=== PATIENT | female | born 1980 | race Two or more races ===

== ENCOUNTER 2020-07-29 09:47 | Outpatient (REF) | payer MEDICAID, SELFPAY | END 2020-07-29 09:48 | disposition home or self-care (01) | LOC: HO.LAB 09:47 | PROVIDERS: PCP Internal Medicine Geriatric Medicine; Visit Provider Internal Medicine | DX: Z20.828 Contact with and (suspected) exposure to other viral communicable diseases (principal) | CPT/HCPCS: 87635 ==

== ENCOUNTER 2020-08-08 15:52 | Outpatient (REF) | payer MEDICAID, SELFPAY | END 2020-08-08 15:53 | disposition home or self-care (01) | LOC: HO.LAB 15:52 | PROVIDERS: Visit Provider Internal Medicine | DX: Z20.828 Contact with and (suspected) exposure to other viral communicable diseases (principal) | CPT/HCPCS: U0003 ==

== ENCOUNTER 2020-09-05 06:29 | Outpatient (REF) | payer MEDICAID, SELFPAY | END 2020-09-05 06:30 | disposition home or self-care (01) | LOC: HO.LAB 06:29 | PROVIDERS: Visit Provider Internal Medicine | DX: Z20.828 Contact with and (suspected) exposure to other viral communicable diseases (principal) | CPT/HCPCS: C9803; U0003 ==

== ENCOUNTER 2020-09-27 08:36 | Outpatient (REF) | payer MEDICAID, SELFPAY ==
--- NOTE | 2020-09-27 08:41 | US_ITS ---
EXAMINATION: PELVIC ULTRASOUND CLINICAL INFORMATION: Irregular bleeding. Check IUD. COMPARISON: Previous exam December 2016 TECHNIQUE: Transabdominal and transvaginal pelvic ultrasound was performed. Transvaginal exam was performed for better visualization of the uterus and ovaries. FINDINGS: The uterus is anteverted and measures 10.3 x 5 x 6.1 cm in dimension. There is an IUD in the uterus in the lower uterine segment/upper cervix. Endometrial thickness measures 0.9 cm. There is a 1.9 x 1.7 x 1.6 cm hypoechoic area adjacent to the endometrial in the anterior right uterine body questionable for a fibroid. No other focal uterine lesion is seen. There are nabothian cysts in the cervix. The ovaries are normal-appearing. The right ovary measures 2.6 x 2.7 x 3 cm and the left ovary measures 3.3 x 2.2 x 2.8 cm. There is no fluid in the pelvis. US/US transvaginal IMPRESSION: Low position of the IUD in the lower uterine segment and upper cervix. Question 1.9 x 1.7 x 1.6 cm right anterior uterine body fibroid adjacent to the endometrium.
--- NOTE | 2020-09-27 08:41 | US_ITS ---
EXAMINATION: PELVIC ULTRASOUND CLINICAL INFORMATION: Irregular bleeding. Check IUD. COMPARISON: Previous exam December 2016 TECHNIQUE: Transabdominal and transvaginal pelvic ultrasound was performed. Transvaginal exam was performed for better visualization of the uterus and ovaries. FINDINGS: The uterus is anteverted and measures 10.3 x 5 x 6.1 cm in dimension. There is an IUD in the uterus in the lower uterine segment/upper cervix. Endometrial thickness measures 0.9 cm. There is a 1.9 x 1.7 x 1.6 cm hypoechoic area adjacent to the endometrial in the anterior right uterine body questionable for a fibroid. No other focal uterine lesion is seen. There are nabothian cysts in the cervix. The ovaries are normal-appearing. The right ovary measures 2.6 x 2.7 x 3 cm and the left ovary measures 3.3 x 2.2 x 2.8 cm. There is no fluid in the pelvis. US/US pelvic complete IMPRESSION: Low position of the IUD in the lower uterine segment and upper cervix. Question 1.9 x 1.7 x 1.6 cm right anterior uterine body fibroid adjacent to the endometrium.
== END 2020-09-27 08:37 | disposition home or self-care (01) ==
LOC: HO.HMGCX 08:36
PROVIDERS: Visit Provider Advanced Practice Midwife
DX: Z30.431 Encounter for routine checking of intrauterine contraceptive device (principal); N92.6 Irregular menstruation, unspecified
CPT/HCPCS: 76830; 76856

== ENCOUNTER 2020-09-27 13:00 | Outpatient (REF) | payer MEDICAID, SELFPAY | END 2020-09-27 13:01 | disposition home or self-care (01) | LOC: HO.LAB 13:00 | PROVIDERS: PCP Internal Medicine Geriatric Medicine; Visit Provider Internal Medicine | DX: Z20.828 Contact with and (suspected) exposure to other viral communicable diseases (principal) | CPT/HCPCS: C9803; U0003 ==

== ENCOUNTER → 2020-10-11 11:56 | Outpatient (BNVA) | payer MEDICAID, SELFPAY | PROVIDERS: Visit Provider Advanced Practice Midwife | DX: Z76.89 Persons encountering health services in other specified circumstances (principal) ==

== ENCOUNTER 2020-10-12 09:43 | Outpatient (REF) | payer MEDICAID, SELFPAY ==
[2020-10-12 11:32] LABS: Hematocrit 46.6 % (37-47); Hemoglobin 15.3 g/dl (12.0-16.0); Mean Corpuscular HGB Conc 32.8 g/dl (31.0-35.0); Mean Corpuscular Hemoglobin 28.9 pg (27.0-33.0); Mean Corpuscular Volume 87.9 fL (80-98); Mean Platelet Volume 8.7 fL (9.4-12.3); Platelet Count 365 X10*3/uL (160-400); Red Cell Distribution Width 12.9 % (11.0-16.0); White Blood Count 7.2 X10*3/uL (4.8-10.8)
[2020-10-12 13:00] LABS: Thyroid Stimulating Hormone 0.62 uIU/mL (0.32-4.0)
[2020-10-13 09:13] LABS: BV Int Neg Control Negative (Negative); BV Int Pos Control Positive (Positive)
[2020-10-13 21:32] LABS: C. trachomatis RNA TMA NOT DETECTED (NOT DETECTED); N. gonorrhoeae RNA TMA NOT DETECTED (NOT DETECTED)
[2020-10-18 02:32] LABS: HPV mRNA E6/E7 rflx Not Detected (Not Detected)
== END 2020-10-12 09:44 | disposition home or self-care (01) ==
LOC: HO.LAB 09:43
PROVIDERS: PCP Internal Medicine Geriatric Medicine; Visit Provider Advanced Practice Midwife
DX: Z12.4 Encounter for screening for malignant neoplasm of cervix (principal); T83.32XA Displacement of intrauterine contraceptive device, initial encounter; N92.0 Excessive and frequent menstruation with regular cycle; N89.8 Other specified noninflammatory disorders of vagina; Z86.19 Personal history of other infectious and parasitic diseases
CPT/HCPCS: 36415; 58301; 84443; 85027; 87480; 87491; 87510; 87591; 87624; 87660; 88142

== ENCOUNTER → 2020-10-26 14:16 | Outpatient (BNVA) | payer MEDICAID, SELFPAY | PROVIDERS: Visit Provider Obstetrics & Gynecology | DX: N92.0 Excessive and frequent menstruation with regular cycle (principal) | CPT/HCPCS: 99212 ==

== ENCOUNTER 2020-10-31 10:40 | Outpatient (REF) | payer MEDICAID, SELFPAY | END 2020-10-31 10:41 | disposition home or self-care (01) | LOC: HO.LAB 10:40 | PROVIDERS: PCP Internal Medicine Geriatric Medicine; Visit Provider Internal Medicine | DX: Z20.822 Contact with and (suspected) exposure to COVID-19 (principal) | CPT/HCPCS: 36415; C9803; U0003 ==

== ENCOUNTER 2020-11-10 08:47 | Outpatient (REF) | payer MEDICAID, SELFPAY | END 2020-11-10 08:48 | disposition home or self-care (01) | LOC: HO.LAB 08:47 | PROVIDERS: PCP Internal Medicine Geriatric Medicine; Visit Provider Obstetrics & Gynecology | DX: N92.0 Excessive and frequent menstruation with regular cycle (principal) | CPT/HCPCS: 58100; 81025; 88305 ==

== ENCOUNTER 2020-11-23 07:52 | Outpatient (REF) | payer MEDICAID, SELFPAY | END 2020-11-23 07:53 | disposition home or self-care (01) | LOC: HO.LAB 07:52 | PROVIDERS: PCP Internal Medicine Geriatric Medicine; Visit Provider Internal Medicine | DX: Z20.822 Contact with and (suspected) exposure to COVID-19 (principal) | CPT/HCPCS: 36415; C9803; U0003; U0005 ==

== ENCOUNTER → 2020-11-24 11:34 | Outpatient (BNVA) | payer MEDICAID, SELFPAY | PROVIDERS: PCP Internal Medicine Geriatric Medicine; Visit Provider Obstetrics & Gynecology ==

== ENCOUNTER 2021-01-05 11:16 | Outpatient (REF) | payer MEDICAID, SELFPAY ==
[2021-01-05 14:17] LABS: SARS COV2 PCR INHOUSE NEGATIVE (Negative)
== END 2021-01-05 11:17 | disposition home or self-care (01) ==
LOC: HO.LAB 11:16
PROVIDERS: Visit Provider Internal Medicine
DX: Z20.822 Contact with and (suspected) exposure to COVID-19 (principal)
CPT/HCPCS: C9803; U0003

== ENCOUNTER 2021-01-12 07:06 | Outpatient (REF) | payer MEDICAID, SELFPAY ==
--- NOTE | ~2021-01-12 | CT_ITS ---
EXAMINATION: CT ABDOMEN WITH CONTRAST CLINICAL INFORMATION: Epigastric pain. COMPARISON: Abdominal ultrasound December 2016 TECHNIQUE: Contiguous axial thin section helical images of the abdomen were performed following the administration of oral contrast and 85 mL of Omnipaque 350 intravenous contrast. The data set was reformatted in the coronal and sagittal planes and reviewed on an independent workstation. This CT examination was performed using dose optimization techniques as appropriate, variously including the following: *Automated exposure control *Adjustment of mA and/or kV according to patient size (this includes techniques or standardized protocols for targeted exams where dose is matched to indication/reason for exam; i.e. extremities or head) *Use of iterative reconstruction technique DLP: 1322 mGy-cm FINDINGS: LUNG BASES: Clear. LIVER, GALLBLADDER, AND BILIARY TREE: There is a subtle ill-defined hypodense area in the right lobe of the liver measuring approximately 10 mm seen on axial image 15/63 series 2. This likely corresponds to the prior echogenic lesion seen on prior ultrasound of 2016. There is no intrahepatic or extrahepatic biliary dilatation. Gallbladder is normal. PANCREAS: Normal. SPLEEN: There is a 6 mm rounded cyst/cystic mass in the spleen. ADRENAL GLANDS: There is a 12 mm hypodense nonspecific left adrenal mass. Right adrenal normal. KIDNEYS AND VISUALIZED URETER: There is a 1 cm cyst in the lower pole of the left kidney. No solid masses or stones. No hydronephrosis or hydroureter. GI TRACT: The stomach is normal. The visualized large and small bowel loops are normal. The appendix is not visualized. LYMPH NODES: Normal. VASCULAR: Unremarkable. PELVIC VISCERA: Partially visualized and unremarkable. ABDOMINAL WALL: Unremarkable. OSSEOUS STRUCTURES: Mild spondylosis of the partially visualized thoracolumbar spine. Multilevel endplate osteophytes in the lower thoracic region as well as at the L5-S1 level indicative of degenerative disc disease. CT/CT abdomen w con IMPRESSION: Indeterminate right liver lesion most likely corresponds to the echogenic lesion noted on the ultrasound of 2017, although I cannot be certain of this. This most likely reflects a hemangioma. Consider followup with ultrasound to further characterize or with a dedicated MRI of the abdomen without and with contrast. Indeterminate left adrenal mass. While statistically this most likely reflects an adenoma, the findings are not definitive for this. A dedicated CT adrenal exam could be performed without and with contrast. Alternatively, an MRI of the abdomen utilizing a dedicated adrenal protocol may also help further characterize. This could likely be done in conjunction with an evaluation for the liver lesion if felt clinically necessary. Small cysts in the left kidney and spleen.
[2021-01-12] MEDS: Barium Sulfate Oral (Vanilla) 450 ML ORAL.SUSP PO (09:01)
== END 2021-01-12 07:07 | disposition home or self-care (01) ==
LOC: HO.CT 07:06
PROVIDERS: Visit Provider Internal Medicine Geriatric Medicine
DX: R10.13 Epigastric pain (principal)
CPT/HCPCS: 74160; Q9967

== ENCOUNTER 2021-01-29 11:45 | Emergency (ER) | payer MEDICAID, SELFPAY ==
--- NOTE | ~2021-01-29 | US_ITS ---
EXAMINATION: US VENOUS ULTRASOUND WITH DOPPLER LOWER EXTREMITY, LEFT CLINICAL INFORMATION: Pain. COMPARISON: None TECHNIQUE: Ultrasound of the deep veins is performed from the hip to the calf with compression sonography and color and pulse Doppler assessment. Spectral analysis with color-flow imaging is performed. FINDINGS: There is normal venous compression and respiratory variation and augmented flow. The visualized common femoral vein, superficial femoral vein, profunda femoral vein, popliteal vein shows no evidence of deep venous thrombosis. Evaluation of the calf veins shows acute thrombosis of the mid posterior tibial veins which are distended with thrombus with diminished blood flow. The adjacent peroneal veins are normal in appearance. There is no significant popliteal fossa cyst. US/US venous duplex LE IMPRESSION: [id number] (calf/distal) acute deep venous thrombosis involving the mid posterior tibial veins. No evidence of venous thrombosis at or above the level of the knee. This critical result was discussed with Dr. Shea by telephone at 1:55 PM on 01/29/2021 and it was ascertained that the content and urgency of the report was understood at the time of direct communication.
--- NOTE | ~2021-01-29 | XR_ITS ---
EXAMINATION: XR TIBIA AND FIBULA, LEFT CLINICAL INFORMATION: Leg pain COMPARISON: None TECHNIQUE: AP and lateral views of the left tibia and fibula were obtained. FINDINGS: The bones and soft tissues are normal. No fracture. No osseous lesions. XR/XR tibia fibula LT 2V IMPRESSION: Normal left tibia and fibula.
[2021-01-29 12:07] VITALS: BP 122/65; PULSE 77; RESP 17; TEMP 36.6; O2SAT 98; BMI 49.6
--- NOTE | 2021-01-29 12:35 | ED.LOWEXIN ---
HPI - Extremity Injury (Lower) General Chief Complaint: Extremity Injury, Lower Stated Complaint: leg pain Time Seen by Provider: 01/29/21 12:28 Source: patient Mode of arrival: ambulatory Limitations: no limitations History of Present Illness HPI Narrative: 40-year-old female came in for evaluation of left lower extremities pain. 40-year-old female with left leg pain for 7 days, pain described as dull aching pain, constant, moderate 6/10, no radiation of the pain. Walking makes the pain worse, nothing make it better. No recent travel or prolonged immobilization no history of DVT. Patient declined any trauma to the left leg or fever or chills. Related Data Home Medications Medication Instructions Recorded Confirmed doxycycline hyclate 100 mg capsule 100 mg PO DAILY 09/05/20 10/26/20 levonorgestrel 20 mcg/24 hours (6 INTRAUTERINE 09/05/20 10/12/20 yrs) 52 mg intrauterine device sumatriptan succinate 25 mg tablet 25 mg PO Q2-4H PRN 09/05/20 10/26/20 topiramate 25 mg tablet 25 mg PO DAILY 09/05/20 10/26/20 Previous Rx's Medication Instructions Recorded valacyclovir 500 mg tablet 1,000 mg PO DAILY #30 tab 10/12/20 medroxyprogesterone 10 mg tablet 10 mg PO DAILY 10 Days #10 tab 11/24/20 Allergies Allergy/AdvReac Type Severity Reaction Status Date / Time ibuprofen [From Motrin] Allergy Unknown HIVES, Verified 11/24/20 11:35 SWELLING Motrin Allergy Unknown Unknown Uncoded 10/26/20 14:23 Pt states no known food Allergy Unknown Unknown Uncoded 10/26/20 14:23 allerg Review of Systems Review of Systems: All other systems are reviewed and are negative Constitutional: Reports as per HPI and Reports no additional constitutional complaints Eyes: Reports as per HPI and Reports no additional eye complaints Reports system reviewed and no additional complaints, except as documented Cardiovascular: Reports as per HPI and Reports no additional cardiovascular complaints Respiratory: Reports as per HPI and Reports no additional respiratory complaints Gastrointestinal: Reports as per HPI and Reports no additional gastrointestinal complaints Genitourinary: Reports no additional female genitourinary complaints Musculoskeletal: Reports no additional musculoskeletal complaints Skin/Breast: Reports system reviewed and no additional complaints, except as docu Psychiatric: Reports no additional psychiatric complaints Endocrine: Reports no additional endocrine complaints Hematologic/Lymphatic: Reports no additional hematologic/lymphatic complaints Allergic/Immunologic: Reports no additional allergic/immunologic complaints Reports system reviewed and no additional complaints, except as documented and Reports Abnormal speech present [facility] Past Medical History Medical History History of major depression Hx of anxiety disorder Hx of herpes simplex infection Hx of insomnia Surgical History Hx of appendectomy Hx of tubal ligation Family History Family History Maternal Grandmother History of breast cancer Maternal Aunt History of breast cancer Social History Social History Alcohol intake: current Alcohol intake frequency: holidays/special occasions only Smoking Status: Never smoker Advance Directives: No Advance Directives Information Provided: No Physical Exam Vital Signs: Vital Signs: Last Vital Signs Temp 98 F 01/29/21 12:07 Pulse 77 01/29/21 12:07 Resp 17 01/29/21 12:07 BP 122/65 01/29/21 12:07 Pulse Ox 98 01/29/21 12:07 Body Mass Index 49.6 Vital signs have been reviewed as appeared to be correct. Blood pressure normal. Heart rate normal. Respiration rate normal. Temperature normal. Oxygen saturation normal. Appearance: Alert. Oriented X3. No acute distress. Head: Normal external exam. Normocephalic. Atraumatic. No Mackay signs noted. No raccoon eyes noted Eyes: PERRLA. EOMI. Conjunctiva and sclera normal. Eyelids normal. ENT: TM's Normal. Pharynx normal. Uvula midline. Moist mucous membranes. No trismus noted. No drooling noted. No muffled voice noted. Neck: Normal inspection. Neck supple. FROM. No adenopathy. Thyroid Normal. No meningeal signs. No neck mass noted. CVS: Normal heart rate and rhythm. Heart sound normal. No murmurs noted. Pulses normal throughout. Respiratory: No respiratory distress. Painless inspiration. Breath sounds normal. No wheezes/rales/rhonchi noted. Chest nontender. No accessory muscle usage noted or decreased air movement noted. Abdomen: Soft and nontender. Bowel sounds normal in all 4 quadrants. No distention noted. No organomegaly noted. No visible injury noted. Back: No CVA tenderness. Full range of motion noted. Skin: Skin warm and dry. Normal skin color. Normal skin turgor. No rashes/lesions/lacerations noted. Extremities: Left calf tenderness, no swelling, no deformity, neurovascularly intact. Patient got COVID vaccination in the left arm which is slightly tender at the area with some erythema, no discharge. Neuro: Oriented X 3. No motor deficit. No sensory deficit. Reflexes normal. Course Course Course Narrative: Assessment and plan. 40-year-old female came in for evaluation of left lower extremities pain ultrasound revealed new acute DVT in the left leg below the knee. Patient require anti coagulation therapy, due to patient's overweight issues most off direct oral anticoagulation agent would be in optimal for her except Xarelto, Xarelto will be started as 15 mg b.i.d. for 21 days then 20 mg p.o. once daily. As I discussed with the patient medicine for occult to follow up with PCP to prescribe and follow-up while she was on anticoagulation therapy. I will prescribe the 1st 21 days worth of Xarelto. Patient was instructed to return immediately to the emergency department if any chest pain or shortness of breath. MDM - Extremity Injury (Lower) Lab Data Attestation: I reviewed the patient's lab results. Result diagrams: 01/29/21 14:29 01/29/21 14:29 Labs: Lab Results 01/29/21 01/29/21 01/29/21 Range/Units 14:29 14:29 14:29 WBC 7.6 (4.8-10.8) X10*3/uL RBC 4.79 (4.20-5.50) X10*6/uL Hgb 14.5 (12.0-16.0) g/dl Hct 43.3 (37-47) % MCV 90.4 (80-98) fL MCH 30.3 (27.0-33.0) pg MCHC 33.5 (31.0-35.0) g/dl RDW 12.6 (11.0-16.0) % Plt Count 335 (160-400) X10*3/uL MPV 8.8 L (9.4-12.3) fL Immature Gran % (Auto) 0.4 (0.0-0.4) % Neut % (Auto) 55.3 (45-73) % Lymph % (Auto) 31.5 (20-40) % [place] % (Auto) 10.1 (2-11) % Eos % (Auto) 2.2 (0-4) % Baso % (Auto) 0.5 (0-2) % Lymph # (Auto) 2.4 (1.2-4.9) X10*3/uL [place] # (Auto) 0.8 (0.1-1.2) X10*3/uL Eos # (Auto) 0.2 (0.0-0.4) X10*3/uL Baso # (Auto) 0.0 (0.0-0.2) X10*3/uL Abs Immat Gran (auto) 0.03 (0.00-0.03) X10*3/uL Absolute Neuts (auto) 4.2 (2.0-8.3) X10*3/uL Absolute Nucleated RBC 0.000 (0.0-0.012) X10*3/uL Nucleated RBC % (auto) 0.0 (0.0-0.2) /100WBC PT (10.8-13.0) SEC INR (0.9-1.1) APTT (24.1-38.0) SEC D-Dimer 1516 NG/ML Sodium 142 (135-145) mmol/L Potassium 4.2 (3.3-5.1) mmol/L Chloride 110 H (96-108) mmol/L Carbon Dioxide 23 (22-29) mmol/L Anion Gap 13 (12-20) BUN 14 (9-16) mg/dL Creatinine 0.76 (0.5-1.4) mg/dL Estim Creat Clear Calc 130.3 Estimated GFR > 60 Random Glucose 84 (60-115) mg/dL Calcium 9.9 (8.4-10.2) mg/dL Total Creatine Kinase (26-140) U/L 01/29/21 01/29/21 Range/Units 14:29 14:30 WBC (4.8-10.8) X10*3/uL RBC (4.20-5.50) X10*6/uL Hgb (12.0-16.0) g/dl Hct (37-47) % MCV (80-98) fL MCH (27.0-33.0) pg MCHC (31.0-35.0) g/dl RDW (11.0-16.0) % Plt Count (160-400) X10*3/uL MPV (9.4-12.3) fL Immature Gran % (Auto) (0.0-0.4) % Neut % (Auto) (45-73) % Lymph % (Auto) (20-40) % [place] % (Auto) (2-11) % Eos % (Auto) (0-4) % Baso % (Auto) (0-2) % Lymph # (Auto) (1.2-4.9) X10*3/uL [place] # (Auto) (0.1-1.2) X10*3/uL Eos # (Auto) (0.0-0.4) X10*3/uL Baso # (Auto) (0.0-0.2) X10*3/uL Abs Immat Gran (auto) (0.00-0.03) X10*3/uL Absolute Neuts (auto) (2.0-8.3) X10*3/uL Absolute Nucleated RBC (0.0-0.012) X10*3/uL Nucleated RBC % (auto) (0.0-0.2) /100WBC PT 12.1 (10.8-13.0) SEC INR 1.0 (0.9-1.1) APTT 38.2 H (24.1-38.0) SEC D-Dimer NG/ML Sodium (135-145) mmol/L Potassium (3.3-5.1) mmol/L Chloride (96-108) mmol/L Carbon Dioxide (22-29) mmol/L Anion Gap (12-20) BUN (9-16) mg/dL Creatinine (0.5-1.4) mg/dL Estim Creat Clear Calc Estimated GFR Random Glucose (60-115) mg/dL Calcium (8.4-10.2) mg/dL Total Creatine Kinase 60 (26-140) U/L Imaging Data Left leg x-ray: Radiologist's impression: Normal left tibia and fibula. Left leg Doppler ultrasound: Radiologist's impression: [id number] (calf/distal) acute deep venous thrombosis involving the mid posterior tibial veins. No evidence of venous thrombosis at or above the level of the knee. Discharge Plan Discharge Clinical Impression: DVT (deep venous thrombosis) Patient Disposition: Home, Self-Care Instructions: Deep Vein Thrombosis (ED) Prescriptions: No Action Mirena 20 mcg/24 hours (6 yrs) 52 mg intrauterine device intrauterine RF: 0 doxycycline hyclate 100 mg capsule 100 mg PO DAILY RF: 0 topiramate 25 mg tablet 25 mg PO DAILY RF: 0 sumatriptan succinate 25 mg tablet 25 mg PO Q2-4H PRNRF: 0 valacyclovir [Valtrex] 500 mg tablet 1,000 mg PO DAILY Qty: 30 RF: 5 medroxyprogesterone [Provera] 10 mg tablet 10 mg PO DAILY 10 Days Qty: 10 RF: 2
[2021-01-29 14:36] LABS: MANUAL DIFF FLAG NO
[2021-01-29 14:37] LABS: Basophils Percent Auto 0.5 % (0-2); Eosinophils Absolute Auto 0.2 X10*3/uL (0.0-0.4); Eosinophils Percent Auto 2.2 % (0-4); Hematocrit 43.3 % (37-47); Hemoglobin 14.5 g/dl (12.0-16.0); Imm Gran Abs Auto 0.03 X10*3/uL (0.00-0.03); Imm Gran Pct Auto 0.4 % (0.0-0.4); Lymphocytes Absolute Auto 2.4 X10*3/uL (1.2-4.9); Lymphocytes Percent Auto 31.5 % (20-40); Mean Corpuscular HGB Conc 33.5 g/dl (31.0-35.0); Mean Corpuscular Hemoglobin 30.3 pg (27.0-33.0); Mean Corpuscular Volume 90.4 fL (80-98); Mean Platelet Volume 8.8 fL (9.4-12.3); Monocytes Absolute Auto 0.8 X10*3/uL (0.1-1.2); Monocytes Percent Auto 10.1 % (2-11); Neutrophils Absolute Auto 4.2 X10*3/uL (2.0-8.3); Neutrophils Percent Auto 55.3 % (45-73); Platelet Count 335 X10*3/uL (160-400); Red Blood Count 4.79 X10*6/uL (4.20-5.50); Red Cell Distribution Width 12.6 % (11.0-16.0); White Blood Count 7.6 X10*3/uL (4.8-10.8)
[2021-01-29 14:43] LABS: Prothrombin Time 12.1 SEC (10.8-13.0)
[2021-01-29 14:46] LABS: Partial Thromboplastin Time 38.2 SEC (24.1-38.0)
[2021-01-29 14:53] LABS: D Dimer 1516 NG/ML
[2021-01-29 15:08] LABS: Anion Gap 13 (12-20); Blood Urea Nitrogen 14 mg/dL (9-16); Calcium 9.9 mg/dL (8.4-10.2); Carbon Dioxide 23 mmol/L (22-29); Chloride 110 mmol/L (96-108); Creatinine Clr Calc Pharmacy 130.3; Estimated Glomerular Filt Rate > 60; Glucose Random 84 mg/dL (60-115); Potassium 4.2 mmol/L (3.3-5.1); Sodium 142 mmol/L (135-145)
[2021-01-29] MEDS: Rivaroxaban 15 MG TABLET PO (15:35)
--- NOTE | 2021-01-29 15:50 | PC.NURSE ---
#20 prn angio inserted left ac during blood draw, removed at time of dc
== END 2021-01-29 15:49 | disposition home or self-care (01) ==
PROVIDERS: Emergency Provider Emergency Medicine; PCP Internal Medicine Geriatric Medicine
DX: I82.402 Acute embolism and thrombosis of unspecified deep veins of left lower extremity (principal); M79.662 Pain in left lower leg; R60.0 Localized edema; Z79.899 Other long term (current) drug therapy
CPT/HCPCS: 36415; 73590; 80048; 82550; 85025; 85379; 85610; 85730; 93971; 99283; 99284

== ENCOUNTER 2021-02-14 13:09 | Outpatient (REF) | payer MEDICAID, SELFPAY ==
[2021-02-14 13:54] LABS: COVID-19 Test Negative (Negative)
== END 2021-02-14 13:10 | disposition home or self-care (01) ==
LOC: HO.LAB 13:09
PROVIDERS: Visit Provider Internal Medicine
DX: Z20.822 Contact with and (suspected) exposure to COVID-19 (principal)
CPT/HCPCS: 36415; 87635; C9803

== ENCOUNTER → 2021-02-28 08:13 | Outpatient (BNVA) | payer MEDICAID, SELFPAY | PROVIDERS: PCP Internal Medicine Geriatric Medicine; Visit Provider Obstetrics & Gynecology | DX: I82.409 Acute embolism and thrombosis of unspecified deep veins of unspecified lower extremity (principal); N92.0 Excessive and frequent menstruation with regular cycle | CPT/HCPCS: 99212 ==

== ENCOUNTER 2021-03-21 10:34 | Outpatient (REF) | payer MEDICAID, SELFPAY ==
[2021-03-21 16:35] LABS: CT PCR NOT DETECTED (Not Detect.); NG PCR NOT DETECTED (Not Detect.)
[2021-03-22 10:04] LABS: BV Int Neg Control Negative (Negative); BV Int Pos Control Positive (Positive)
== END 2021-03-21 10:35 | disposition home or self-care (01) ==
LOC: HO.LAB 10:34
PROVIDERS: PCP Internal Medicine Geriatric Medicine; Visit Provider Advanced Practice Midwife
DX: Z11.3 Encounter for screening for infections with a predominantly sexual mode of transmission (principal); N76.0 Acute vaginitis; Z20.2 Contact with and (suspected) exposure to infections with a predominantly sexual mode of transmission
CPT/HCPCS: 87480; 87491; 87510; 87591; 87660; 99212

== ENCOUNTER 2021-05-15 00:29 | Emergency (ER) | payer MEDICAID, SELFPAY ==
--- NOTE | ~2021-05-15 | CT_ITS ---
EXAMINATION: CT ANGIOGRAM OF THE CHEST WITH AND WITHOUT CONTRAST (CT PULMONARY ANGIOGRAM FOR PE) CLINICAL INFORMATION: Reason for Exam chest pain elevated ddimer COMPARISON: CTA chest dated 07/24/2013 TECHNIQUE: Prior to contrast administration, noncontrast localization images were obtained. Subsequently, multidetector volumetric imaging was performed from the thoracic inlet to below the diaphragms following the administration of 70 mL Omnipaque 350 intravenous contrast. No contrast reaction reported Sagittal, coronal, and MIP oblique sagittal reformatted images were obtained on the CT workstation, uploaded to PACS, and reviewed. This CT examination was performed using dose optimization techniques as appropriate, variously including the following: *Automated exposure control *Adjustment of mA and/or kV according to patient size (this includes techniques or standardized protocols for targeted exams where dose is matched to indication/reason for exam; i.e. extremities or head) *Use of iterative reconstruction technique Total exam dose-length product 603 mGy-cm FINDINGS: QUALITY OF STUDY/CONTRAST BOLUS: Suboptimal. PULMONARY ARTERIES: No central or segmental pulmonary emboli. THORACIC AORTA: No aneurysm or dissection. LUNG: No focal consolidation, nodules or masses. PLEURA: No pleural effusion or pneumothorax. MEDIASTINUM: Normal heart size. No pericardial effusion. No hilar or mediastinal lymphadenopathy. No evidence of septal bowing or right heart strain. No reflux of contrast into the hepatic veins to suggest elevated right heart pressures. CHEST WALL/AXILLA: No axillary or internal mammary lymphadenopathy. OSSEOUS STRUCTURES: No acute or suspicious osseous abnormality. 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 No further follow-up required. CT/CT angio chest PE protocol IMPRESSION: No evidence of pulmonary embolism. No aortic aneurysm or dissection. No pneumonitis, parenchymal consolidation or pneumothorax. VTE: negative
--- NOTE | ~2021-05-15 | XR_ITS ---
EXAMINATION: XR CHEST CLINICAL INFORMATION: Chest pain COMPARISON: 04/27/2019 TECHNIQUE: 2 views of the chest were obtained. FINDINGS: No significant abnormality is noted involving the heart, lungs, mediastinum, bony thorax or soft tissues. XR/XR chest 2V IMPRESSION: Unremarkable examination.
[2021-05-15 01:18] VITALS: BP 128/77; PULSE 77; RESP 18; TEMP 36.8; O2SAT 98; BMI 45.7
--- NOTE | 2021-05-15 02:35 | ED_ITS ---
HPI - Chest Pain General Chief Complaint: Chest Pain Stated Complaint: chest pain/kidney pain Time Seen by Provider: 05/15/21 01:32 Source: patient Mode of arrival: ambulatory Limitations: no limitations History of Present Illness HPI narrative: 40 yo female with hx of DVT - 2 years ago completed xarelto but unsure why she had it, HSV, BARTOLOME, anxiety/depression comes in with c/o upper abdominal pain and chest pain - upper abdominal pain for the last several days had a MRI at [facility] [place] on Saturday no reports known and chest pain > 12 hours now , some nausea as well MD complaint: chest pain and other (upper abdominal pain) Pertinent past history: other (DVT) Onset (ago): day(s) (1) Timing of current episode: constant Prior episodes: No Onset: during rest Pain location: substernal and epigastric Pain radiation: none Severity: moderate Quality: dull Relieving factors: nothing Exacerbating factors: eating Associated symptoms: nausea Treatment prior to arrival: none Related Data Home Medications Medication Instructions Recorded Confirmed doxycycline hyclate 100 mg capsule 100 mg PO DAILY 09/05/20 02/28/21 sumatriptan succinate 25 mg tablet 25 mg PO Q2-4H PRN 09/05/20 02/28/21 topiramate 25 mg tablet 25 mg PO DAILY 09/05/20 02/28/21 Previous Rx's Medication Instructions Recorded valacyclovir 500 mg tablet 1,000 mg PO DAILY #30 tab 10/12/20 (Valtrex) rivaroxaban 15 mg tablet (Xarelto) 15 mg PO BID 21 Days #42 tab 01/29/21 clotrimazole-betamethasone 1 1 appl TOPICAL BID PRN 7 Days #45 g 03/21/21 %-0.05 % topical cream fluconazole 150 mg tablet 150 mg PO ONCE PRN 1 Days #2 tab 03/21/21 (Diflucan) valacyclovir 500 mg tablet 500 mg PO BID 30 Days #60 tab 05/01/21 (Valtrex) famotidine 20 mg tablet (Pepcid) 20 mg PO DAILY PRN #30 tab 05/15/21 Allergies Allergy/AdvReac Type Severity Reaction Status Date / Time ibuprofen [From Motrin] Allergy Unknown HIVES, Verified 03/21/21 11:16 SWELLING Motrin Allergy Unknown Unknown Uncoded 10/26/20 14:23 Review of Systems Review of Systems: Constitutional : No Weight loss, No Fever, No Chills ENT/Mouth : No sore throat, No Rhinorrhea Eyes: No Swelling, No Redness Cardiovascular : pos Chest Pain, No SOB, NoEdema Respiratory : No Cough, No Sputum, No Wheezing Gastrointestinal : Positive Nausea, no Vomiting, no Diarrhea, positive abdominal Pain, No Hematochezia, No Melena Genitourinary : No Dysuria, No Urinary Frequency, No Hematuria, No Urgency Musculoskeletal : No joint pain, No Myalgias, No Joint Swelling Skin : No Skin Lesions, No rash Neuro : No Weakness, No Numbness, No Dizziness, No Headache Psych : No Anxiety/Panic, No Depression Heme/Lymph: No Bruising, No Lymphadenopathy Endocrine : No Polyuria, No Polydipsia All other systems reviewed and are negative. [facility] Past Medical History Attestation statement: The following information was validated with the patient. Medical History DVT (deep venous thrombosis) History of major depression Hx of anxiety disorder Hx of blood clots Hx of herpes simplex infection Hx of insomnia Surgical History Hx of appendectomy Hx of tubal ligation Family History Family History Maternal Grandmother History of breast cancer Maternal Aunt History of breast cancer Social History Social History Alcohol intake: current Alcohol intake frequency: holidays/special occasions only Patient Tobacco Use Status: Never used Tobacco Advance Directives: No Patient : No Physical Exam Vital Signs: Vital Signs: Last Vital Signs Temp 98.3 F 05/15/21 01:18 Pulse 77 05/15/21 03:30 Resp 16 05/15/21 03:08 BP 128/78 05/15/21 03:30 Pulse Ox 97 05/15/21 03:08 Body Mass Index 45.7 Appearance: Alert. Oriented X3. No acute distress. Eyes: Pupils equal, round and reactive to light. ENT: Pharynx normal. Neck: Normal inspection. Neck supple. CVS: Normal heart rate and rhythm. Pulses normal. Respiratory: No respiratory distress. Breath sounds normal. Abdomen: Soft and mild RUQ and epigastric ttp no rebound or guarding Skin: Skin warm and dry. Normal skin color. Normal skin turgor. Extremities: No lower extremity edema. No calf ttp Neuro: Oriented X 3. No motor deficit. No sensory deficit. Course Course Course Narrative: MRI negative at this time from [facility] on saturday when patient had symptoms CTA for PE ordered given elevated ddimer labs stable, negative EKG and troponin MDM - Chest Pain MDM Narrative Medical decision making narrative: 40 yo female with hx of DVT - 2 years ago completed xarelto but unsure why she had it, HSV, BARTOLOME, anxiety/depression comes in with c/o upper abdominal pain and chest pain - upper abdominal pain for the last several days had a MRI at [facility] [place] on Saturday no reports known and chest pain > 12 hours now , some nausea as well at this time records from [facility] requested, IV morphine for pain, troponin x 1, ddimer, possible CT scan of abdomen/chest pending labs Lab Data Result diagrams: 05/15/21 03:02 05/15/21 03:02 Labs: Lab Results 05/15/21 05/15/21 05/15/21 Range/Units 03:02 03:02 03:02 WBC 9.3 (4.8-10.8) X10*3/uL RBC 4.76 (4.20-5.50) X10*6/uL Hgb 14.1 (12.0-16.0) g/dl Hct 42.1 (37-47) % MCV 88.4 (80-98) fL MCH 29.6 (27.0-33.0) pg MCHC 33.5 (31.0-35.0) g/dl RDW 12.1 (11.0-16.0) % Plt Count 342 (160-400) X10*3/uL MPV 8.5 L (9.4-12.3) fL Immature Gran % (Auto) 0.4 (0.0-0.4) % Neut % (Auto) 55.0 (45-73) % Lymph % (Auto) 32.3 (20-40) % [place] % (Auto) 10.4 (2-11) % Eos % (Auto) 1.4 (0-4) % Baso % (Auto) 0.5 (0-2) % Lymph # (Auto) 3.0 (1.2-4.9) X10*3/uL [place] # (Auto) 1.0 (0.1-1.2) X10*3/uL Eos # (Auto) 0.1 (0.0-0.4) X10*3/uL Baso # (Auto) 0.1 (0.0-0.2) X10*3/uL Abs Immat Gran (auto) 0.04 H (0.00-0.03) X10*3/uL Absolute Neuts (auto) 5.1 (2.0-8.3) X10*3/uL Absolute Nucleated RBC 0.000 (0.0-0.012) X10*3/uL Nucleated RBC % (auto) 0.0 (0.0-0.2) /100WBC D-Dimer 396 NG/ML Sodium 141 (135-145) mmol/L Potassium 4.2 (3.3-5.1) mmol/L Chloride 107 (96-108) mmol/L Carbon Dioxide 24 (22-29) mmol/L Anion Gap 14 (12-20) BUN 11 (9-16) mg/dL Creatinine 0.70 (0.5-1.4) mg/dL Estim Creat Clear Calc 134.6 Estimated GFR > 60 Random Glucose 102 (60-115) mg/dL Calcium 9.4 (8.4-10.2) mg/dL Magnesium 1.7 (1.6-2.6) mg/dL Total Bilirubin 0.3 (0.0-1.0) mg/dL Direct Bilirubin 0.2 (0.0-0.5) mg/dL AST 29 (5-31) U/L ALT 53 H (0-31) U/L Alkaline Phosphatase 50 (39-117) U/L Troponin I High Sens (<3.5-17.0) ng/L Total Protein 6.7 (6.5-8.0) g/dL Albumin 3.9 (3.5-5.0) g/dL Lipase 16 (8-78) U/L Urine Color Urine Appearance Urine pH (5.0-8.0) Ur Specific [place] (1.005-1.025) Urine Protein (NEG-TRACE) MG/DL Urine Glucose (UA) (NEG) MG/DL Urine Ketones (NEG) MG/DL Urine Blood (NEG) Urine Nitrite (NEG) Ur Leukocyte Esterase (NEG) Urine RBC (0) /HPF Urine WBC (0-4) /HPF Ur Squamous Epith Cells /LPF Urine Bacteria /LPF Urine Mucus /LPF Urine Test (NEGATIVE) 05/15/21 05/15/21 05/15/21 Range/Units 03:02 03:02 03:02 WBC (4.8-10.8) X10*3/uL RBC (4.20-5.50) X10*6/uL Hgb (12.0-16.0) g/dl Hct (37-47) % MCV (80-98) fL MCH (27.0-33.0) pg MCHC (31.0-35.0) g/dl RDW (11.0-16.0) % Plt Count (160-400) X10*3/uL MPV (9.4-12.3) fL Immature Gran % (Auto) (0.0-0.4) % Neut % (Auto) (45-73) % Lymph % (Auto) (20-40) % [place] % (Auto) (2-11) % Eos % (Auto) (0-4) % Baso % (Auto) (0-2) % Lymph # (Auto) (1.2-4.9) X10*3/uL [place] # (Auto) (0.1-1.2) X10*3/uL Eos # (Auto) (0.0-0.4) X10*3/uL Baso # (Auto) (0.0-0.2) X10*3/uL Abs Immat Gran (auto) (0.00-0.03) X10*3/uL Absolute Neuts (auto) (2.0-8.3) X10*3/uL Absolute Nucleated RBC (0.0-0.012) X10*3/uL Nucleated RBC % (auto) (0.0-0.2) /100WBC D-Dimer NG/ML Sodium (135-145) mmol/L Potassium (3.3-5.1) mmol/L Chloride (96-108) mmol/L Carbon Dioxide (22-29) mmol/L Anion Gap (12-20) BUN (9-16) mg/dL Creatinine (0.5-1.4) mg/dL Estim Creat Clear Calc Estimated GFR Random Glucose (60-115) mg/dL Calcium (8.4-10.2) mg/dL Magnesium (1.6-2.6) mg/dL Total Bilirubin (0.0-1.0) mg/dL Direct Bilirubin (0.0-0.5) mg/dL AST (5-31) U/L ALT (0-31) U/L Alkaline Phosphatase (39-117) U/L Troponin I High Sens < 3.5 (<3.5-17.0) ng/L Total Protein (6.5-8.0) g/dL Albumin (3.5-5.0) g/dL Lipase (8-78) U/L Urine Color YELLOW Urine Appearance HAZY Urine pH 6.0 (5.0-8.0) Ur Specific [place] >= 1.030 H (1.005-1.025) Urine Protein TRACE (NEG-TRACE) MG/DL Urine Glucose (UA) NEG (NEG) MG/DL Urine Ketones NEG (NEG) MG/DL Urine Blood 2+ H (NEG) Urine Nitrite NEG (NEG) Ur Leukocyte Esterase NEG (NEG) Urine RBC 5-9 H (0) /HPF Urine WBC 1-4 (0-4) /HPF Ur Squamous Epith Cells 2+ /LPF Urine Bacteria 2+ /LPF Urine Mucus 2+ /LPF Urine Test NEGATIVE (NEGATIVE) ECG Data ECG #1: Attestation: I personally reviewed and interpreted this ECG as follows: ECG interpretation date: 05/15/21 ECG interpretation time: 02:47 Interpretation: Rate:80 Rhythm: NSR [place]: normal Normal P waves. Normal [place]YDI. Normal QRS complex. ST T wave : normal no ELIDIA qTC: normal prior studies: no acute ischemia The study has been interpreted contemporaneously by me. . Discharge Plan Discharge Clinical Impression: Atypical chest pain Abdominal pain Qualifiers: Abdominal location: epigastric Qualified Code(s): R10.13 - Epigastric pain Patient Disposition: Home, Self-Care Instructions: Chest Pain (ED), Abdominal Pain (ED) Additional Instructions: return to ED for any worsening symptoms or concerns Prescriptions: New famotidine [Pepcid] 20 mg tablet 20 mg PO DAILY PRN (Reason: abdominal discomfort) Qty: 30 RF: 0 No Action valacyclovir [Valtrex] 500 mg tablet 500 mg PO BID 30 Days Qty: 60 RF: 1 Xarelto 15 mg tablet 15 mg PO BID 21 Days Qty: 42 RF: 0 doxycycline hyclate 100 mg capsule 100 mg PO DAILY RF: 0 topiramate 25 mg tablet 25 mg PO DAILY RF: 0 sumatriptan succinate 25 mg tablet 25 mg PO Q2-4H PRNRF: 0 valacyclovir [Valtrex] 500 mg tablet 1,000 mg PO DAILY Qty: 30 RF: 5 clotrimazole-betamethasone 1-0.05 % cream 1 appl topical BID PRN (Reason: itching) 7 Days Qty: 45 RF: 0 fluconazole [Diflucan] 150 mg tablet 150 mg PO ONCE PRN (Reason: personal) 1 Days Qty: 2 RF: 1
--- NOTE | 2021-05-15 02:42 | ECG_ITS ---
Test Reason : CP/KIDNEY PAIN Blood Pressure : / mmHG Vent. Rate : 080 BPM Atrial Rate : 080 BPM P-R Int : 156 ms QRS Dur : 076 ms QT Int : 356 ms P-R-T Axes : 004 037 012 degrees QTc Int : 410 ms Normal sinus rhythm Normal ECG When compared with ECG of 27-APR-2019 17:45, No significant change was found Referred By: Leona Nuno Electronically Signed By:ALEE LIVE MD
[2021-05-15 03:06] LABS: MANUAL DIFF FLAG NO
[2021-05-15 03:08] VITALS: BP 119/78; PULSE 70; RESP 16; O2SAT 97
[2021-05-15 03:10] LABS: Basophils Absolute Auto 0.1 X10*3/uL (0.0-0.2); Basophils Percent Auto 0.5 % (0-2); Eosinophils Absolute Auto 0.1 X10*3/uL (0.0-0.4); Eosinophils Percent Auto 1.4 % (0-4); Glucose Urine UA NEG (NEG); Hematocrit 42.1 % (37-47); Hemoglobin 14.1 g/dl (12.0-16.0); Imm Gran Abs Auto 0.04 X10*3/uL (0.00-0.03); Imm Gran Pct Auto 0.4 % (0.0-0.4); Leukocyte Esterase Urine NEG (NEG); Lymphocytes Percent Auto 32.3 % (20-40); Mean Corpuscular HGB Conc 33.5 g/dl (31.0-35.0); Mean Corpuscular Hemoglobin 29.6 pg (27.0-33.0); Mean Corpuscular Volume 88.4 fL (80-98); Mean Platelet Volume 8.5 fL (9.4-12.3); Monocytes Percent Auto 10.4 % (2-11); Neutrophils Absolute Auto 5.1 X10*3/uL (2.0-8.3); Nitrite Urine NEG (NEG); Platelet Count 342 X10*3/uL (160-400); Red Blood Count 4.76 X10*6/uL (4.20-5.50); Red Cell Distribution Width 12.1 % (11.0-16.0); Specific Gravity - Urine >= 1.030 (1.005-1.025); UACC Culture Trigger NO; Urine Blood 2+ (NEG); Urine Ketones NEG (NEG); Urine Protein TRACE MG/DL (NEG-TRACE); White Blood Count 9.3 X10*3/uL (4.8-10.8)
[2021-05-15] MEDS: Morphine Sulfate 4 MG/ML CARTRIDGE IVPUSH (03:11)
[2021-05-15 03:12] LABS: Appearance Urine HAZY; Color Urine YELLOW
[2021-05-15] MEDS: 0.9 % Sodium Chloride 500 ML IV (03:12)
[2021-05-15 03:13] LABS: UPreg QC Valid YES; Urine Pregnancy NEGATIVE (NEGATIVE)
[2021-05-15 03:17] LABS: Bacteria Urine 2+ /LPF; Mucus Urine 2+ /LPF; Squamous Epithelial Cell Urine 2+ /LPF
[2021-05-15 03:20] LABS: D Dimer 396 NG/ML
[2021-05-15 03:30] VITALS: BP 128/78; PULSE 77
[2021-05-15 03:31] LABS: Troponin-I High Sensitivity < 3.5 ng/L (<3.5-17.0)
[2021-05-15 03:35] LABS: Alanine Aminotransferase 53 U/L (0-31); Albumin Level 3.9 g/dL (3.5-5.0); Alkaline Phosphatase 50 U/L (39-117); Aspartate Amino Transferase 29 U/L (5-31); Bilirubin Direct 0.2 mg/dL (0.0-0.5); Bilirubin Total 0.3 mg/dL (0.0-1.0); Lipase 16 U/L (8-78); Magnesium 1.7 mg/dL (1.6-2.6); Total Protein 6.7 g/dL (6.5-8.0)
[2021-05-15] MEDS: iohexoL 350 MG/ML 100 ML INFUS..BTL 70 ML IV (03:49)
[2021-05-15 04:41] LABS: Anion Gap 14 (12-20); Blood Urea Nitrogen 11 mg/dL (9-16); Calcium 9.4 mg/dL (8.4-10.2); Carbon Dioxide 24 mmol/L (22-29); Chloride 107 mmol/L (96-108); Creatinine Clr Calc Pharmacy 134.6; Estimated Glomerular Filt Rate > 60; Glucose Random 102 mg/dL (60-115); Potassium 4.2 mmol/L (3.3-5.1); Sodium 141 mmol/L (135-145)
== END 2021-05-15 05:30 | disposition home or self-care (01) ==
PROVIDERS: Emergency Provider Emergency Medicine; PCP Internal Medicine Geriatric Medicine
DX: R07.89 Other chest pain (principal); R10.10 Upper abdominal pain, unspecified; Z79.899 Other long term (current) drug therapy; Z86.718 Personal history of other venous thrombosis and embolism; Z79.01 Long term (current) use of anticoagulants
CPT/HCPCS: 36415; 71046; 71275; 80048; 80076; 81001; 81025; 83690; 83735; 84484; 85025; 85379; 93005; 96361; 96374; 96375; 99284; J2270; J2405; Q9967

== ENCOUNTER 2021-05-23 10:23 | Emergency (ER) | payer MEDICAID, SELFPAY ==
--- NOTE | ~2021-05-23 | US_ITS ---
EXAMINATION: US VENOUS ULTRASOUND WITH DOPPLER LOWER EXTREMITY, BILATERAL CLINICAL INFORMATION: Bilateral leg plane. Hepatic lateral one-month ago and also multiple. COMPARISON: None TECHNIQUE: Ultrasound of the deep veins is performed from the hip to the calf with compression sonography and color and pulse Doppler assessment. Spectral analysis with color-flow imaging is performed. FINDINGS: RIGHT: There is normal venous compression and respiratory variation and augmented flow. The visualized common femoral vein, superficial femoral vein, profunda femoral vein, popliteal vein, and the trifurcation region shows no evidence of deep venous thrombosis. There is no significant popliteal fossa cyst. LEFT: There is normal venous compression and respiratory variation and augmented flow. The visualized common femoral vein, superficial femoral vein, profunda femoral vein, popliteal vein, show no evidence of deep venous thrombosis. There is noncompressible gastroc veins with no color Doppler noted in the proximal to mid calf region. There is no significant popliteal fossa cyst. If the patient's symptoms persist, followup ultrasound in 5 days 7 days might be of value to exclude proximal propagation from a non-visualized calf vein. US/US venous duplex LE BI IMPRESSION: No DVT demonstrated in the right lower extremity. Positive DVT in the left calf veins.
[2021-05-23 11:23] VITALS: BP 132/89; PULSE 85; RESP 16; TEMP 36.6; O2SAT 97; BMI 45.7
--- NOTE | 2021-05-23 11:26 | ED.LOWEXIN ---
HPI - Extremity Injury (Lower) General Chief Complaint: Extremity Injury, Lower Stated Complaint: left leg ? blood clot Time Seen by Provider: 05/23/21 11:26 Source: patient Mode of arrival: ambulatory Limitations: no limitations History of Present Illness HPI Narrative: In January patient had a blood clot in her right leg, patient is not on blood thinners. Patient was on Xarelto only for 1 month. No hypercoaguable work up. Patient denies current injury. Patient states she has calf pain on the left no redness. Patient noticed slight swelling over the past few days. Onset (ago): week(s) Severity: mild Relieving factors: nothing Exacerbating factors: palpation Related Data Home Medications Medication Instructions Recorded Confirmed doxycycline hyclate 100 mg capsule 100 mg PO DAILY 09/05/20 02/28/21 sumatriptan succinate 25 mg tablet 25 mg PO Q2-4H PRN 09/05/20 02/28/21 topiramate 25 mg tablet 25 mg PO DAILY 09/05/20 02/28/21 Previous Rx's Medication Instructions Recorded valacyclovir 500 mg tablet 1,000 mg PO DAILY #30 tab 10/12/20 (Valtrex) rivaroxaban 15 mg tablet (Xarelto) 15 mg PO BID 21 Days #42 tab 01/29/21 clotrimazole-betamethasone 1 1 appl TOPICAL BID PRN 7 Days #45 g 03/21/21 %-0.05 % topical cream fluconazole 150 mg tablet 150 mg PO ONCE PRN 1 Days #2 tab 03/21/21 (Diflucan) valacyclovir 500 mg tablet 500 mg PO BID 30 Days #60 tab 05/01/21 (Valtrex) famotidine 20 mg tablet (Pepcid) 20 mg PO DAILY PRN #30 tab 05/15/21 rivaroxaban 15 mg (42)-20 mg (9) See Rx Instructions .ROUTE 05/23/21 tablets in a starter pack (Xarelto .COMPLEX #51 ea DVT-PE Treat 30d Start) Allergies Allergy/AdvReac Type Severity Reaction Status Date / Time ibuprofen [From Motrin] Allergy Unknown HIVES, Verified 03/21/21 11:16 SWELLING Motrin Allergy Unknown Unknown Uncoded 10/26/20 14:23 Review of Systems Constitutional: Constitutional: Reports no additional constitutional complaints Eyes: Eyes: Reports no additional eye complaints ENT: Denies dizziness Cardiovascular: Cardiovascular: Reports no additional cardiovascular complaints Respiratory: Respiratory: Reports as per HPI Gastrointestinal: Gastrointestinal: Reports no additional gastrointestinal complaints Genitourinary: Genitourinary: Reports no additional female genitourinary complaints Musculoskeletal: Musculoskeletal: Reports no additional musculoskeletal complaints Integumentary/Breasts: Skin/Breast: Denies rash Neurologic: Reports system reviewed and no additional complaints, except as documented, Denies dizziness and Denies Sensory deficit (Neuro) Psychiatric: Psychiatric: Denies anxiety PMFSH Past Medical History Medical History DVT (deep venous thrombosis) History of major depression Hx of anxiety disorder Hx of blood clots Hx of herpes simplex infection Hx of insomnia Surgical History Hx of appendectomy Hx of tubal ligation Family History Family History Maternal Grandmother History of breast cancer Maternal Aunt History of breast cancer Social History Social History Alcohol intake: current Alcohol intake frequency: holidays/special occasions only Patient Tobacco Use Status: Never used Tobacco Advance Directives: No Advance Directives Information Provided: No Patient : No Physical Exam Vital Signs: Vital Signs: Last Vital Signs Temp 98.7 F 05/23/21 14:41 Pulse 76 05/23/21 14:41 Resp 16 05/23/21 14:41 BP 121/76 05/23/21 14:41 Pulse Ox 97 05/23/21 14:41 Body Mass Index 45.7 Const: Other: no acute distress Nutritional Appearance: obese Orientation/consciousness: oriented to person and patient oriented x3 Limitations: no limitations HENMT: Head: Yes normal to inspection Ears: external ears normal General nose exam: Normal external nose present Mouth: Normal oral and palatal mucosa present and oropharynx normal Throat: Yes posterior oropharynx normal Eyes: General: appearance normal, both eyes and all related structures Neck: Other: supple Neck: Yes normal visual inspection Chest: Chest palpation & inspection: normal inspection of the chest Resp: Auscultation: clear to auscultation bilaterally Cardio: Jugular venous distension: no JVD Rate: regular rate Rhythm: regular rhythm Heart sounds: S1 normal heart sound present and S2 normal heart sound present GI: Inspection: Yes normal to inspection Palpation (GI): Soft to palpation, nontender and No hepatosplenomegaly present Auscultation: normal bowel sounds : General: Yes no CVA tenderness Back/Spine/Pelvis: Back: no CVA tenderness Skin: General skin exam: no rashes or lesions noted Neuro: General: oriented to person and patient oriented x3 Cranial nerves: Yes CN's II-XII intact bilaterally Motor exam (neuro): 5/5 motor strength present throughout Sensory Exam: No Sensory deficit (Neuro) Extrem: Other: slight left calf tenderness to palpation Psych: Appearance: grossly normal Course Reevaluation(s) Reevaluation #1: Discussed with Dr. Zelaya would like the patient to be on Xarelto Time: 15:08 [facility] - Extremity Injury (Lower) Imaging Data duplex of both legs: Radiologist's impression: IMPRESSION: No DVT demonstrated in the right lower extremity. ? Positive DVT in the left calf veins. Discharge Plan Discharge Clinical Impression: DVT (deep venous thrombosis) Qualifiers: DVT location: lower extremity Affected thrombotic vein of extremity: calf muscle vein Chronicity: acute Laterality: left Qualified Code(s): I82.462 - Acute embolism and thrombosis of left calf muscular vein Patient Disposition: Home, Self-Care Instructions: Deep Vein Thrombosis (ED), Blood Thinners (ED) Prescriptions: New Xarelto DVT-PE Treat 30d Start 15 mg (42)- 20 mg (9) tablets,dose pack See Rx Instructions .ROUTE .COMPLEX Qty: 51 RF: 0 No Action valacyclovir [Valtrex] 500 mg tablet 500 mg PO BID 30 Days Qty: 60 RF: 1 famotidine [Pepcid] 20 mg tablet 20 mg PO DAILY PRN (Reason: abdominal discomfort) Qty: 30 RF: 0 Xarelto 15 mg tablet 15 mg PO BID 21 Days Qty: 42 RF: 0 doxycycline hyclate 100 mg capsule 100 mg PO DAILY RF: 0 topiramate 25 mg tablet 25 mg PO DAILY RF: 0 sumatriptan succinate 25 mg tablet 25 mg PO Q2-4H PRNRF: 0 valacyclovir [Valtrex] 500 mg tablet 1,000 mg PO DAILY Qty: 30 RF: 5 clotrimazole-betamethasone 1-0.05 % cream 1 appl topical BID PRN (Reason: itching) 7 Days Qty: 45 RF: 0 fluconazole [Diflucan] 150 mg tablet 150 mg PO ONCE PRN (Reason: personal) 1 Days Qty: 2 RF: 1 Referrals: Name,MD Artie [Primary Care Provider] - 5 days
[2021-05-23 11:39] VITALS: BP 116/80; PULSE 77; RESP 15; TEMP 36.9; O2SAT 97
[2021-05-23 12:37] VITALS: BP 109/75; PULSE 76; RESP 15; TEMP 36.8; O2SAT 97
[2021-05-23 14:41] VITALS: BP 121/76; PULSE 76; RESP 16; TEMP 37.1; O2SAT 97
== END 2021-05-23 15:18 | disposition home or self-care (01) ==
PROVIDERS: Emergency Provider Emergency Medicine; PCP Internal Medicine Geriatric Medicine
DX: I82.462 Acute embolism and thrombosis of left calf muscular vein (principal); M79.661 Pain in right lower leg; Z86.718 Personal history of other venous thrombosis and embolism
CPT/HCPCS: 93970; 99283; 99284

== ENCOUNTER 2021-06-19 08:43 | Outpatient (REF) | payer MEDICAID, SELFPAY | END 2021-06-19 08:44 | disposition home or self-care (01) | LOC: HO.LAB 08:43 | PROVIDERS: PCP Internal Medicine Geriatric Medicine; Visit Provider Internal Medicine | DX: Z20.822 Contact with and (suspected) exposure to COVID-19 (principal) | CPT/HCPCS: C9803; U0003; U0005 ==

== ENCOUNTER 2021-07-24 08:57 | Outpatient (REF) | payer MEDICAID, SELFPAY ==
--- NOTE | ~2021-07-24 | XR_ITS ---
EXAMINATION: XR KNEE, RIGHT CLINICAL INFORMATION: Right knee pain. COMPARISON: None TECHNIQUE: Four views of the right knee. FINDINGS: Mild medial femoral-tibial and patellofemoral degenerative joint changes are seen with joint space narrowing and mild marginal osteophyte formation medially. There is no acute fracture or dislocation. No significant joint effusion is seen. The soft tissues are unremarkable. XR/XR knee RT 4V IMPRESSION: Mild degenerative joint changes most consistent with osteoarthritis. No acute abnormality.
== END 2021-07-24 08:58 | disposition home or self-care (01) ==
LOC: HO.XRAY 08:57
PROVIDERS: Absent Provider Internal Medicine Geriatric Medicine; PCP Internal Medicine Geriatric Medicine; Visit Provider Internal Medicine
DX: M25.561 Pain in right knee (principal)
CPT/HCPCS: 73564

== ENCOUNTER → 2021-07-25 09:00 | Outpatient (BNV) | payer MEDICAID, SELFPAY | PROVIDERS: Visit Provider Internal Medicine Medical Oncology | DX: I82.492 Acute embolism and thrombosis of other specified deep vein of left lower extremity (principal); Z79.01 Long term (current) use of anticoagulants | CPT/HCPCS: 99203; 99213; 99214 ==

== ENCOUNTER 2021-07-28 07:32 | Outpatient (REF) | payer MEDICAID, SELFPAY ==
--- NOTE | ~2021-07-28 | XR_ITS ---
EXAMINATION: XR KNEE AP STANDING CLINICAL INFORMATION: Pain in unspecified knee. COMPARISON: Radiographs of the right knee done on 07/24/2021. TECHNIQUE: AP bilateral standing view of the knees was obtained. FINDINGS: The bony alignments are intact. Decreased joint space, subchondral sclerosis, minimal osteophyte formation, consistent with mild osteoarthrosis is present at the medial compartment of the right knee. Minimal asymmetric decreased joint space is noted at the medial compartment of the left knee as compared to the lateral side also consistent with subtle mild osteoarthrosis. No focal osseous lesion. Soft tissues are unremarkable. XR/XR knee standing BI IMPRESSION: Osteoarthrosis involving medial compartments of both knees (right greater than left).
== END 2021-07-28 07:33 | disposition home or self-care (01) ==
LOC: HO.HOSX 07:32
PROVIDERS: Visit Provider Physician Assistant
DX: M22.2X2 Patellofemoral disorders, left knee (principal); M22.2X1 Patellofemoral disorders, right knee
CPT/HCPCS: 20610; 73565; 99212; J1040

== ENCOUNTER 2021-07-31 08:21 | Outpatient (REF) | payer MEDICAID, SELFPAY ==
[2021-07-31 16:34] LABS: CT PCR NOT DETECTED (Not Detect.); NG PCR NOT DETECTED (Not Detect.)
== END 2021-07-31 08:22 | disposition home or self-care (01) ==
LOC: HO.LAB 08:21
PROVIDERS: Visit Provider Advanced Practice Midwife
DX: Z01.419 Encounter for gynecological examination (general) (routine) without abnormal findings (principal); N92.0 Excessive and frequent menstruation with regular cycle; N92.6 Irregular menstruation, unspecified; Z80.3 Family history of malignant neoplasm of breast; Z80.41 Family history of malignant neoplasm of ovary; Z80.0 Family history of malignant neoplasm of digestive organs; Z20.2 Contact with and (suspected) exposure to infections with a predominantly sexual mode of transmission
CPT/HCPCS: 87491; 87591

== ENCOUNTER 2022-03-06 09:24 | Outpatient (REF) | payer MEDICAID, SELFPAY ==
--- NOTE | ~2022-03-06 | US_ITS ---
EXAMINATION: US VENOUS ULTRASOUND WITH DOPPLER LOWER EXTREMITY, RIGHT CLINICAL INFORMATION: Pain and elevated d-dimer. COMPARISON: 05/23/2021. TECHNIQUE: Ultrasound of the deep veins is performed from the hip to the calf with compression sonography and color and pulse Doppler assessment. Spectral analysis with color-flow imaging is performed. FINDINGS: There is normal venous compression and respiratory variation and augmented flow. The visualized common femoral vein, superficial femoral vein, profunda femoral vein, popliteal vein, and the trifurcation region shows no evidence of deep venous thrombosis. There is no significant popliteal fossa cyst. If the patient's symptoms persist, followup ultrasound in 5 days 7 days might be of value to exclude proximal propagation from a non-visualized calf vein. US/US venous duplex LE RT IMPRESSION: No DVT demonstrated in the right lower extremity.
== END 2022-03-06 09:25 | disposition home or self-care (01) ==
LOC: HO.US 09:24
PROVIDERS: PCP Internal Medicine Geriatric Medicine; Visit Provider Internal Medicine Medical Oncology
DX: I82.401 Acute embolism and thrombosis of unspecified deep veins of right lower extremity (principal)
CPT/HCPCS: 93971

== ENCOUNTER → 2022-04-16 13:18 | Outpatient (BNVA) | payer MEDICAID, SELFPAY | PROVIDERS: PCP Internal Medicine Geriatric Medicine; Visit Provider Physician Assistant | DX: M23.91 Unspecified internal derangement of right knee (principal); M22.2X1 Patellofemoral disorders, right knee; M22.2X2 Patellofemoral disorders, left knee | CPT/HCPCS: 20610; 99212; J1040 ==

== ENCOUNTER 2022-08-02 09:19 | Outpatient (REF) | payer MEDICAID, SELFPAY | END 2022-08-02 09:20 | disposition home or self-care (01) | LOC: HO.LNP 09:19 | PROVIDERS: Visit Provider Advanced Practice Midwife | DX: Z13.89 Encounter for screening for other disorder (principal) ==

== ENCOUNTER 2022-08-02 09:32 | Outpatient (REF) | payer MEDICAID, SELFPAY ==
[2022-08-02 11:42] LABS: HBc Num1 6.96 S/CO (0.00-0.79); HIV AB/AG Nonreactive (Nonreactive); HIV Num 1 0.08 S/CO (0.00-0.99); ~HepC Num1 0.11 S/CO (0.00-0.79); ~Hepatitis C Antibody Nonreactive (Nonreactive)
[2022-08-02 12:59] LABS: HBc Num2 7.08 S/CO; HBc Num3 7.73 S/CO; Hepatitis B Core Antibody Reactive (Nonreactive)
[2022-08-02 17:18] LABS: CT PCR NOT DETECTED (Not Detect.); NG PCR NOT DETECTED (Not Detect.)
[2022-08-03 05:48] LABS: Syphilis Screen Nonreactive (Nonreactive)
[2022-08-04 05:52] LABS: Hepatitis B Core Antibody IgM NON-REACTIVE (NON-REACTIVE)
== END 2022-08-02 09:33 | disposition home or self-care (01) ==
LOC: HO.LAB 09:32
PROVIDERS: PCP Internal Medicine Geriatric Medicine; Visit Provider Advanced Practice Midwife
DX: Z11.3 Encounter for screening for infections with a predominantly sexual mode of transmission (principal); Z11.4 Encounter for screening for human immunodeficiency virus [HIV]; Z20.2 Contact with and (suspected) exposure to infections with a predominantly sexual mode of transmission
CPT/HCPCS: 86704; 86705; 86780; 86803; 87389; 87491; 87591

== ENCOUNTER 2022-08-06 16:02 | Emergency (ER) | payer OTHER, MEDICAID, SELFPAY ==
[2022-08-06 17:10] VITALS: PULSE 91; RESP 18; TEMP 36.4; O2SAT 97; BMI 46.9
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
[2022-08-06] MEDS: Cyclobenzaprine HCl 5 MG TABLET PO (21:27)
[2022-08-06] MEDS: Ketorolac Tromethamine 15 MG/ML VIAL IM (21:27)
== END 2022-08-06 21:35 | disposition home or self-care (01) ==
PROVIDERS: Emergency Provider Internal Medicine; PCP Internal Medicine Geriatric Medicine
DX: S19.9XXA Unspecified injury of neck, initial encounter (principal); S16.1XXA Strain of muscle, fascia and tendon at neck level, initial encounter; M54.2 Cervicalgia; M54.50 Low back pain, unspecified; V43.52XA Car driver injured in collision with other type car in traffic accident, initial encounter; Y93.9 Activity, unspecified; Y92.410 Unspecified street and highway as the place of occurrence of the external cause; Y99.9 Unspecified external cause status; Z79.899 Other long term (current) drug therapy
CPT/HCPCS: 96372; 99283; 99284; J1885

== ENCOUNTER 2022-09-18 10:27 | Outpatient (REF) | payer MEDICAID, SELFPAY ==
--- NOTE | ~2022-09-18 | US_ITS ---
EXAMINATION: US VENOUS ULTRASOUND WITH DOPPLER LOWER EXTREMITY, RIGHT CLINICAL INFORMATION: Pain behind knee COMPARISON: Previous exam February 2022 TECHNIQUE: Ultrasound of the deep veins is performed from the hip to the calf with compression sonography and color and pulse Doppler assessment. Spectral analysis with color-flow imaging is performed. FINDINGS: There is normal venous compression and respiratory variation and augmented flow. The visualized common femoral vein, superficial femoral vein, profunda femoral vein, popliteal vein, and the trifurcation region shows no evidence of deep venous thrombosis. There is no popliteal fossa cyst. US/US venous duplex LE RT IMPRESSION: No DVT or Rodas's cyst.
== END 2022-09-18 10:28 | disposition home or self-care (01) ==
LOC: HO.US 10:27
PROVIDERS: Visit Provider Internal Medicine Medical Oncology
DX: I82.401 Acute embolism and thrombosis of unspecified deep veins of right lower extremity (principal)
CPT/HCPCS: 93971

== ENCOUNTER 2023-04-10 12:43 | Outpatient (REF) | payer MEDICAID, SELFPAY ==
--- NOTE | ~2023-04-10 | XR_ITS ---
EXAMINATION: XR LUMBOSACRAL SPINE CLINICAL INFORMATION: Acute coccygeal pain. COMPARISON: Radiographs dated 12/12/2008. TECHNIQUE: AP and lateral views of the lumbar spine and lateral view of the lumbosacral junction. FINDINGS: Vertebral body heights are normal. At L5-S1, there is a 4 mm retrolisthesis. The remaining disc spaces are well-maintained. No acute fracture or spondylolisthesis is seen. At T11-T12, there is moderate anterior spondylosis. There is minimal anterior spondylosis extending from L3-L4 through L5-S1. The posterior elements are intact. The paravertebral soft tissues are unremarkable. There are pelvic phleboliths. XR/XR lumbar spine 2-3V IMPRESSION: 1. There is mild to moderate degenerative disc disease at L5-S1. 2. There is multi-level thoracolumbar spondylosis, as detailed.
== END 2023-04-10 12:44 | disposition home or self-care (01) ==
LOC: HO.XRAY 12:43
PROVIDERS: PCP Internal Medicine Geriatric Medicine; Visit Provider Family Medicine
DX: M53.3 Sacrococcygeal disorders, not elsewhere classified (principal)
CPT/HCPCS: 72100

== ENCOUNTER → 2023-04-15 15:15 | Outpatient (BNV) | payer MEDICAID, SELFPAY | PROVIDERS: PCP Internal Medicine Geriatric Medicine; Visit Provider Radiology Diagnostic Radiology | DX: Z12.31 Encounter for screening mammogram for malignant neoplasm of breast (principal) | CPT/HCPCS: 77063; 77067 ==

== ENCOUNTER 2023-04-15 15:18 | Outpatient (REF) | payer MEDICAID, SELFPAY ==
--- NOTE | ~2023-04-15 | MM_ITS ---
EXAMINATION: MM SCREENING DIGITAL BREAST TOMOSYNTHESIS, BILATERAL CLINICAL INFORMATION: Screening. Asymptomatic. The lifetime risk of breast cancer based on the Tyrer-Cuzick Model is 11.9%. COMPARISON: Mammography: Baseline mammogram TECHNIQUE: Digital breast tomosynthesis is performed in both the craniocaudal and mediolateral oblique views along with computer-aided detection (CAD). Synthesized 2D images are generated from the tomosynthesis. FINDINGS: The breasts are almost entirely fatty (ACR BI-RADS breast composition Category a). There are no significant masses, abnormal calcifications, or other abnormalities. The patient has bilateral nipple rings. MM/MM tomosynthesis screening BI IMPRESSION: No mammographic evidence of malignancy. ASSESSMENT: BI-RADS BI-RADS 1 - Negative RECOMMENDATION: Routine annual mammography screening. 1 year F/U This examination should not preclude the clinical evaluation of a suspicious palpable abnormality. This patient's information was entered into a reminder system with a target due date for their next mammogram.
== END 2023-04-15 15:19 | disposition home or self-care (01) ==
LOC: HO.MAMMO 15:18
PROVIDERS: PCP Internal Medicine Geriatric Medicine; Visit Provider Advanced Practice Midwife
DX: Z12.31 Encounter for screening mammogram for malignant neoplasm of breast (principal)
CPT/HCPCS: 77063; 77067

== ENCOUNTER 2023-07-25 13:56 | Outpatient (REF) | payer MEDICAID, SELFPAY ==
--- NOTE | ~2023-07-25 | XR_ITS ---
EXAMINATION: XR FOOT, LEFT CLINICAL INFORMATION: Tender, swollen red area over lateral fifth metatarsal head and part, sensitive area bottom left foot COMPARISON: None available. TECHNIQUE: AP, lateral, and oblique views of the left foot. FINDINGS: Calcaneal spurring. Mild hallux valgus and hammertoe deformities. No fracture, dislocation or bony erosive changes. Mild soft tissue prominence first and fifth metatarsal heads, dorsal and plantar distal foot soft tissues. No abnormal air collections or radiopaque foreign bodies. XR/XR foot LT min 3V IMPRESSION: Soft tissue changes. No acute bony pathology.
== END 2023-07-25 13:57 | disposition home or self-care (01) ==
LOC: HO.HHCX 13:56
PROVIDERS: Visit Provider Emergency Medicine
DX: R22.42 Localized swelling, mass and lump, left lower limb (principal)
CPT/HCPCS: 73630

== ENCOUNTER 2023-07-29 15:36 | Outpatient (AMB) | payer MEDICAID, SELFPAY ==
--- NOTE | 2023-07-29 15:46 | MHC.OFFVIS ---
Intake Vital Signs 07/29/23 15:50 Height 5 ft 3 in Weight 250 lb BMI 44.3 BP 117/75 Blood Pressure Location Rt brachial Position Sitting Pulse 71 Intake Visit Reasons: ? abscess of left foot Intake Note: This patient was referred by for an assessment question left foot abscess. Patient c/o; reports pain, left foot, reports unable to put on shoe due to pain. Apartment Leasing Consultant Required: No Accompanied by: Self / Same As Patient Allergies ibuprofen [From Motrin] Allergy (Unknown, Verified 07/29/23 15:50) Hives, swelling Medication List - Last Reconciled 07/30/23 by Florentino Riley MD aripiprazole 5 mg PO DAILY cholecalciferol (vitamin D3) 50 mcg PO DAILY cyclobenzaprine 5 mg PO TID PRN 7 days duloxetine 30 mg PO QAM famotidine (Pepcid) 20 mg PO DAILY PRN lidocaine 5% (Lidoderm) 1 patch topical DAILY rivaroxaban (Xarelto) 20 mg PO DAILY rivaroxaban 20 mg PO DAILY sumatriptan succinate 25 mg PO Q2-4H PRN topiramate 25 mg PO DAILY valacyclovir (Valtrex) 500 mg PO BID PRN 90 days HPI ? abscess of left foot HPI Details 42-year-old female referred for left foot abscess. She describes having an area of pain and tenderness on the lateral aspect of the left foot for over a week. She saw her primary care physician last week and was referred to me. She denies any drainage. She denies any fever or chills. She denies any trauma to the area. She denies any drainage from the area of concern. [facility] Medical History (Updated 07/30/23 @ 10:35 by Florentino Riley MD) Callus of foot CPAP (continuous positive airway pressure) dependence Morbid obesity with BMI of 45.0-49.9, adult DVT (deep venous thrombosis) Hx of blood clots Hx of herpes simplex infection Hx of insomnia History of major depression Hx of anxiety disorder Surgical History Hx of appendectomy Hx of tubal ligation Family History Maternal Grandmother History of breast cancer Maternal Aunt History of breast cancer Social History Household Members: Children Housing: Apartment Are you a primary client care specialist to a significant other at home: No Do you presently have visiting nurse or other home services: No Alcohol intake: current Alcohol intake frequency: holidays/special occasions only Patient Tobacco Use Status: Current someday Tobacco user service: No Current occupational status: employed Female Reproductive History Menstrual Age of Menarche: 13 Review of Systems Const Denies chills and Denies fever(s) Card Denies chest pain, Denies dyspnea and Denies dyspnea on exertion Resp Denies cough, Denies dyspnea and Denies dyspnea on exertion GI Denies hematochezia and Denies change in bowel habits Denies hematuria Musc Denies back pain and Denies limited range of motion Neuro Denies focal weakness and Denies convulsions Psych Denies depression and Denies mood swings Physical Exam Vital Signs: Last Vital Signs Pulse 71 07/29/23 15:50 BP 117/75 07/29/23 15:50 BMI result Body Mass Index 44.3 Const Other: Morbidly obese General: comfortable and no acute distress Orientation/consciousness: patient oriented x3 Neck Neck: Yes no lymphadenopathy Resp Auscultation: clear to auscultation bilaterally Cardio Rhythm: regular rhythm GI Other: has pannus Palpation (GI): Soft to palpation, nontender and no guarding Neuro General: patient oriented x3 Extrem Other: lateral aspect of left foot is note of a thick callus on the mid part, about 2 cm in diameter, with what appears to be hematoma underneath,no cellulitis, no fluctuance, no induration Assessment & Plan Assessment & Plan (1) Callus of foot: Code(s): L84 - Corns and callosities Plan: Current exam shows what appears to be a thick callus on the left foot with a hematoma underneath. It does not appear that she will require any I&D at this time. I advised her to do warm soaks to the area. Furthermore, I advised her to avoid any tight fitting closed toed shoes for now. I told her to stay vigilant with this area as this can developed an ulcer. I told her to come back the office if she notices any worsening or changes. We may need to debride this down the line as well. She says she is not a diabetic but was told she is a prediabetic. Coding Level of Care Code New Pt Level 3 (49326) Diagnoses Callus of foot L84
[2023-07-29 15:50] VITALS: BP 117/75; PULSE 71; BMI 44.3
== END 2023-07-29 16:06 | disposition home or self-care (01) ==
PROVIDERS: PCP Internal Medicine Geriatric Medicine; Visit Provider Surgery
DX: L84 Corns and callosities (principal)
CPT/HCPCS: 99203

== ENCOUNTER → 2023-07-29 15:36 | Outpatient (BNVA) | payer MEDICAID, SELFPAY | PROVIDERS: PCP Internal Medicine Geriatric Medicine; Visit Provider Surgery ==

== ENCOUNTER 2023-12-06 11:39 | Emergency (ER) | payer OTHER, SELFPAY ==
--- NOTE | ~2023-12-06 | US_ITS ---
EXAMINATION: US VENOUS ULTRASOUND WITH DOPPLER LOWER EXTREMITY, LEFT CLINICAL INFORMATION: Left lower extremity pain. COMPARISON: 05/23/2021 TECHNIQUE: Ultrasound of the deep veins is performed from the hip to the calf with compression sonography and color and pulse Doppler assessment. Spectral analysis with color-flow imaging is performed. FINDINGS: There is normal venous compression and respiratory variation and augmented flow. The visualized common femoral vein, superficial femoral vein, profunda femoral vein, popliteal vein, and the trifurcation region shows no evidence of deep venous thrombosis. If the patient's symptoms persist, followup ultrasound in 5 days 7 days might be of value to exclude proximal propagation from a non-visualized calf vein. US/US venous duplex LE LT IMPRESSION: No DVT demonstrated in the left lower extremity.
[2023-12-06 11:52] VITALS: BP 122/73; PULSE 71; RESP 18; TEMP 36.1; O2SAT 96; BMI 45.0
--- NOTE | 2023-12-06 12:05 | ED.GENADULT ---
HPI - General Adult General Chief complaint: Extremity Problem Stated complaint: leg pain, possible blood clot Time Seen by Provider: 12/06/23 15:25 Source: patient Mode of arrival: ambulatory Limitations: no limitations History of Present Illness HPI narrative: patient with left leg pain for two weeks and was sent in by PMD to make sure no DVT. Patient on xarelto for DVT. Patient describes a shooting pain from hip down to the left lateral knee Onset (ago): week(s) Related Data Home Medications Medication Instructions Recorded Confirmed sumatriptan succinate 25 mg tablet 25 mg PO Q2-4H PRN Migraine 09/05/20 07/30/23 Headache topiramate 25 mg tablet 25 mg PO DAILY 09/05/20 07/30/23 rivaroxaban 15 mg tablet (Xarelto) 20 mg PO DAILY 08/25/21 07/30/23 aripiprazole 10 mg tablet 5 mg PO DAILY depressive disorder 04/16/22 07/30/23 cholecalciferol (vitamin D3) 50 50 mcg PO DAILY 04/16/22 07/30/23 mcg (2,000 unit) tablet duloxetine 30 mg capsule,delayed 30 mg PO QAM depressive disorder 04/16/22 07/30/23 release lidocaine 5 % topical patch 1 patch topical DAILY 04/16/22 07/30/23 (Lidoderm) Previous Rx's Medication Instructions Recorded famotidine 20 mg tablet (Pepcid) 20 mg PO DAILY PRN abdominal 05/15/21 discomfort #30 tabs cyclobenzaprine 5 mg tablet 5 mg PO TID PRN muscle spasm 7 08/06/22 days #21 tabs valacyclovir 500 mg tablet 500 mg PO BID PRN antiviral 90 12/26/22 (Valtrex) days #90 tabs rivaroxaban 20 mg tablet 20 mg PO DAILY #90 tabs 03/14/23 acetaminophen 500 mg tablet 1,000 mg (2 x 500 mg) PO Q6H PRN 12/06/23 (Tylenol Extra Strength) pain #60 tabs cyclobenzaprine 10 mg tablet 10 mg PO TID PRN muscle spasm #20 12/06/23 tabs Allergies Allergy/AdvReac Type Severity Reaction Status Date / Time ibuprofen [From Motrin] Allergy Unknown Hives, Verified 07/29/23 15:50 swelling Review of Systems Review of Systems: Yes all other systems are reviewed and are negative Neurologic: Denies Sensory deficit (Neuro) [facility] Past Medical History Medical History Callus of foot CPAP (continuous positive airway pressure) dependence Morbid obesity with BMI of 45.0-49.9, adult DVT (deep venous thrombosis) Hx of blood clots Hx of herpes simplex infection Hx of insomnia History of major depression Hx of anxiety disorder Surgical History Hx of appendectomy Hx of tubal ligation Family History Family History Maternal Grandmother History of breast cancer Maternal Aunt History of breast cancer Social History Social History Household Members: Children Housing: Apartment Are you a primary careers counsellor to a significant other at home: No Do you presently have visiting nurse or other home services: No Alcohol intake: current Alcohol intake frequency: holidays/special occasions only Patient Tobacco Use Status: Current someday Tobacco user service: No Current occupational status: employed Physical Exam ED Vital Signs: Vital Signs - 24 hr 12/06/23 11:52 Temperature 96.9 F Pulse Rate 71 Respiratory Rate 18 Blood Pressure 122/73 Pulse Oximetry 96 Oxygen Delivery Method Room Air BMI result Body Mass Index 45.0 Const Other: obese female looking older than stated age in no acute distress. Orientation/consciousness: oriented to person and patient oriented x3 Limitations: no limitations HENMT Head: Yes normal to inspection Ears: external ears normal General nose exam: Normal external nose present Mouth: Normal oral and palatal mucosa present and oropharynx normal Throat: Yes posterior oropharynx normal Eyes General: appearance normal, both eyes and all related structures Neck Neck: Yes normal visual inspection Chest Chest palpation & inspection: normal inspection of the chest Resp Auscultation: clear to auscultation bilaterally Cardio Jugular venous distension: no JVD Rate: regular rate Rhythm: regular rhythm Heart sounds: S1 normal heart sound present and S2 normal heart sound present GI Inspection: Yes normal to inspection Palpation (GI): Soft to palpation, nontender and No hepatosplenomegaly present Auscultation: normal bowel sounds Back/Spine/Pelvis Other: left sciatic notch pain to palpation Skin General skin exam: no rashes or lesions noted Neuro General: oriented to person and patient oriented x3 Cranial nerves: Yes CN's II-XII intact bilaterally Motor exam (neuro): 5/5 motor strength present throughout Sensory Exam: No Sensory deficit (Neuro) Extrem Other: Good dorsalis pedis pulses, neuro intact. Psych Appearance: grossly normal Course Course Course Narrative: RME- 42-year-old female presents for evaluation of left leg pain. She was sent by [facility] to rule out DVT of the left lower extremity. She is on Eliquis for history of DVT. Plan for ultrasound Reevaluation(s) Reevaluation #1: will treat for sciatica Time: 15:52 Medical Decision Making Differential Diagnosis Differential Diagnoses: The differential diagnosis associated with the presentation includes DVT, sciatica, cellulitis were all considered Admission/Observation Consideration of admission/observation: Escalation of care including admission/observation considered (upon arrival patient was considered for admission) Independent Interpretation I performed an independent interpretation of an: Ultrasound (no clot seen) Radiology Impression Discussion of test interpretation with radiology: I have reviewed the radiologist's reading. (and agree) Prescription Management I considered prescription management with: Antibiotic (no cellulitis seen) Chronic Conditions Patient?s care impacted by: Diabetes and Hypertension Social Determinants Patient?s care significantly limited by Social Determinants of Health including: Low income Discharge Plan Discharge Clinical Impression: Sciatica Patient Disposition: Home, Self-Care Instructions: Sciatica (ED) Prescriptions: New acetaminophen [Tylenol Extra Strength] 500 mg tablet 1,000 mg PO Q6H PRN (Reason: pain) Qty: 60 0RF cyclobenzaprine 10 mg tablet 10 mg PO TID PRN (Reason: muscle spasm) Qty: 20 0RF No Action valacyclovir [Valtrex] 500 mg tablet 500 mg PO BID PRN (Reason: antiviral) 90 Days Qty: 90 2RF Rx Instructions: taken daily famotidine [Pepcid] 20 mg tablet 20 mg PO DAILY PRN (Reason: abdominal discomfort) Qty: 30 0RF Xarelto 15 mg tablet 20 mg PO DAILY Rx Instructions: must administer with evening meal rivaroxaban 20 mg Tablet 20 mg PO DAILY Qty: 90 4RF Rx Instructions: must administer with evening meal cyclobenzaprine 5 mg tablet 5 mg PO TID PRN (Reason: muscle spasm) 7 Days Qty: 21 0RF topiramate 25 mg tablet 25 mg PO DAILY sumatriptan succinate 25 mg tablet 25 mg PO Q2-4H PRN (Reason: Migraine Headache) Rx Instructions: do not exceed 8 doses per 24 hrs lidocaine [Lidoderm] 5 % adhesive patch,medicated 1 patch topical DAILY duloxetine 30 mg capsule,delayed release(DR/EC) 30 mg PO QAM aripiprazole 10 mg tablet 5 mg PO DAILY cholecalciferol (vitamin D3) 50 mcg (2,000 unit) tablet 50 mcg PO DAILY Referrals: Name,MD Artie [Primary Care Provider] - 5 days
[2023-12-06 16:03] VITALS: BP 129/70; PULSE 76; RESP 16; O2SAT 100
== END 2023-12-06 16:05 | disposition home or self-care (01) ==
PROVIDERS: Emergency Provider Emergency Medicine; PCP Internal Medicine Geriatric Medicine
DX: M54.32 Sciatica, left side (principal); Z86.718 Personal history of other venous thrombosis and embolism; Z79.01 Long term (current) use of anticoagulants
CPT/HCPCS: 93971; 99282; 99284

== ENCOUNTER 2024-08-06 11:07 | Emergency (ER) | payer SELFPAY ==
--- NOTE | ~2024-08-06 | CT_ITS ---
EXAMINATION: CT ANGIOGRAM OF THE CHEST WITH AND WITHOUT CONTRAST (CT PULMONARY ANGIOGRAM FOR PE) CLINICAL INFORMATION: SOB, hx of clot - not on AC COMPARISON: May 2021. TECHNIQUE: Prior to contrast administration, noncontrast localization images were obtained. Subsequently, multidetector volumetric imaging was performed from the thoracic inlet to below the diaphragms following the administration of 85 mL Omnipaque 350 intravenous contrast. No contrast reaction reported Sagittal, coronal, and MIP oblique sagittal reformatted images were obtained on the CT workstation, uploaded to PACS, and reviewed. This CT examination was performed using dose optimization techniques as appropriate, variously including the following: *Automated exposure control *Adjustment of mA and/or kV according to patient size (this includes techniques or standardized protocols for targeted exams where dose is matched to indication/reason for exam; i.e. extremities or head) *Use of iterative reconstruction technique Total exam dose-length product 451 mGy-cm FINDINGS: QUALITY OF STUDY/CONTRAST BOLUS: Suboptimal. PULMONARY ARTERIES: Filling defects in bilateral upper lobe and right lower lobe pulmonary arteries. Possible filling defect in right mid lung pulmonary artery. The smaller more peripheral vessels of the lower lobes are not well opacified. THORACIC AORTA: No aneurysm. LUNG: No focal consolidation, nodules or masses. PLEURA: There is trace posterior right pleural effusion. MEDIASTINUM: No suspiciously enlarged mediastinal or hilar adenopathy. No pericardial effusion. No evidence of septal bowing or right heart strain. CORONARY ARTERY CALCIFICATION: None visualized on this study. CHEST WALL/AXILLA: No axillary or internal mammary lymphadenopathy. OSSEOUS STRUCTURES: Spondylitic change. No acute compression fractures. UPPER ABDOMEN: Hypodense left adrenal nodule larger at 1.8 cm but measuring -24 Hounsfield units, consistent with an adenoma. No reflux of contrast into the hepatic veins to suggest elevated right heart pressures. CT/CT angio chest PE protocol IMPRESSION: CTA findings consistent with bilateral pulmonary emboli. The smaller more peripheral vessels in the lower lobes are not well opacified. Left adrenal nodule is larger since 2020 but measures -24 Hounsfield units and appears consistent with an adenoma. Fleischner guidelines were followed. VTE: positive Electronically signed by: Lionel Mustafa MD 08/06/2024 03:45 PM EDT
[2024-08-06 11:16] VITALS: BP 106/76; PULSE 79; O2SAT 98
--- NOTE | 2024-08-06 11:16 | ECG_ITS ---
Test Reason : CHEST PAIN Blood Pressure : / mmHG Vent. Rate : 073 BPM Atrial Rate : 073 BPM P-R Int : 170 ms QRS Dur : 074 ms QT Int : 358 ms P-R-T Axes : 000 041 011 degrees QTc Int : 394 ms Normal sinus rhythm Normal ECG When compared with ECG of 15-MAY-2021 00:35, No significant change was found Referred By: Xochitl Ybarra Electronically Signed By:MARK BARRERA
--- NOTE | 2024-08-06 11:16 | ED_ITS ---
HPI - General Adult General Chief complaint: Chest Pain Stated complaint: CP/SOB X2D PER EMS Time Seen by Provider: 08/06/24 11:15 Source: patient and EMS Mode of arrival: EMS Limitations: no limitations History of Present Illness ED Provider: Xochitl Ybarra PA-C HPI narrative: 43-year-old female with a history of BLE DVTs on rivaroxaban presents to the ED today with a chief complaint of chest pain x 3 days. The chest pain is worse with breathing and radiates to the back. Her pain is much worsended by deep breathes and she describes it as a squeezing sensation when she breathes. She has been unable to take her rivaroxaban due to insurance issues since November. About 2 months ago she experienced LLE calf pain which she states felt similar to how it did when she experienced the DVTs. Denies erythema or edema of the left calf and symptoms resolved spontaneously in 1 week. 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 Denies TENORIO, vision changes, abd pain, N/V, wheezing,cough, SOB or lower extremity pain. Relieving factors: none Exacerbating factors: none Associated symptoms: chest pain Treatments prior to arrival: none Related Data Home Medications ?Medication ?Instructions ?Recorded ?Confirmed sumatriptan succinate 25 mg tablet 25 mg PO Q2-4H PRN Migraine 09/05/20 07/30/23 Headache topiramate 25 mg tablet 25 mg PO DAILY 09/05/20 07/30/23 rivaroxaban 15 mg tablet (Xarelto) 20 mg PO DAILY 08/25/21 07/30/23 aripiprazole 10 mg tablet 5 mg PO DAILY depressive disorder 04/16/22 07/30/23 cholecalciferol (vitamin D3) 50 50 mcg PO DAILY 04/16/22 07/30/23 mcg (2,000 unit) tablet duloxetine 30 mg capsule,delayed 30 mg PO QAM depressive disorder 04/16/22 07/30/23 release lidocaine 5 % topical patch 1 patch topical DAILY 04/16/22 07/30/23 (Lidoderm) Previous Rx's ?Medication ?Instructions ?Recorded famotidine 20 mg tablet (Pepcid) 20 mg PO DAILY PRN abdominal 05/15/21 discomfort #30 tabs cyclobenzaprine 5 mg tablet 5 mg PO TID PRN muscle spasm 7 08/06/22 days #21 tabs valacyclovir 500 mg tablet 500 mg PO BID PRN antiviral 90 12/26/22 (Valtrex) days #90 tabs rivaroxaban 20 mg tablet 20 mg PO DAILY #90 tabs 03/14/23 acetaminophen 500 mg tablet 1,000 mg (2 x 500 mg) PO Q6H PRN 12/06/23 (Tylenol Extra Strength) pain #60 tabs cyclobenzaprine 10 mg tablet 10 mg PO TID PRN muscle spasm #20 12/06/23 tabs apixaban 5 mg (74 tabs) tablets in 5 mg PO BID #74 ea 08/06/24 a dose pack (Eliquis DVT-PE Treat 30D Start) Allergies Allergy/AdvReac Type Severity Reaction Status Date / Time ibuprofen [From Motrin] Allergy Unknown Hives, Verified 08/06/24 11:30 swelling Review of Systems 2 Constitutional: Constitutional: Reports no additional constitutional complaints, Denies chills, Denies excessive sweating, Denies fever(s), Denies headache(s) and Denies night sweats Eyes: Eyes: Reports no additional eye complaints, Denies blurry vision, Denies change in vision, Denies diplopia, Denies eye discharge, Denies loss of vision and Denies eye pain ENT: Denies dizziness and Denies headache(s) Cardiovascular: Cardiovascular: Reports no additional cardiovascular complaints, Reports chest pain, Denies lightheadedness, Denies Loss of Consciousness and Denies dyspnea Respiratory: Respiratory: Reports no additional respiratory complaints, Denies dyspnea and Denies wheezing Gastrointestinal: Gastrointestinal: Reports no additional gastrointestinal complaints, Denies abdominal pain, Denies melena, Denies hematochezia, Denies change in bowel habits and Denies change in stool character Genitourinary: Genitourinary: Denies hematuria, Denies urinary frequency, Denies dysuria, Denies urinary incontinence, Denies urinary hesitancy and Denies urinary urgency Musculoskeletal: Musculoskeletal: Reports no additional musculoskeletal complaints, Reports back pain (center of back worse with breathing ), Denies numbness and Denies tingling Neurologic: Denies dizziness, Denies headache(s), Denies loss of vision, Denies numbness and Denies tingling Psychiatric: Psychiatric: Reports no additional psychiatric complaints Endocrine: Endocrine: Reports no additional endocrine complaints and Denies excessive sweating Hematologic/Lymphatic: Hematologic/Lymphatic: Reports no additional hematologic/lymphatic complaints Allergic/Immunologic: Allergic/Immunologic: Reports no additional allergic/immunologic complaints and Denies wheezing PMFSH Past Medical History Attestation statement: The following information was validated with the patient. Source: old records reviewed and nursing notes reviewed Medical History Callus of foot CPAP (continuous positive airway pressure) dependence Morbid obesity with BMI of 45.0-49.9, adult DVT (deep venous thrombosis) Hx of blood clots Hx of herpes simplex infection Hx of insomnia History of major depression Hx of anxiety disorder Surgical History Hx of appendectomy Hx of tubal ligation Family History Family History Maternal Grandmother History of breast cancer Maternal Aunt History of breast cancer Social History Social History Household Members: Children Housing: Apartment Are you a primary plant health care technician to a significant other at home: No Do you presently have visiting nurse or other home services: No Alcohol intake: current Alcohol intake frequency: holidays/special occasions only Patient Tobacco Use Status: Current someday Tobacco user Smoked in Last 30 Days: No Use of substances other than those prescribed or required for medical reasons: No Advance Directives: No Advance Directives Information Provided: Yes Do you have a plan to hurt others: No Plan Patient : No service: No Current occupational status: employed Physical Exam ED Vital Signs: Vital Signs - 24 hr 08/06/24 16:27 Temperature 97.8 F Pulse Rate 72 Respiratory Rate 18 Blood Pressure 103/67 Pulse Oximetry 100 Oxygen Delivery Method Room Air BMI result Body Mass Index 45.8 Const General: cooperative, no acute distress, alert and awake Nutritional Appearance: well nourished Orientation/consciousness: patient oriented x3 Limitations: no limitations HENMT Head: Yes normal to inspection and Yes atraumatic Ears: hearing grossly normal bilaterally and external ears normal General nose exam: Normal external nose present, no nasal discharge noted and no epistaxis Face and sinus: Yes normal facial exam, No abrasion and No laceration Mouth: Normal oral and palatal mucosa present, no drooling and no muffled voice Eyes General: appearance normal, both eyes and all related structures Periorbital: periorbital findings normal Eyelids: Yes eyelids normal Conjunctivae: conjunctivae normal Pupils: Equal, round and reactive pupils present EOM: EOMs intact bilaterally Neck Neck: Yes normal visual inspection, Yes full ROM and Yes no lymphadenopathy Chest Chest palpation & inspection: normal inspection of the chest Resp Effort & Inspection: normal respiratory effort and able to speak in complete sentences Auscultation: no rales, no rhonchi and no wheezes Cardio Rate: regular rate Rhythm: regular rhythm Heart sounds: no gallops, no murmurs and no rubs GI Inspection: Yes normal to inspection Neuro General: patient oriented x3 and moves all extremities Cranial nerves: Yes Equal, round and reactive pupils present Cognition (Neuro): normal cognition Extrem General: Yes normal to inspection, Yes full ROM and Yes capillary refill normal Psych Appearance: grossly normal Mental Status: mental status grossly normal Affect: normal affect Attitude: cooperative Thought process: Normal thought process present Thought content: Normal thought content present Insight: Good insight present (Psych) Medications Administered Discontinued Medications Generic Name Dose Route Start Last Admin Trade Name Chadwickq PRN Reason Stop Dose Admin Apixaban 10 mg 08/06/24 16:06 08/06/24 16:32 Apixaban 5 Mg Tablet PO 08/06/24 16:07 10 mg ONCE ONE Administration Iohexol 100 ml 08/06/24 12:41 08/06/24 12:41 Iohexol 350 Mg/Ml 100 Ml Infus..Btl IV 08/06/24 12:42 85 ml ONCE ONE Administration Medical Decision Making Medical Decision Making [facility] Narrative: Patient is a 43 year old assigned female at with a history of blood clots not currently on anticoagulation presenting to the emergency department today with chest and back pain. Patient's physical exam was as noted in the physical exam portion of this note. Patient's blood work was unremarkable. Patient's EKG was unremarkable. Patient's CT PE study showed bilateral PEs. I spoke to the vascular team who recommended starting the patient on Eliquis and having her follow up with their office outpatient. I explained my physical exam findings as well as all test results to the patient. I answered all questions asked by the patient. I stressed the importance of the patient taking [his/her/their] medication as directed (either prescribed or as the over the counter packaging recommends). I stressed the importance of the patient following up with her primary care provider and the vascular service. I stressed the importance of the patient returning to the emergency department immediately if her symptoms were to worsen or if she were to develop any dizziness, shortness of breath, difficulty breathing, chest pain, blurry vision, loss of vision, nausea, vomiting, abdominal pain, fever, chills, back pain, or any other complaints. Patient verbalized agreement and understanding with this treatment plan and discharge. Differential Diagnosis Differential Diagnoses: The differential diagnosis associated with the presentation includes PE Chest pain NSTEMI STEMI Admission/Observation Consideration of admission/observation: Escalation of care including admission/observation considered Patient would have been admitted to the hospital had her work up had any findings where hospital admission was appropriate and her clinical presentation warranted hospital admission. Lab Data [facility] Lab Attestation statement: I reviewed the patient's lab results. My interpretation of these results are in the [facility] Rationale portion of this note. 08/06/24 11:43 08/06/24 11:43 Labs: Lab Results 08/06/24 Range/Units 11:43 WBC 7.7 (4.8-10.8) X10*3/uL RBC 4.51 (4.20-5.50) X10*6/uL Hgb 13.3 (12.0-16.0) g/dl Hct 39.6 (37.0-47.0) % MCV 87.8 (80.0-98.0) fL MCH 29.5 (27.0-33.0) pg MCHC 33.6 (31.0-35.0) g/dl RDW 12.4 (11.0-16.0) % Plt Count 331 (160-400) X10*3/uL MPV 8.7 L (9.4-12.3) fL Immature Gran % (Auto) 0.5 H (0.0-0.4) % Neut % (Auto) 57.7 (45-73) % Lymph % (Auto) 26.5 (20-40) % [place] % (Auto) 12.8 H (2-11) % Eos % (Auto) 1.8 (0-4) % Baso % (Auto) 0.7 (0-2) % Lymph # (Auto) 2.0 (1.2-4.9) X10*3/uL [place] # (Auto) 1.0 (0.1-1.2) X10*3/uL Eos # (Auto) 0.1 (0.0-0.4) X10*3/uL Baso # (Auto) 0.1 (0.0-0.2) X10*3/uL Abs Immat Gran (auto) 0.04 H (0.00-0.03) X10*3/uL Absolute Neuts (auto) 4.4 (2.0-8.3) x10*3/uL Absolute Nucleated RBC 0.000 (0.0-0.012) X10*3/uL Nucleated RBC % (auto) 0.0 (0.0-0.2) /100WBC PT 11.1 (10.9-12.4) SEC INR 1.0 (0.9-1.1) APTT 30.7 (26.0-36.8) SEC Sodium 140 (135-145) mmol/L Potassium 3.9 (3.3-5.1) mmol/L Chloride 108 (96-108) mmol/L Carbon Dioxide 25 (22-29) mmol/L Anion Gap 11 L (12-20) BUN 9 (9-16) mg/dL Creatinine 0.66 (0.5-1.4) mg/dL Estim Creat Clear Calc 138.6 Estimated GFR > 60 Random Glucose 109 (60-115) mg/dL Calcium 8.9 D (8.4-10.2) mg/dL Magnesium 1.9 (1.6-2.6) mg/dL Total Bilirubin 0.5 (0.0-1.0) mg/dL AST 33 H (5-31) U/L ALT 28 (0-31) U/L Alkaline Phosphatase 47 (39-117) U/L Troponin I High Sens < 2.7 (<3.5-17.0) ng/L Total Protein 6.9 (6.5-8.0) g/dL Albumin 3.6 (3.5-5.0) g/dL Influenza Type A (PCR) NEGATIVE (Negative) Influenza Type B (PCR) NEGATIVE (Negative) RSV RNA Qual (PCR) NEGATIVE (Negative) SARS-CoV-2 RNA (RT-PCR) NEGATIVE (Negative) Independent Interpretation I performed an independent interpretation of an: EKG Interpretation: My interpretation is in agreement with the radiologist's impression of this imaging study. L EXAMINATION: CT ANGIOGRAM OF THE CHEST WITH AND WITHOUT CONTRAST (CT PULMONARY ANGIOGRAM FOR PE) CLINICAL INFORMATION: SOB, hx of clot - not on AC COMPARISON: May 2021. TECHNIQUE: Prior to contrast administration, noncontrast localization images were obtained. Subsequently, multidetector volumetric imaging was performed from the thoracic inlet to below the diaphragms following the administration of 85 mL Omnipaque 350 intravenous contrast. No contrast reaction reported. Sagittal, coronal, and MIP oblique sagittal reformatted images were obtained on the CT workstation, uploaded to PACS, and reviewed. This CT examination was performed using dose optimization techniques as appropriate, variously including the following: *Automated exposure control *Adjustment of mA and/or kV according to patient size (this includes techniques or standardized protocols for targeted exams where dose is matched to indication/reason for exam; i.e. extremities or head) *Use of iterative reconstruction technique Total exam dose-length product 451 mGy-cm FINDINGS: QUALITY OF STUDY/CONTRAST BOLUS: Suboptimal. PULMONARY ARTERIES: Filling defects in bilateral upper lobe and right lower lobe pulmonary arteries. Possible filling defect in right mid lung pulmonary artery. The smaller more peripheral vessels of the lower lobes are not well opacified. THORACIC AORTA: No aneurysm. LUNG: No focal consolidation, nodules or masses. PLEURA: There is trace posterior right pleural effusion. MEDIASTINUM: No suspiciously enlarged mediastinal or hilar adenopathy. No pericardial effusion. No evidence of septal bowing or right heart strain. CORONARY ARTERY CALCIFICATION: None visualized on this study. CHEST WALL/AXILLA: No axillary or internal mammary lymphadenopathy. OSSEOUS STRUCTURES: Spondylitic change. No acute compression fractures. UPPER ABDOMEN: Hypodense left adrenal nodule larger at 1.8 cm but measuring -24 Hounsfield units, consistent with an adenoma. No reflux of contrast into the hepatic veins to suggest elevated right heart pressures. CT/CT angio chest PE protocol IMPRESSION: CTA findings consistent with bilateral pulmonary emboli. The smaller more peripheral vessels in the lower lobes are not well opacified. Left adrenal nodule is larger since 2020 but measures -24 Hounsfield units and appears consistent with an adenoma. Fleischner guidelines were followed. VTE: positive Electronically signed by: Lionel Mustafa MD 08/06/2024 03:45 PM EDT RP Dictated By: Lionel Mustafa Signed By: Electronically signed by Lionel Mustafa 08/06/24 1545 Vent. Rate: 073 BPM Atrial Rate: 073 BPM P-R Int: 170 ms QRS Dur: 074 ms QT Int: 358 ms P-R-T Axes: 000 041 011 degrees QTc Int: 394 ms Normal sinus rhythm Normal ECG When compared with ECG of 15-MAY-2021 00:35, No significant change was found DD/ [id number] Radiology Impression Discussion of test interpretation with radiology: I have reviewed the radiologist's reading. Critical Care Time Critical Care Time Critical Care Time: Yes Total Critical Care Time: 47 Attestation: I spent 47 minutes of Critical Care Time with this patient. This does not include time spent on separately reported billable procedures. Discharge Plan Discharge Clinical Impression: Chest pain, Bilateral pulmonary embolism Patient Disposition: Home, Self-Care Instructions: Chest Pain (DC), Blood Thinners (ED) Additional Instructions: Take your medication as prescribed. Follow up with your primary care provider and the vascular surgeon. Return to the emergency department immediately if your symptoms worsen or if you develop any dizziness, shortness of breath, difficulty breathing, chest pain, blurry vision, loss of vision, nausea, vomiting, abdominal pain, fever, chills, back pain, or any other complaints. Prescriptions: New Eliquis DVT-PE Treat 30D Start 5 mg (74 tabs) tablets,dose pack 5 mg PO BID Qty: 74 0RF No Action valacyclovir [Valtrex] 500 mg tablet 500 mg PO BID PRN (Reason: antiviral) 90 Days Qty: 90 2RF Rx Instructions: taken daily famotidine [Pepcid] 20 mg tablet 20 mg PO DAILY PRN (Reason: abdominal discomfort) Qty: 30 0RF Xarelto 15 mg tablet 20 mg PO DAILY Rx Instructions: must administer with evening meal rivaroxaban 20 mg Tablet 20 mg PO DAILY Qty: 90 4RF Rx Instructions: must administer with evening meal cyclobenzaprine 5 mg tablet 5 mg PO TID PRN (Reason: muscle spasm) 7 Days Qty: 21 0RF acetaminophen [Tylenol Extra Strength] 500 mg tablet 1,000 mg PO Q6H PRN (Reason: pain) Qty: 60 0RF cyclobenzaprine 10 mg tablet 10 mg PO TID PRN (Reason: muscle spasm) Qty: 20 0RF topiramate 25 mg tablet 25 mg PO DAILY sumatriptan succinate 25 mg tablet 25 mg PO Q2-4H PRN (Reason: Migraine Headache) Rx Instructions: do not exceed 8 doses per 24 hrs lidocaine [Lidoderm] 5 % adhesive patch,medicated 1 patch topical DAILY duloxetine 30 mg capsule,delayed release(DR/EC) 30 mg PO QAM aripiprazole 10 mg tablet 5 mg PO DAILY cholecalciferol (vitamin D3) 50 mcg (2,000 unit) tablet 50 mcg PO DAILY Referrals: [facility] Vascular Services [Provider Group] Name,MD Artie [Primary Care Provider] - Stand Alone Forms: Work/School Release Interventions: ED Discharge Assessment Last Done: 08/06/24 16:27 Discharge Date/Time: 08/06/24 16:33 Print Language: Luxembourgish
[2024-08-06 11:27] VITALS: BP 107/57; PULSE 76; RESP 16; TEMP 36.7; O2SAT 97; BMI 45.8
[2024-08-06 11:49] LABS: MANUAL DIFF FLAG NO
[2024-08-06 11:55] LABS: Basophils Absolute Auto 0.1 X10*3/uL (0.0-0.2); Basophils Percent Auto 0.7 % (0-2); Eosinophils Absolute Auto 0.1 X10*3/uL (0.0-0.4); Eosinophils Percent Auto 1.8 % (0-4); Hematocrit 39.6 % (37.0-47.0); Hemoglobin 13.3 g/dl (12.0-16.0); Imm Gran Abs Auto 0.04 X10*3/uL (0.00-0.03); Imm Gran Pct Auto 0.5 % (0.0-0.4); Lymphocytes Percent Auto 26.5 % (20-40); Mean Corpuscular HGB Conc 33.6 g/dl (31.0-35.0); Mean Corpuscular Hemoglobin 29.5 pg (27.0-33.0); Mean Corpuscular Volume 87.8 fL (80.0-98.0); Mean Platelet Volume 8.7 fL (9.4-12.3); Monocytes Percent Auto 12.8 % (2-11); Neutrophils Absolute Auto 4.4 x10*3/uL (2.0-8.3); Neutrophils Percent Auto 57.7 % (45-73); Platelet Count 331 X10*3/uL (160-400); Red Blood Count 4.51 X10*6/uL (4.20-5.50); Red Cell Distribution Width 12.4 % (11.0-16.0); White Blood Count 7.7 X10*3/uL (4.8-10.8)
[2024-08-06 11:56] LABS: Prothrombin Time 11.1 SEC (10.9-12.4)
[2024-08-06 11:59] LABS: Partial Thromboplastin Time 30.7 SEC (26.0-36.8)
[2024-08-06 12:13] LABS: Alanine Aminotransferase 28 U/L (0-31); Albumin Level 3.6 g/dL (3.5-5.0); Alkaline Phosphatase 47 U/L (39-117); Anion Gap 11 (12-20); Aspartate Amino Transferase 33 U/L (5-31); Bilirubin Total 0.5 mg/dL (0.0-1.0); Blood Urea Nitrogen 9 mg/dL (9-16); Calcium 8.9 mg/dL (8.4-10.2); Carbon Dioxide 25 mmol/L (22-29); Chloride 108 mmol/L (96-108); Creatinine Clr Calc Pharmacy 138.6; Estimated Glomerular Filt Rate > 60; Glucose Random 109 mg/dL (60-115); Magnesium 1.9 mg/dL (1.6-2.6); Potassium 3.9 mmol/L (3.3-5.1); Sodium 140 mmol/L (135-145); Total Protein 6.9 g/dL (6.5-8.0); Troponin-I High Sensitivity < 2.7 ng/L (<3.5-17.0)
[2024-08-06 12:32] LABS: Influenza A PCR NEGATIVE (Negative); Influenza B PCR NEGATIVE (Negative); Resp Syncy Virus RNA Qual PCR NEGATIVE (Negative); SARS COV2 PCR INHOUSE NEGATIVE (Negative)
[2024-08-06] MEDS: iohexoL 350 MG/ML 100 ML INFUS..BTL IV (12:41)
--- NOTE | 2024-08-06 12:42 | PC.NURSE ---
patient from urgent care with cc of substernal chest pain that radiates to her back for the last few days. patient states she has had some associated shortness of breath when the episodes happen, however denies cough, fevers, chills, or any sick contacts. patient also states she is supposed to be on multiple prescription medications but has been unable to have them filled due to not having insurance at this time. patient VS and EKG WNL. denies any other symptoms at this time, 18g PIV placed by EMS in [facility].
[2024-08-06 16:27] VITALS: BP 103/67; PULSE 72; RESP 18; TEMP 36.6; O2SAT 100
[2024-08-06] MEDS: Apixaban 5 MG TABLET 10 MG PO (16:32)
== END 2024-08-06 16:33 | disposition home or self-care (01) ==
PROVIDERS: Physician Assistant Medical; Emergency Provider Emergency Medicine Emergency Medical Services; PCP Internal Medicine Geriatric Medicine
DX: R07.9 Chest pain, unspecified (principal); I26.99 Other pulmonary embolism without acute cor pulmonale; Z03.818 Encounter for observation for suspected exposure to other biological agents ruled out; R06.02 Shortness of breath; I82.403 Acute embolism and thrombosis of unspecified deep veins of lower extremity, bilateral; Z79.899 Other long term (current) drug therapy
CPT/HCPCS: 0241U; 71275; 80053; 83735; 84484; 85025; 85610; 85730; 93005; 99284; Q9967

== ENCOUNTER → 2024-08-06 11:16 | Outpatient (BNV) | payer SELFPAY | PROVIDERS: Emergency Provider Emergency Medicine Emergency Medical Services; PCP Internal Medicine Geriatric Medicine; Visit Provider Internal Medicine | DX: R07.9 Chest pain, unspecified (principal) | CPT/HCPCS: 93010 ==

== ENCOUNTER 2025-03-06 08:00 | Outpatient (REF) | payer OTHER, SELFPAY ==
[2025-03-06 08:10] LABS: MANUAL DIFF FLAG NO
[2025-03-06 08:23] LABS: Basophils Percent Auto 0.6 % (0-2); Eosinophils Absolute Auto 0.1 X10*3/uL (0.0-0.4); Eosinophils Percent Auto 1.9 % (0-4); Hematocrit 40.5 % (37.0-47.0); Hemoglobin 13.8 g/dl (12.0-16.0); Imm Gran Abs Auto 0.03 X10*3/uL (0.00-0.03); Imm Gran Pct Auto 0.5 % (0.0-0.4); Lymphocytes Absolute Auto 2.4 X10*3/uL (1.2-4.9); Lymphocytes Percent Auto 37.8 % (20-40); Mean Corpuscular HGB Conc 34.1 g/dl (31.0-35.0); Mean Corpuscular Hemoglobin 29.4 pg (27.0-33.0); Mean Corpuscular Volume 86.2 fL (80.0-98.0); Mean Platelet Volume 8.4 fL (9.4-12.3); Monocytes Absolute Auto 0.8 X10*3/uL (0.1-1.2); Neutrophils Percent Auto 47.2 % (45-73); Platelet Count 326 X10*3/uL (160-400); Red Cell Distribution Width 12.3 % (11.0-16.0); White Blood Count 6.4 X10*3/uL (4.8-10.8)
[2025-03-06 08:41] LABS: Estimated Average Glucose 117 mg/dL; Hemoglobin A1c % 5.7 % (<6.0)
[2025-03-06 09:02] LABS: Alanine Aminotransferase 51 U/L (0-31); Albumin Level 3.8 g/dL (3.5-5.0); Alkaline Phosphatase 44 U/L (39-117); Anion Gap 11 (12-20); Aspartate Amino Transferase 36 U/L (5-31); Bilirubin Total 0.5 mg/dL (0.0-1.0); Blood Urea Nitrogen 8 mg/dL (9-16); Calcium 9.1 mg/dL (8.4-10.2); Carbon Dioxide 25 mmol/L (22-29); Chloride 107 mmol/L (96-108); Cholesterol 147 mg/dL (<200); Estimated Glomerular Filt Rate > 60; Glucose Random 102 mg/dL (60-115); HDL Cholesterol 33 mg/dL (>40); LDL Cholesterol Calculated 101 mg/dL (<100); Potassium 4.1 mmol/L (3.3-5.1); Sodium 139 mmol/L (135-145); Total Protein 6.8 g/dL (6.5-8.0); Triglycerides 65 mg/dL (<150)
== END 2025-03-06 08:01 | disposition home or self-care (01) ==
LOC: HO.LAB 08:00
PROVIDERS: PCP Internal Medicine Geriatric Medicine; Visit Provider Internal Medicine Geriatric Medicine
DX: E66.01 Morbid (severe) obesity due to excess calories (principal); I26.99 Other pulmonary embolism without acute cor pulmonale; Z13.1 Encounter for screening for diabetes mellitus
CPT/HCPCS: 36415; 80053; 80061; 83036; 85025

== ENCOUNTER 2025-04-02 11:37 | Outpatient (REF) | payer OTHER, SELFPAY ==
--- OUTSIDE RECORDS SUMMARY | 2025-04-02 12:49 | XMS_ITS | Clinical Summary ---
Author Organization [employer] Address [address] [place] [address] [address] [place] [address] Care Team Providers Care Suspension Cord Tier Name Role Phone Name, Artie PEREZ Primary Care Provider [phone] Allergies Active Allergy Reactions Criticality Noted Date Comments Ibuprofen Hives 03/31/2009 Other reaction(s): Hives/Urticaria Medications * This document contains information received from the source organization and may not represent a complete record from that organization. apixaban (Eliquis) 5 MG tablet Take 1 tablet (5 mg) by mouth 2 times daily. 60 tablet 11 03/05/20 25 Active mometasone (Elocon) 0.1 % ointment Apply topically Once per day. 45 g 2 03/05/20 25 026 Active buPROPion SR (Wellbutrin SR) 150 MG 12 hr tabletIndicati ons:Bipolar affective disorder, remission status unspecified (CMS/HCC) Take 1 tablet by mouth x 3 days THEN one tablet by mouth twice daily. Do not crush, chew, or split. 60 tablet 2 03/05/20 25 Active ARIPiprazole (Abilify) 10 MG tabletIndicati ons:Bipolar affective disorder, remission status unspecified (CMS/HCC) TAKE 1 TABLET BY MOUTH EVERY DAY FOR MOOD STABILITY 30 tablet 03/05/20 25 Active Acetaminophen 500 MG capsuleIndicat ions:Sprain of costal cartilage, initial encounter Take 1 capsule (500 mg) by mouth every 8 (eight) hours if needed for moderate pain or fever. 30 capsule 03/17/20 25 025 Active nicotine (Nicoderm CQ) 7 MG/24HR patchIndicatio ns:Tobacco use Place 1 patch on the skin 1 (one) time each day at the same time. 30 patch 02/02/20 23 025 Discontinued valACYclovir (Valtrex) 500 MG tablet 12/27/19 23 025 Discontinued rivaroxaban (Xarelto) 20 MG tablet Take 1 tablet (20 mg) by mouth with evening meal. 30 tablet 02/13/20 24 025 Discontinued(Th erapy completed) ARIPiprazole (Abilify) 10 MG tablet TAKE 1 TABLET BY MOUTH EVERY DAY FOR MOOD STABILITY 30 tablet 02/13/20 24 025 Discontinued DULoxetine (Cymbalta) [address] capsule TAKE 1 CAPSULE BY MOUTH EVERY MORNING FOR DEPRESSION 30 capsule 02/13/20 025 Discontinued hydrOXYzine HCl (Atarax) 50 MG tablet TAKE 1/2 TO 1 TABLET BY MOUTH TWICE DAILY NEEDED FOR ANXIETY OR PANIC 30 tablet 02/13/20 025 Discontinued zolpidem (Ambien) 10 MG tablet TAKE 1/2 TO 1 TABLET BY MOUTH AT BEDTIME NEEDED FOR INSOMNIA 30 tablet 02/13/20 025 Discontinued Active Problems Problem Noted Date Diagnosed Date SANNA (generalized anxiety disorder) 02/13/2024 History of suicidal behavior 02/13/2024 Acute coccygeal pain 04/08/2023 Assessment & Plan (04/08/2023 5:27 PM EDT): Due to mechanical fall. No evidence of hematoma. Likely musculoskeletal. Non- focal, normal motor exam without neurological deficits. No back pain red-flags: bowel/bladder incontinence, IVDU, urinary retention, saddle anesthesia, and significant motor deficits. - Physical therapy referral offered and she will call if no improment in a few weeks. - Acetmenophen and pt has tramadol for pain. -work note given -check x ray DVT (deep venous thrombosis) 04/08/2023 Adenoma of left adrenal gland 02/01/2023 Insomnia 02/01/2023 Lactose intolerance 02/01/2023 Lumbar radiculitis 02/01/2023 Migraine 02/01/2023 Migraine without aura, not refractory 02/01/2023 H/O tubal ligation 02/01/2023 Knee pain 12/23/2018 Asteatosis cutis 05/05/2018 Irritant contact dermatitis due to detergent Severe episode of recurrent major depressive disorder, without psychotic features 01/12/2016 Overview (02/01/2023): In hospital 04/14 Assessment & Plan (02/14/2024 9:50 AM EDT): PROGRESS NOTE: ID: Fanny is a 43 y.o. straight-identified cis-female with previous documented hx of Depression, Anxiety, Self Harm, and Suicide Ideation services including OP Psychotherapy psychopharmacology who presents for Anxiety, Depression, and Suicidal. Fanny has been in a long term unit since 2019, apartment is not up to health code. She has been working with [employer] since 2019 without any success. Living in long term with her 16 y/o son. During IBH Consult Fanny presenting with depressed mood, loss of interests/pleasure , changes in sleep difficulty falling asleep and difficulty staying asleep , change in appetite or weight reduce appetite, psychomotor agitation, trouble concentrating, thoughts of worthlessness or guilt, thoughts about or suicide, fatigue/loss of energy, suicide attempt hx since childhood and excessive worry/anxiety, difficulty controlling worry, restless/keyed up/On edge, easily fatigued, difficulty concentrating/Mind going blank , irritability, muscle tension, and sleep disturbance difficulty falling asleep and difficulty staying asleep ; for a period of 18+ mo, for all symptoms in the context of Ptn facing eviction from long term unit, suicidal attempt last week, lack of support, stress relationship with family and multiple stressful situations experienced in the long term. PLAN: (check all that apply) Behavioral Health Integration Plan Internal Follow up with [facility] Patient Self Plan Patient to utilize skills provided in intervention , Patient to reach out to HHC team as needed, Comply with medication , and Patient to reach out to [facility] as needed Rectal bleeding 11/15/2014 DJD (degenerative joint disease) of knee 015 BARTOLOME (obstructive sleep apnea) 04/13/2014 Severe obesity 01/18/2014 Tension headache 06/29/2010 Elevated rheumatoid factor 06/05/2009 Encounters Date Type Department Care Team Description 03/17/2025 9:00 AM EDT Office Visit [facility] [address] [place] [phone] Adrianna Smart MD Sprain of costal cartilage, initial encounter (Primary Dx); Left leg pain 03/05/2025 9:30 AM EDT Office Visit [facility] [address] [place] [phone] Artie Zelaya MD Pulmonary embolism, unspecified chronicity, unspecified pulmonary embolism type, unspecified whether acute cor pulmonale present (CMS/HCC) (Primary Dx); GONSALEZ (dyspnea on exertion); Recurrent acute deep vein thrombosis (DVT) of lower extremity, unspecified laterality (CMS/HCC); Morbid obesity (CMS/HCC); Bipolar affective disorder, remission status unspecified (CMS/HCC); Chronic bilateral low back pain, unspecified whether sciatica present; Encounter for screening mammogram for malignant neoplasm of breast 03/05/2025 Travel 03/04/[address] [facility] [address] [place] [phone] Artie Zelaya MD CHART PREP 02/25/[address] [facility] [address] [place], [place] [phone] Artie Zelaya MD Pre-visit Planning (SDOH negative, Tobacco screening positive.) 02/15/2025 Telephone [facility] [address] [place] [phone] Artie Zelaya MD Nurse Triage from Last 3 Months Immunizations Immunization Administration Dates Next Due Influenza Injectable Quadriv alant Preservative Free IIV4 MDCK 08/09/2022 Influenza injectable quadriv alent IIV4 with preservative 07/21/2019,07/25/2018,06/28/2017 Influenza injectable quadriv alent preservative free 07/16/2023,09/03/2022,01/12/2016 Influenza, IIV3, injectable 06/15/2015, 5 Moderna Covid-19 Vaccine 12+ 11/15/2021 PPD Test 03/07/2015,05/27/2013 Pfizer Covid-19 Vaccine 12+ 09/03/2023 Pfizer Covid-19 Vaccine 12+ jay-sucrose (Banks Cap) 11/25/2021 TD (adult), 2 Lf tetanus tox oid, preservative free, adsorbed 06/12/2022 Tdap 12/06/2009 Family History Medical History Relation Name Comments Breast cancer Maternal Grandmother Relation Name Status Comments Maternal Grandmother Social History Tobacco Use Types Packs/Day Years Used Date Smoking Tobacco: Some Days Cigarettes Tobacco Cessation:Ready to Q uit: Not Asked; Counseling Given: Not Answered Alcohol Use Standard Drinks/Week Comments Not Currently 0 (1 standard drink = 0.6 oz pur e alcohol) Depression Answer Date Recorded Patient Health Questionnaire-9 Score 24 03/05/2025 Patient Health Questionnaire-9 Score 24 03/05/2025 Last PHQ-9: Questionnaire Data Not on file 0 03/05/2025 Housing Stability Answer Date Recorded What is your housing situation today? I have jada rawls 02/25/[address] you li ve. Do you have problems with any of the following? None of the above 02/25/2025 Food Insecurity Answer Date Recorded Within the past 12 months, y ou worried that your food would run out before you got money to buy more: Never True 02/25/2025 Within the past 12 months,th e food you bought just didn't last and you didn't have enough money to get more: Never True Transportation Answer Date Recorded In the past 12 months, has l ack of transportation kept you from medical appts, meetings, work or from getting things needed for daily living? No 02/25/2025 Utilities Answer Date Recorded In the past 12 months, has t he electric, gas, oil or water company threatened to shut off services in your home? No 02/25/2025 Depression Answer Date Recorded Patient Health Questionnaire-2 Score 3 03/05/2025 Internet Access Answer Date Recorded Internet Access Q1 Yes 02/25/2025 Internet Access Q2 Not on file 02/25/2025 Comments No Sex and Gender Information Value Date Recorded Sex Assigned at Female 08/06/2022 10:17 AM EDT Legal Sex Female 10:17 AM EDT Gender Identity Female 08/06/2022 10:17 AM EDT Sexual Orientation Straight 08/06/2022 10 :17 AM EDT Last Filed Vital Signs Vital Sign Reading Time Taken Comments Blood Pressure 133/86 03/17/2025 8:41 AM EDT Pulse 92 03/17/2025 8:41 AM EDT Temperature 36.7 C (98.1 F) 03/17/2025 8:41 AM EDT Respiratory Rate 17 03/17/2025 8:41 AM EDT Oxygen Saturation 97% 03/17/2025 8:41 AM EDT Inhaled Oxygen Concentration - - Weight 124 kg (274 lb) 03/17/2025 8:41 AM EDT Height 160 cm (5' 3 ) 03/05/2025 9:53 AM EDT Body Mass Index 48.54 03/05/2025 9:53 AM EDT Plan of Treatment Upcoming Encounters Date Type Department Care Team (Late st Contact Info) Description 04/05/2025 11:15 AM EDT Office Visit [facility] [address] [place] [address] Name, MD Artie [address] [place], [place] [phone] Health Maintenance Due Date Last Done Comments Family Planning (PISQ) 1997 Hepatitis B Vaccines (1 of 3 - 19+ 3-dose series) 2001 Pneumococcal Vaccine: Pediatrics (0 to 5 Years) and At-Risk Patients (6 to 49) Years (1 of 2 - PCV) 2001 Pap Smear 10/12/2023 10/12/2020 Mammogram 04/15/2024 04/15/2023 COVID-19 Vaccine ( season) 2024 09/03/2023, 11/25/2021, 11/15/2021, Additional history exists Influenza Vaccine (Season Ended) 2025 07/16/2023, 09/03/2022, 08/09/2022, Additional history exists Depression Monitoring 09/05/2025 03/05/2025, 025 Cervical Cancer Screening 10/12/2025 HPV/Cotest 10/12/2025 10/12/2020 SDOH Screening 02/25/2026 02/25/2025 Alcohol/Substance Use Screening 03/05/2026 03/05/2025 Disability Screening 03/05/2026 03/05/2025 Diabetes: Hemoglobin A1C 03/06/2026 025, 09/13/2022, 03/30/2022 Tobacco Screening 03/17/2026 03/17/2025 Lipid Panel 03/06/2030 03/06/2025, 12/0 05/2022, 03/30/2022 DTaP/Tdap/Td Vaccines (3 - Td or Tdap) 06/12/2032 06/12/2022, 12/06/2009 Zoster Vaccines (1 of 2) 2032 RSV Patients and Patients Aged 60 years or older (1 - 1-dose 75+ series) 2057 HIV Screening Completed 08/02/2022, 08/02/2022 Hepatitis C Screening Completed 08/02/2022, 022 HIB Vaccines Aged Out No longer eligi ble based on patient's age to complete this topic HPV Vaccines Aged Out No longer eligi ble based on patient's age to complete this topic Hepatitis A Vaccines Aged Out No long er eligible based on patient's age to complete this topic IPV Vaccines Aged Out No longer eligi ble based on patient's age to complete this topic Meningococcal B Vaccine Aged Out No l onger eligible based on patient's age to complete this topic Meningococcal Vaccine Aged Out No abundio kenneth eligible based on patient's age to complete this topic RSV under 20 months Aged Out No longe r eligible based on patient's age to complete this topic Rotavirus Vaccines Aged Out No longer eligible based on patient's age to complete this topic Procedures Procedure Name Priority Date/Time Associated Diagnosis Comments HEMOGLOBIN A1C Routine 03/06/2025 8:09 AM EDT Pulmonary embolism, unspecified chronicity, unspecified pulmonary embolism type, unspecified whether acute cor pulmonale present (CMS/HCC) Morbid obesity (CMS/HCC) LIPID PANEL, STANDARD Routine 03/06/2025 8:09 AM EDT Pulmonary embolism, unspecified chronicity, unspecified pulmonary embolism type, unspecified whether acute cor pulmonale present (CMS/HCC) Morbid obesity (CMS/HCC) COMPREHENSIVE METABOLIC PANEL Routine 03/06/2025 8:09 AM EDT Pulmonary embolism, unspecified chronicity, unspecified pulmonary embolism type, unspecified whether acute cor pulmonale present (CMS/HCC) Morbid obesity (CMS/HCC) CBC WITH AUTO DIFFERENTIAL Routine 03/06/2025 8:09 AM EDT Pulmonary embolism, unspecified chronicity, unspecified pulmonary embolism type, unspecified whether acute cor pulmonale present (CMS/HCC) Morbid obesity (CMS/HCC) MAMMOGRAPHY Routine 04/15/2023 [facility] HISTORICAL HEPATITIS C ANTIBODY Routine 08/02/2022 9:54 AM EDT PAP/HPV Routine 10/12/2020 from Last 3 Months or Most Recently Relevant to Health Maintenance Results * (ABNORMAL) CBC auto differential (03/06/2025 8:09 AM EDT) White Blood Count 6.4 4.8 - 10.8 X10*3/uL [facility] Red Blood Count 4.70 4.20 - 5.50 X10*6/uL [facility] Hemoglobin 13.8 12.0 - 16.0 g/dl [facility] Hematocrit 40.5 37.0 - 47.0 % [facility] Mean Corpuscular Volume 86.2 80.0 - 98.0 fL [facility] Mean Corpuscular Hemoglobin 29.4 27.0 - 33.0 pg [facility] Mean Corpuscular HGB Conc 34.1 31.0 - 35.0 g/dl [facility] Red Cell Distribution Width 12.3 11.0 - 16.0 % [facility] Platelet Count 326 160 - 400 X10*3/uL [facility] Mean Platelet Volume 8.4(L) 9.4 - 12.3 fL [facility] Neutrophils Percent Auto 47.2 45 - 73 % [facility] Imm Gran Pct Auto 0.5(H) 0.0 - 0.4 % [facility] Lymphocytes Percent Auto 37.8 20 - 40 % [facility] Monocytes Percent Auto 12.0(H) 2 - 11 % [facility] Eosinophils Percent Auto 1.9 0 - 4 % [facility] Basophils Percent Auto 0.6 0 - 2 % [facility] NRBC Pct Auto 0.0 0.0 - 0.2 /100WBC [facility] Neutrophils Absolute Auto 3.0 2.0 - 8.3 x10*3/uL [facility] Imm Gran Abs Auto 0.03 0.00 - 0.03 X10*3/uL [facility] Lymphocytes Absolute Auto 2.4 1.2 - 4.9 X10*3/uL [facility] Monocytes Absolute Auto 0.8 0.1 - 1.2 X10*3/uL [facility] Eosinophils Absolute Auto 0.1 0.0 - 0.4 X10*3/uL [facility] Basophils Absolute Auto 0.0 0.0 - 0.2 X10*3/uL [facility] NRBC Abs Auto 0.000 0.0 - 0.012 X10*3/uL [facility] Blood Venous blood specimen / Unknown 03/06/2025 8:09 AM EDT 03/06/2025 8:09 AM EDT us Artie Zelaya MD LAB BLOOD ORDERABLES Final Resul t [facility] [address] [place] [phone] * Hemoglobin A1c (03/06/2025 8:09 AM EDT) Hemoglobin A1c 5.7 <6.0 % [facility] Comment:Hemoglobin A1C Refer ence Range Adults: 4.8 - 6.0 % Non diabetic: < 6.0 % Goal: < 7.0 %Additional Action Suggested: > 8.0 %Note: Hemoglobin A1c results are invalid for patients with abnormal amounts of HbF. Blood transfusions may impact the HbA1c concentration in the patient sample. Estimated Average Glucose 117 mg/dL [facility] Comment:eAG = Estimated ave rage glucose which is %A1C expressed asaverage glucose, using the formula of the [id number] Glucose study (ADAG), Diabetes Care, Vol.31,#8,May. 2007 Blood Venous blood specimen / Unknown 03/06/2025 8:09 AM EDT 03/06/2025 8:09 AM EDT us Artie Zelaya MD LAB BLOOD ORDERABLES Final Resul t Performing Organization Address [facility] Co de Phone Number [facility] [address] [place] [phone] * (ABNORMAL) Lipid Panel, Standard (03/06/2025 8:09 AM EDT) Triglycerides 65 <150 mg/dL [facility] Comment:Desirable Triglyceri de: less than 150 mg/dLBorderline High Triglyceride 150-199 mg/dLHigh Triglyceride: 200-499 mg/dLVery High Triglyceride: greater than or equal to 5OO mg/dL Cholesterol 147 <200 mg/dL [facility] Comment:Desirable Cholestero l: less than 200 mg/dLBorderline High Cholesterol: 200-239 mg/dLHigh Cholesterol: greater than 239 mg/dL LDL Cholesterol Calculated 101(H) <100 mg/dL [facility] Comment:Desirable LDL: less than 100 mg/dLNear Optimal/Above Optimal LDL: 110- 129 mg/dLBorderline High LDL: 130-159 mg/dLHigh LDL: 160-189 mg/dLVery High LDL: greater than or equal to 190 mg/dL HDL Cholesterol 33(L) >40 mg/dL [facility] Comment:Desirable HDL: great er than 40 mg/dL Note: This HDL assay may give artificially low results in patients with liver disease. Blood Venous blood specimen / Unknown 03/06/2025 8:09 AM EDT 03/06/2025 8:09 AM EDT us Artie Zelaya MD LAB BLOOD ORDERABLES Final Resul t Performing Organization Address [facility]/ZIP Co de Phone Number [facility] [address] [place] [phone] * (ABNORMAL) Comprehensive Metabolic Panel (03/06/2025 8:09 AM EDT) Pathologist [facility] Sodium 139 135 - 145 mmol/L [facility] Potassium 4.1 3.3 - 5.1 mmol/L [facility] Chloride 107 96 - 108 mmol/L [facility] Carbon Dioxide 25 22 - 29 mmol/L [facility] Anion Gap 11(L) 12 - 20 [facility] Urea Nitrogen (BUN) 8(L) 9 - 16 mg/dL [facility] Creatinine, Serum 0.66 0.5 - 1.4 mg/dL [facility] Estimated Glomerular Filt Rate >60 [facility] Comment:Chronic Kidney Disea se: Estimated GFR < 60 mL/min/[id number] Kidney Disease: Estimated GFR < 15 mL/min/1.73m2 Glucose 102 60 - 115 mg/dL [facility] Calcium 9.1 8.4 - 10.2 mg/dL [facility] Bilirubin, Total 0.5 0.0 - 1.0 mg/dL [facility] Aspartate Amino Transferase 36(H) 5 - 31 U/L [facility] Alanine Aminotransferase 51(H) 0 - 31 U/L [facility] Total Protein 6.8 6.5 - 8.0 g/dL [facility] Albumin Level 3.8 3.5 - 5.0 g/dL [facility] Alkaline Phosphatase 44 39 - 117 U/L [facility] Blood Venous blood specimen / Unknown 03/06/2025 8:09 AM EDT 03/06/2025 8:09 AM EDT us Artie Zelaya MD LAB BLOOD ORDERABLES Final Resul t [facility] [address] [place] [phone] * Mammography (04/15/2023) Pathologist [facility] Mammogram BIRADS 1 Normal, Abnormal, BIRADS 1 , BIRADS 2 Anatomical Region Laterality Modality Other [facility] Final Result * Hepatitis C Antibody (08/02/2022 9:54 AM EDT) Hepatitis C Antibody Nonreactive Nonreactive [facility] Comment: Antibodies to HCV not detected; does not exclude early acute HCV infection. HIV AB/AG Nonreactive Nonreactive [facility] Comment: HIV-1 p24 Ag and/or HIV-1/HIV-2 Ab not detected. A test result that is nonreactive does not exclude the possibility of exposure to or infection with HIV-1 and/or HIV-2. Nonreactive results in this assay for individuals with prior exposure to HIV-1 and/or HIV-2 may be due to antigen and antibody levels that are below the limit of detection of this assay. The [employer] Client Support Consultant HIV Ag/Ab Combo assay result and supplemental assay results should be interpreted in conjunction with the patient's clinical presentation, history and other laboratory results. If the results are inconsistent with clinical evidence, additional testing is suggested to confirm the result. 08/02/2022 9:54 AM EDT [facility] HISTORICAL/NON ORDERABLE LABS Fi nal Result [facility] * HM PAP/HPV (10/12/2020) Pap Smear 1. NILM 1. NILM HPV Not Detected Undetected, Indeterminat e, Quantitative , Not Detected [facility] Final Result from Last 3 Months or Most Recently Relevant to Health Maintenance Insurance [employer] [facility] * Guarantor: Fanny Armstrong Account Type Relation to Patient Date of Phone Billing Address Personal/Family Self [address] [place] [address] * Guarantor: Fanny Armstrong Account Type Relation to Patient Date of Phone Billing Address Personal/Family Self [address] [place] [address] * Guarantor: Fanny Armstrong Account Type Relation to Patient Date of Phone Billing Address Personal/Family Self [address] [place] [address] Care Teams Suspension Cord Tier Relationship Specialty Start Date End Date Name, MD Artie [address] [place] [address] PCP - General Family Medicine 01/11/16
== END 2025-04-02 11:38 | disposition home or self-care (01) ==
LOC: HO.MAMMO 11:37
PROVIDERS: PCP Internal Medicine Geriatric Medicine; Visit Provider Internal Medicine Geriatric Medicine
DX: Z12.31 Encounter for screening mammogram for malignant neoplasm of breast (principal)
CPT/HCPCS: 77063; 77067

== ENCOUNTER → 2025-04-02 11:45 | Outpatient (BNV) | payer OTHER, SELFPAY | PROVIDERS: PCP Internal Medicine Geriatric Medicine; Visit Provider Internal Medicine | DX: Z12.31 Encounter for screening mammogram for malignant neoplasm of breast (principal) | CPT/HCPCS: 77063; 77067 ==

== ENCOUNTER 2025-04-08 10:29 | Outpatient (REF) | payer SELFPAY | END 2025-04-08 10:30 | disposition home or self-care (01) | LOC: HO.LNP 10:29 | PROVIDERS: PCP Internal Medicine Geriatric Medicine; Visit Provider Advanced Practice Midwife | DX: Z01.419 Encounter for gynecological examination (general) (routine) without abnormal findings (principal) | CPT/HCPCS: 99396 ==

== ENCOUNTER 2025-04-08 10:29 | Outpatient (AMB) | payer SELFPAY ==
--- NOTE | 2025-04-08 10:34 | MHC.OFFVIS ---
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 Prospecting Surveyor Required: No Information Interpreted: clinical only (Irene) Accompanied by: Self / Same As Patient Allergies ibuprofen (From Motrin) Allergy (Unknown, Verified 04/08/25 10:40) Hives, swelling Medication List - Last Reconciled 04/08/25 by Violetta Hurt LPN acetaminophen (Pain Relief Extra Strength (acetaminophen)) 1,000 mg PO Q8H PRN apixaban (Eliquis DVT-PE Treat 30D Start) 5 mg PO BID aripiprazole (Abilify) 2 mg PO BEDTIME oseltamivir 75 mg PO BID Is last menstrual period known: Yes Last menstrual period: 04/20/25 Post menopausal: No Patient : No Followed by:: Violetta Hurt LPN Do you need a note to return to daycare/school/sports/work: No HPI Comments Details: Patient is a premenopausal woman presenting for annual examination. 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 Regular monthly menses. Currently is sexually active. She denies vaginal itching or irritation. STI screening offered; she accepts. She tries to eat healthy and to loose weight, and stays active with exercise-walks. Denies family history of ovarian or colon cancer. FH breast cancer. Last pap smear 2020, negative. Mammogram: Pending read. [facility] Medical History (Updated 04/08/25 @ 12:00 by Sheyla Mendoza CNM) Acute vaginitis Vaginal itching Malpositioned intrauterine device (IUD) Callus of foot CPAP (continuous positive airway pressure) dependence Morbid obesity with BMI of 45.0-49.9, adult DVT (deep venous thrombosis) Hx of blood clots Hx of herpes simplex infection Hx of insomnia History of major depression Hx of anxiety disorder Surgical History Hx of appendectomy Hx of tubal ligation Family History Maternal Grandmother History of breast cancer Maternal Aunt History of breast cancer Social History Household Members: Children Housing: Apartment Are you a primary primary care provider to a significant other at home: No Do you presently have visiting nurse or other home services: No Alcohol intake: current Alcohol intake frequency: holidays/special occasions only Patient Tobacco Use Status: Current someday Tobacco user service: No Current occupational status: employed Female Reproductive History Menstrual Age of Menarche: 13 Date of last menstrual period: 04/20/25 control method: permanent sterilization Total pregnancies: 5 Number of Living Children: 3 Ab spontaneous: 2 Date of last pap smear: 10/13/20 Date of Mammogram: 04/02/25 Review of Systems Const All systems reviewed & are unremarkable except as noted in HPI and below Reports as per HPI Eyes Reports no additional complaints ENT Reports no additional complaints Card Reports no additional complaints Resp Reports no additional complaints GI Reports as per HPI and Reports no additional complaints Reports as per HPI Musc Reports no additional complaints Skin/Breast Reports as per HPI Neuro Reports no additional complaints Psych Reports no additional complaints Endo Reports no additional complaints Thang/Lymph Reports no additional complaints Aller/Immun Reports no additional complaints Physical Exam Vital Signs: Last Vital Signs BP 124/72 04/08/25 10:36 BMI result Body Mass Index 49.4 Const General: cooperative, healthy appearing, no acute distress, well developed and alert Orientation/consciousness: patient oriented x3 HEENT Head: Yes normal to inspection Eyes General: appearance normal, both eyes and all related structures Neck Neck: Yes normal visual inspection Thyroid: Thyroid normal Chest Other: Large pendulous Chest palpation & inspection: normal inspection of the chest and other (no puckering, dimpling, peau de orange, retraction, discharge, masses) Breast/axilla inspection: normal inspection of the breasts Breast/axilla palpation: normal palpation of the breasts Resp Effort & Inspection: normal respiratory effort GI Inspection: Yes normal to inspection and Yes obesity Palpation (GI): Soft to palpation Rectal Exam - Female: deferred General: Yes bladder normal to palpation External Female Exam: normal external appearance and normal appearance of the urethra Speculum Exam - Vagina: normal appearance of the vagina, normal palpation and normal vaginal discharge Speculum Exam - Cervix: normal appearance of the cervix and normal palpation Bimanual exam- vagina & uterus: normal bimanual exam, normal palpation, uterine size normal, bladder normal to palpation, normal palpation and non-tender Bimanual Exam- Adnexa, other: no masses Skin General skin exam: no rashes or lesions noted Rashes: no rashes Neuro General: patient oriented x3 Cognition (Neuro): normal cognition Extrem General: Yes normal to inspection Psych Attitude: cooperative Thought process: Normal thought process present Assessment & Plan Assessment & Plan (1) Encounter for annual routine gynecological examination: Code(s): Z01.419 - Encounter for gynecological examination (general) (routine) without abnormal findings Category: Medical Plan Discussed: Current recommendations for pap smears per ASCCP guidelines. Breast awareness and periodic breast exams. Mammogram yearly. Maintain a healthy lifestyle including a well balanced diet and routine exercise. Safe sex condoms always if indicated. Patient verbalizes understanding and agrees to the plan of care. She was given opportunity to ask questions and all questions were answered to the best of my ability. 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 This note is constructed using voice recognition software. While every effort has been made to ensure accuracy, community resource consultant errors may have been included. Orders: Orders Bacterial Vaginosis Panel Today Z01.419 - Encounter for gynecological examination (general) (routine) without abnormal findings HIV Ab/Ag Today Z20.2 - Contact with and (suspected) exposure to infections with a predominantly sexual mode of transmission Syphilis Screen Today Z20.2 - Contact with and (suspected) exposure to infections with a predominantly sexual mode of transmission CT NG by PCR Vag/Cerv Today Z01.419 - Encounter for gynecological examination (general) (routine) without abnormal findings Medications: New valacyclovir (Valtrex) Take with onset of symptoms for 3 days, repeat prn 500 mg PO BID PRN 30 tabs 1RF episodic use 3 days Coding Level of Care Code Est Pt Prev Care 40-64y(24275) Diagnoses Encounter for annual routine gynecological examination Z01.419
[2025-04-08 10:36] VITALS: BP 124/72; BMI 49.4
--- OUTSIDE RECORDS SUMMARY | 2025-04-08 11:14 | XMS_ITS | Clinical Summary ---
Author Organization [facility] Address [address] [place] [phone] Phone Care Team Providers Care Cnc Field Service Engineer Name Role Phone Unavailable Primary Care Provider Unavailabl e Social History Tobacco Use Types Packs/Day Years Used Date Smoking Tobacco: Never Assessed Comments Unknown Sex and Gender Information Value Date Recorded Sex Assigned at Not on file Legal Sex Female 4:01 PM EDT Gender Identity Not on file Sexual Orientation Not on file Plan of Treatment Health Maintenance Due Date Last Done Comments MMR Vaccines (1 of 1 - Stand rima series) 12/19/1983 Varicella Vaccines (1 of 2 - 13+ 2-dose series) 12/19/1995 DTaP,Tdap,and Td Vaccines (1 - Tdap) 2000 Hepatitis B Vaccines (1 of 3 - 19+ 3-dose series) 2001 COVID-19 Vaccine ( - 2023-2 5 season) 2024 Influenza Vaccines (#1) 2025 HIB Vaccines Aged Out No longer eligi [...] on patient's age to complete this topic Men B Vaccine Aged Out No longer elig ible based on patient's age to complete this topic Meningococcal Vaccine Aged Out No abundio kenneth eligible based on patient's age to complete this topic Pneumococcal Vaccine Aged Out No long er eligible based on patient's age to complete this topic
--- OUTSIDE RECORDS SUMMARY | 2025-04-08 11:14 | XMS_ITS | Clinical Summary ---
Author Organization [employer] Address [address] [place] [address] Care Team Providers Care Manager Line Name Role Phone Name, Artie PEREZ Primary Care Provider [phone] Allergies Active Allergy Reactions Criticality Noted Date Comments Ibuprofen Hives 03/31/2009 Other reaction(s): Hives/Urticaria Medications * This document contains information received from the source organization and may not represent a complete record from that organization. apixaban (Eliquis) 5 MG tablet Take 1 tablet (5 mg) by mouth 2 times daily. 60 tablet 11 5 Active mometasone (Elocon) 0.1 % ointment Apply topically Once per day. 45 g 2 5 03/05/20 26 Active buPROPion SR (Wellbutrin SR) 150 MG 12 hr tabletIndication s:Bipolar affective disorder, remission status unspecified (CMS/HCC) Take 1 tablet by mouth x 3 days THEN one tablet by mouth twice daily. Do not crush, chew, or split. 60 tablet 2 5 Active ARIPiprazole (Abilify) 10 MG tabletIndication s:Bipolar affective disorder, remission status unspecified (CMS/HCC) TAKE 1 TABLET BY MOUTH EVERY DAY FOR MOOD STABILITY 30 tablet 5 Active Acetaminophen 500 MG capsuleIndicatio ns:Sprain of costal cartilage, initial encounter Take 1 capsule (500 mg) by mouth every 8 (eight) hours if needed for moderate pain or fever. 30 capsule 5 04/16/20 25 Active Active Problems Problem Noted Date Diagnosed Date Bipolar disorder 04/05/2025 SANNA (generalized anxiety disorder) 02/13/2024 History of [...] and Suicidal. Fanny has been in a penitentiary unit since 2019, apartment is not up to health code. She has been working with [employer] since 2019 without any success. Living in penitentiary with her 16 y/o son. During [facility] [...] the context of Ptn facing eviction from penitentiary unit, suicidal attempt last week, lack of support, stress relationship with family and multiple stressful situations experienced in the penitentiary. PLAN: (check all that apply) Behavioral Health Integration Plan Internal Follow up with [facility] Patient Self Plan Patient to utilize skills provided in intervention , Patient to reach out to [facility] team as needed, Comply with medication , and Patient to reach out to [facility] as needed Rectal bleeding 11/15/2014 DJD (degenerative joint disease) of knee 015 BARTOLOME (obstructive sleep apnea) 04/13/2014 Severe obesity 01/18/2014 Tension headache 06/29/2010 Elevated rheumatoid factor 06/05/2009 Encounters Date Type Department Care Team Description 04/05/2025 11:15 AM EDT Office Visit [facility] [address] [place] [phone] Name, MD Artie Bipolar affective disorder, remission status unspecified (CMS/HCC) (Primary Dx); BARTOLOME (obstructive sleep apnea); Transaminitis 04/05/2025 Travel 03/17/2025 9:00 AM EDT Office Visit [facility] [address] [place] [phone] Adrianna Smart MD Sprain of costal cartilage, initial encounter (Primary Dx); Left leg pain 03/05/2025 9:30 AM EDT Office Visit [facility] [address] [place] [phone] NameArtie MD Pulmonary embolism, unspecified chronicity, unspecified pulmonary [...] of breast 03/05/2025 Travel 03/04/[address] [facility] [address] [place] [address] Artie Zelaya MD CHART PREP 02/25/[address] [facility] [address] [place] [address] Artie Zelaya MD Pre-visit Planning (SDOH negative, Tobacco screening positive.) 02/15/[address] [facility] [address] [place] [address] Artie Zelaya MD Nurse Triage from Last [...] Sign Reading Time Taken Comments Blood Pressure 115/74 04/05/2025 11:18 AM EDT Pulse 88 04/05/2025 11:18 AM EDT Temperature 35.9 C (96.6 F) 04/05/2025 11:18 AM EDT Respiratory Rate 18 04/05/2025 11:18 AM EDT Oxygen Saturation 98% 04/05/2025 11:18 AM EDT Inhaled Oxygen Concentration - - Weight 126 kg (278 lb 3.2 oz) 04/05/2025 11:18 A M EDT Height 160 cm (5' 3 ) 04/05/2025 11:18 AM EDT Body Mass Index 49.28 04/05/2025 11:18 AM EDT Plan of Treatment Health Maintenance Due Date [...] A1C 03/06/2026 025, 09/13/2022, 03/30/2022 Tobacco Screening 04/05/2026 04/05/2025 Lipid Panel 03/06/2030 03/06/2025, 12/0 05/2022, 03/30/2022 [...] cor pulmonale present (CMS/HCC) Morbid obesity (CMS/HCC) HM MAMMOGRAPHY Routine 04/15/2023 ZZZ HISTORICAL HEPATITIS C ANTIBODY Routine 08/02/2022 9:54 AM EDT PAP/HPV Routine 10/12/2020 from Last 3 Months or Most Recently Relevant to Health Maintenance Results * (ABNORMAL) CBC auto differential (03/06/2025 8:09 AM EDT) White Blood Count 6.4 4.8 - 10.8 X10*3/uL [facility] Red Blood Count 4.70 4.20 - 5.50 X10*6/uL [facility] Hemoglobin 13.8 12.0 - 16.0 g/dl [facility] Hematocrit 40.5 37.0 - 47.0 % [facility] Mean Corpuscular Volume 86.2 80.0 - 98.0 fL [facility] Mean Corpuscular Hemoglobin 29.4 27.0 - 33.0 pg [facility] Mean Corpuscular HGB Conc 34.1 31.0 - 35.0 g/dl [facility] Red Cell Distribution Width 12.3 11.0 - 16.0 % [facility] Platelet Count 326 160 - 400 X10*3/uL [facility] Mean Platelet Volume 8.4(L) 9.4 - 12.3 fL [facility] Neutrophils Percent Auto 47.2 45 - 73 % [facility] Imm Gran Pct Auto 0.5(H) 0.0 - 0.4 % [facility] Lymphocytes Percent Auto 37.8 20 - 40 % [facility] Monocytes Percent Auto 12.0(H) 2 - 11 % [facility] Eosinophils Percent Auto 1.9 0 - 4 % [facility] Basophils Percent Auto 0.6 0 - 2 % [facility] NRBC Pct Auto 0.0 0.0 - 0.2 /100WBC [facility] Neutrophils Absolute Auto 3.0 2.0 - 8.3 x10*3/uL [facility] Imm Gran Abs Auto 0.03 0.00 - 0.03 X10*3/uL [facility] Lymphocytes Absolute Auto 2.4 1.2 - 4.9 X10*3/uL [facility] Monocytes Absolute Auto 0.8 0.1 - 1.2 X10*3/uL [facility] Eosinophils Absolute Auto 0.1 0.0 - 0.4 X10*3/uL [facility] Basophils Absolute Auto 0.0 0.0 - 0.2 X10*3/uL [facility] NRBC Abs Auto 0.000 0.0 - 0.012 X10*3/uL [facility] Blood Venous blood specimen / Unknown 03/06/2025 8:09 AM EDT 03/06/2025 8:09 AM EDT us Artie Zelaya MD LAB BLOOD ORDERABLES Final Resul t Performing Organization Address [facility] Co de Phone Number [facility] [address] [place] [phone] * Hemoglobin A1c (03/06/2025 8:09 AM EDT) Hemoglobin A1c 5.7 <6.0 % [facility] Comment:Hemoglobin A1C Refer ence Range Adults: 4.8 - 6.0 % Non diabetic: < 6.0 % Goal: < 7.0 %Additional Action Suggested: > 8.0 %Note: Hemoglobin A1c results are invalid for patients with abnormal amounts of HbF. Blood transfusions may impact the HbA1c concentration in the patient sample. Estimated Average Glucose 117 mg/dL [facility] Comment:eAG = Estimated ave rage glucose which is %A1C expressed asaverage glucose, using the formula of the D6B-IkljxjcXccpaqa Glucose study (ADAG), Diabetes Care, Vol.31,#8,May. 2007 Blood Venous blood specimen / Unknown 03/06/2025 8:09 AM EDT 03/06/2025 8:09 AM EDT us Artie Zelaya MD LAB BLOOD ORDERABLES Final Resul t Performing Organization Address [facility] Co de Phone Number [facility] [address] [place] [phone] * (ABNORMAL) Lipid Panel, Standard (03/06/2025 8:09 AM EDT) Triglycerides 65 <150 mg/dL [facility] Comment:Desirable Triglyceri de: less than 150 mg/dLBorderline High Triglyceride 150-199 mg/dLHigh Triglyceride: 200-499 mg/dLVery High Triglyceride: greater than or equal to 5OO mg/dL Cholesterol 147 <200 mg/dL [facility] Comment:Desirable Cholestero l: less than 200 mg/dLBorderline High Cholesterol: 200-239 mg/dLHigh Cholesterol: greater than 239 mg/dL LDL Cholesterol Calculated 101(H) <100 mg/dL [facility] Comment:Desirable LDL: less than 100 mg/dLNear Optimal/Above Optimal LDL: 110- 129 mg/dLBorderline High LDL: 130-159 mg/dLHigh LDL: 160-189 mg/dLVery High LDL: greater than or equal to 190 mg/dL HDL Cholesterol 33(L) >40 mg/dL [facility] Comment:Desirable HDL: great er than 40 mg/dL Note: This HDL assay may give artificially low results in patients with liver disease. Blood Venous blood specimen / Unknown 03/06/2025 8:09 AM EDT 03/06/2025 8:09 AM EDT us Artie Zelaya MD LAB BLOOD ORDERABLES Final Resul t [facility] [address] [place] [phone] * (ABNORMAL) Comprehensive Metabolic Panel (03/06/2025 8:09 AM EDT) Sodium 139 135 - 145 mmol/L [facility] Potassium 4.1 3.3 - 5.1 mmol/L [facility] Chloride 107 96 - 108 mmol/L [facility] Carbon Dioxide 25 22 - 29 mmol/L [facility] Anion Gap 11(L) 12 - 20 [facility] Urea Nitrogen (BUN) 8(L) 9 - 16 mg/dL [facility] Creatinine, Serum 0.66 0.5 - 1.4 mg/dL [facility] Estimated Glomerular Filt Rate >60 [facility] Comment:Chronic Kidney Disea se: Estimated GFR < 60 mL/min/[id number] Kidney Disease: Estimated GFR < 15 mL/min/1.73m2 Glucose 102 60 - 115 mg/dL [facility] Calcium 9.1 8.4 - 10.2 mg/dL [facility] Bilirubin, Total 0.5 0.0 - 1.0 mg/dL [facility] Aspartate Amino Transferase 36(H) 5 - 31 U/L [facility] Alanine Aminotransferase 51(H) 0 - 31 U/L [facility] Total Protein 6.8 6.5 - 8.0 g/dL [facility] Albumin Level 3.8 3.5 - 5.0 g/dL [facility] Alkaline Phosphatase 44 39 - 117 U/L [facility] Blood Venous blood specimen / Unknown 03/06/2025 8:09 AM EDT 03/06/2025 8:09 AM EDT Result [facility] Artie Zelaya MD LAB BLOOD ORDERABLES Final Resul t [facility] [address] [place] [phone] * Mammography (04/15/2023) Pathologist [facility] Mammogram BIRADS 1 Normal, Abnormal, BIRADS 1 , BIRADS 2 Anatomical Region Laterality Modality Other Result [facility] Sheyla Mendoza [facility] Final Result * Hepatitis C Antibody (08/02/2022 9:54 AM EDT) Pathologist [facility] Hepatitis C Antibody Nonreactive Nonreactive [facility] Comment: Antibodies to HCV not [...] of detection of this assay. [employer] Director HIV Ag/Ab Combo assay result and supplemental assay results should be interpreted in conjunction with the patient's clinical presentation, history and other laboratory results. If the results are inconsistent with clinical evidence, additional testing is suggested to confirm the result. 08/02/2022 9:54 AM EDT Result [facility] Sheyla Valleoney HISTORICAL/NON ORDERABLE LABS Fi nal Result CONVERTED LEGACY LABS * HM PAP/HPV (10/12/2020) Pap Smear 1. NILM 1. NILM HPV Not Detected Undetected, Indeterminat e, Quantitative , Not Detected Sheyla Mendoza HEALTH MAINTENANCE Final Result from Last 3 Months or Most Recently Relevant to Health Maintenance Insurance [facility] [id number] , [address] [place] [address] * Guarantor: Fanny Armstrong Account Type Relation to Patient Date of Phone Billing Address Personal/Family Self [address] [place] [address] * Guarantor: Fanny Armstrong Account Type Relation to Patient Date of Phone Billing Address Personal/Family Self [address] [place] [address] * Guarantor: Fanny Armstrong Account Type Relation to Patient Date of Phone Billing Address Personal/Family Self [address] [place] [address] Care Teams Manager Line Relationship Specialty Start Date End Date Name, MD Artie [address] [place] [phone] PCP - General Family Medicine 01/11/16
== END 2025-04-08 11:22 | disposition home or self-care (01) ==
LOC: HO.HWS 10:30
PROVIDERS: PCP Internal Medicine Geriatric Medicine; Visit Provider Advanced Practice Midwife
DX: Z01.419 Encounter for gynecological examination (general) (routine) without abnormal findings (principal)
CPT/HCPCS: 99396; 99459

== ENCOUNTER 2025-04-08 11:24 | Outpatient (REF) | payer OTHER, SELFPAY ==
[2025-04-08 13:29] LABS: HIV Num 1 0.04 S/CO (0.00-0.99)
[2025-04-08 13:31] LABS: Syphilis Screen Nonreactive (Nonreactive)
[2025-04-08 20:17] LABS: Bacterial Vaginosis PCR NEGATIVE (Negative); Candida Group PCR NOT DETECTED (Not Detect); Candida glab krusei PCR NOT DETECTED (Not Detect); Trichomonas vaginalis PCR NOT DETECTED (Not Detect)
[2025-04-08 21:37] LABS: CT PCR NOT DETECTED (Not Detect.); NG PCR NOT DETECTED (Not Detect.)
== END 2025-04-08 11:25 | disposition home or self-care (01) ==
LOC: HO.LAB 11:24
PROVIDERS: PCP Internal Medicine Geriatric Medicine; Visit Provider Advanced Practice Midwife
DX: Z01.419 Encounter for gynecological examination (general) (routine) without abnormal findings (principal); Z20.2 Contact with and (suspected) exposure to infections with a predominantly sexual mode of transmission
CPT/HCPCS: 36415; 81515; 86780; 87389; 87491; 87591

== ENCOUNTER 2025-05-28 09:31 | Outpatient (REF) | payer OTHER, SELFPAY ==
--- NOTE | ~2025-05-28 | US_ITS ---
EXAMINATION: US ABDOMEN LIMITED WITH LIVER ELASTOGRAPHY CLINICAL INFORMATION: Transaminitis, fatty liver. COMPARISON: CT abdomen and pelvis 01/12/2021. Ultrasound abdomen with elastography 12/05/2016. TECHNIQUE: Real-time imaging of the abdominal viscera. Noninvasive ultrasound liver fibrosis assessment is performed using Leo ElastPQ point quantification shear wave elastography (2D-SWE) with a C5-2 MHz transducer. Multiple elastography samples are obtained. FINDINGS: PANCREAS: The visualized pancreatic head and body are normal in appearance. The remainder of the pancreas is obscured from visualization by the overlying bowel gas. LIVER: The liver demonstrates normal size, contour and demonstrates diffusely increased echogenicity. No suspicious focal lesion or intrahepatic biliary duct dilatation. There is an echogenic oval 0.8 x 0.9 x 0.9 cm lesion most likely a hemangioma. This was present in 2016. The right lobe measures 16.5 cm in length. The left lobe measures 12.0 cm in length. Portal flow is towards the liver (hepatopetal). Shear wave liver elastography median stiffness is 1.59 m/s (reference: normal median stiffness is 1.3 m/s or less). IQR/median stiffness to assess sampling precision is 0.11 (reference: good quality data set is IQR/median stiffness of 0.15 or less). GALLBLADDER: The gallbladder is physiologically distended without evidence of stones, sludge, polyps, wall thickening or pericholecystic fluid. There is probable adenomyomatosis of the gallbladder wall. COMMON BILE DUCT: Normal in caliber measuring 0.4 cm in diameter. RIGHT KIDNEY: No hydronephrosis. No renal calculi or focal parenchymal lesions. The kidney measures 11.3 cm in maximum dimension. There is minimal pelvic fullness, nonspecific. FREE FLUID: None. US/US abdomen sears w elastography IMPRESSION: 1. Mild diffusely increased hepatic echogenicity, most likely on the basis of steatosis. No suspicious focal lesion. Stable 0.9 cm hyperechoic right hepatic lobe hemangioma. 2. Liver elastography: In the absence of other known clinical signs, measurements rule out compensated advanced chronic liver disease. If there are known clinical signs, further testing may be needed for confirmation. 3. Adenomyomatosis of the gallbladder wall. Gallbladder otherwise normal. 4. No biliary abnormality. REFERENCE: Society of Radiologists in Ultrasound Liver Stiffness Thresholds (2019): LIVER STIFFNESS THRESHOLDS: *Liver Stiffness equal or less than 1.3 m/s: High probability of being normal. *Liver Stiffness less than 1.7 m/s: In the absence of other known clinical signs, rules out compensated advanced chronic liver disease. *Liver Stiffness 1.7-2.1 m/s: Suggestive of compensated advanced chronic liver disease but need further test for confirmation. *Liver Stiffness over 2.1 m/s: Rules in compensated advanced chronic liver disease. *Liver Stiffness over 2.4 m/s: Suggestive of clinically significant portal hypertension. QUALITY OF DATA SET: *IQR/Median value equal or less than 0.15 implies a quality data set. *IQR/Median value over 0.15 implies a poor quality data set. SIGNIFICANT CHANGE FROM PRIOR EXAM: Significant change if liver stiffness measurement is 10% or greater from prior exam. OTHER CONSIDERATIONS: The stage of liver fibrosis may be overestimated in the setting of acute hepatitis, liver inflammation, elevated liver function tests, hepatic vascular congestion, obstructive cholestasis, non-fasting state, and infiltrative diseases such as amyloidosis and lymphoma. In some patients with NAFLD, the liver stiffness thresholds for compensated advanced chronic liver disease may be lower. In causes other than viral hepatitis and NAFLD, liver stiffness thresholds are not well established. Electronically signed by: Farooq Conner MD 05/28/2025 12:18 PM EDT
--- OUTSIDE RECORDS SUMMARY | 2025-05-28 09:34 | XMS_ITS | Clinical Summary ---
Author Organization [facility] Address [address] [place] [phone] Phone Care Team Providers Care Publication Distributor Name Role Phone Unavailable Primary Care Provider [...] of 3 - 19+ 3-dose series) 2001 HPV Vaccines (1 - 3-dose SCD M series) 2009 COVID-19 Vaccine (2023-2 5 season) 2024 Influenza Vaccines (#1) 2025 [...]
--- OUTSIDE RECORDS SUMMARY | 2025-05-28 09:35 | XMS_ITS | Clinical Summary ---
Author Organization [facility] Address [address] [place] [address] Care Team Providers Care Brass Instrument Repair Technician Name Role Phone Name, Artie PEREZ Primary Care Provider [phone] Surgical History Surgery Date Site/Laterality Comments APPENDECTOMY age 10 PROCEDURE: HISTORICAL APPENDECTOMY TUBAL LIGATION 2007 PROCEDURE: HISTORICAL TUBAL LIGATION Medical History Medical History Date Comments Bipolar affective disorder ( CMS/HCC V24, CMS/HCC V28) 07/14/2009 DX:Bipolar affective disorde r ([facility]) Elevated rheumatoid factor 06/05/2009 DX:El evated rheumatoid factor Depression 03/31/2009 DX:Depression Tension headache 06/29/2010 DX:Tension head ache Family History Medical History Relation Name Comments Arthritis Maternal Grandmother diabete s, high cholesterol, HTN, heart problems mini stroke Arthritis Mother Other: Other Sister 1 asthma Relation Name Status Comments Father Alive Maternal Grandmother Mother Alive Sister 1 Sister 2 Alive Son 1 Alive Son 2 Alive Son 3 Alive Social History Tobacco Use Types Packs/Day Years Used Date Smoking Tobacco: Former Smokeless Tobacco: Never Alcohol Use Standard Drinks/Week Comments Yes 0 (1 standard drink = 0.6 oz pur e alcohol) Comments Unknown Sex and Gender Information Value Date Recorded Sex Assigned at Not on file Legal Sex Female 2:11 PM EST Gender Identity Not on file Sexual Orientation Not on file Obstetrics History Plan of Treatment Health Maintenance Due Date Last Done Comments Breast Cancer Screening 1982 Hepatitis B Vaccines (1 of 3 - 19+ 3-dose series) 2001 Cervical Cancer Screening: P ap Smear 12/19/2003 DTaP,Tdap,and Td Vaccines (2 - Td or Tdap) 12/07/2019 12/06/2009 Cholesterol Screening (Lipid Panel) 09/05/2022 HIV Screening 09/05/2022 Hepatitis C Screening 09/05/2022 Social Influencers of Health Screening 09/05/2022 COVID-19 Vaccine (1 - 2023-2 5 season) 2024 Depression Screening 10/07/2024 Influenza Vaccine (#1) 2025 5, 10/11/2014 HIB Vaccines Aged Out No longer eligi [...] on patient's age to complete this topic MMR Vaccines Aged Out No longer eligi ble based on patient's age to complete this topic Meningococcal ACWY Vaccine Aged Out N o longer eligible based on patient's age to complete this topic Meningococcal B Vaccine Aged Out No l onger eligible based on patient's age to complete this topic Pneumococcal Vaccine: Pediatrics (0 to 5 Years) and At-Risk Patients (6 to 49 Years) Aged Out No longer eligible b ased on patient's age to complete this topic RSV Immunization Patients Under 20 months Aged Out No longer eligible b ased on patient's age to complete this topic Varicella Vaccines Aged Out No longer eligible based on patient's age to complete this topic Care Teams Brass Instrument Repair Technician Relationship Specialty Start Date End Date Name, MD Artie [address] [place], [place] PCP - General 06/26/11
--- OUTSIDE RECORDS SUMMARY | 2025-05-28 09:35 | XMS_ITS | Clinical Summary ---
Author Organization [employer] Address [address] [place] [address] [address] [place] [address] Care Team Providers Care First Breaker Feeder Name Role Phone Name, Artie PEREZ Primary Care Provider [phone] Allergies Active Allergy Reactions Criticality Noted Date [...] FOR MOOD STABILITY 30 tablet 5 Active Active Problems Problem Noted Date Diagnosed [...] Depression, Anxiety, Self Harm, and Suicide Ideation MH services including OP Psychotherapy psychopharmacology who presents for Anxiety, Depression, and Suicidal. Fanny has been in a long term unit since 2019, apartment is not up to health code. She has been working with [facility] since 2019 without any success. Living in [...] Health Integration Plan Internal Follow up with [facility] Patient Self Plan Patient to utilize skills provided in intervention , Patient to reach out to [facility] team as needed, Comply with medication , and Patient to reach out to [facility] as needed Rectal bleeding 11/15/2014 DJD (degenerative joint disease) of knee 015 BARTOLMOE (obstructive sleep apnea) 04/13/2014 Severe obesity 01/18/2014 Tension headache 06/29/2010 Elevated rheumatoid factor 06/05/2009 Encounters Date Type Department Care Team Description 05/18/2025 Telephone [facility] [address] [place] [phone] Artie Zelaya MD Call Back Request 04/27/2025 Refill [facility] MED & PEDS [address] [place], [place] [phone] Artie Zelaya MD Bipolar affective disorder, remission status unspecified (CMS/HCC) 04/05/2025 11:15 AM EDT Office Visit [facility] [address] [place] [address] [phone] Artie Zelaya MD Bipolar affective disorder, remission status unspecified ([facility]/HCC) (Primary Dx); BARTOLOME (obstructive sleep apnea); Transaminitis 04/05/2025 Travel 03/17/2025 9:00 AM EDT Office Visit [facility] [address] [place] [address] [phone] Adrianna Smart MD Sprain of costal cartilage, initial encounter (Primary Dx); Left leg pain 03/05/2025 9:30 AM EDT Office Visit [facility] [address] [place] [address] [phone] Artie Zelaya MD Pulmonary embolism, unspecified chronicity, unspecified pulmonary embolism type, unspecified whether acute cor pulmonale present (CMS/HCC) (Primary Dx); GONSALEZ (dyspnea on exertion); Recurrent acute deep vein thrombosis (DVT) of lower extremity, unspecified laterality (CMS/HCC); Morbid obesity (CMS/HCC); Bipolar affective disorder, remission status unspecified ([facility]); Chronic bilateral low back pain, unspecified whether sciatica present; Encounter for screening mammogram for malignant neoplasm of breast 03/05/2025 Travel 03/04/2025 Telephone [facility] [address] [place] [address] Artie Zelaya MD CHART PREP 02/25/2025 Patient Outreach [facility] [address] [place], [place] [phone] NameArtie MD Pre-visit Planning (SDOH negative, Tobacco screening positive.) from Last 3 Months Immunizations Immunization Administration [...] Last Done Comments Family Planning (PISQ) 1997 HPV Vaccines (1 - 3-dose series) 1997 Hepatitis B Vaccines (1 of 3 - 19+ 3-dose series) 2001 Pneumococcal Vaccine: Pediatrics (0 to 5 Years) and At-Risk Patients (6 to 49) Years (1 of 2 - PCV) 2001 Pap Smear 10/12/2023 10/12/2020 COVID-19 Vaccine ( - 2023- season) 2024 09/03/2023, 11/25/2021, 11/15/2021, Additional history exists Influenza Vaccine (#1) 2025 , 09/03/2022, 08/09/2022, Additional history exists Depression Monitoring 09/05/2025 03/05/2025, 025 Cervical Cancer Screening 10/12/2025 HPV/Cotest 10/12/2025 10/12/2020 SDOH Screening 02/25/2026 02/25/2025 Alcohol/Substance Use Screening 03/05/2026 03/05/2025 Disability Screening 03/05/2026 03/05/2025 Diabetes: Hemoglobin A1C 03/06/2026 025, 09/13/2022, 03/30/2022 Mammogram 04/02/2026 04/02/2025, 04/15/2023 Tobacco Screening 04/05/2026 04/05/2025 Lipid Panel 03/06/2030 03/06/2025, 12/0 05/2022, 03/30/2022 DTaP/Tdap/Td Vaccines (3 - Td or Tdap) 06/12/2032 06/12/2022, 12/06/2009 Zoster Vaccines (1 of 2) 2032 RSV Patients and Patients Aged 60 years or older (1 - 1-dose 75+ series) 2057 Hepatitis C Screening Completed 08/02/2022, 022 HIV Screening Completed 04/08/2025, 07/08, 08/02/2022 HIB Vaccines Aged Out No longer eligi [...] Procedure Name Priority Date/Time Associated Diagnosis Comments HIV 1/2 ANTIGEN/ANTIBODY, FOURTH GENERATION W/RFL Routine 04/08/2025 11:41 AM EDT SYPHILIS SCREEN Routine 04/08/2025 11:41 AM EDT CHLAMYDIA/N. GONORRHOEAE RNA, TMA, UROGENITAL Routine 04/08/2025 10:29 AM EDT BACTERIAL VAGINOSIS PANEL Routine 04/08/2025 10:29 AM EDT BI MAMMOGRAM SCREENING TOMOSYNTHESIS BILATERAL Routine 04/02/2025 11:40 AM EDT Encounter for screening mammogram for malignant neoplasm of breast HEMOGLOBIN A1C Routine 03/06/2025 8:09 AM EDT [...] cor pulmonale present (CMS/HCC) Morbid obesity (CMS/HCC) ZZZ HISTORICAL HEPATITIS C ANTIBODY Routine 08/02/2022 9:54 AM EDT PAP/HPV Routine 10/12/2020 from Last 3 Months or Most Recently Relevant to Health Maintenance Results * Syphilis Screen (04/08/2025 11:41 AM EDT) Syphilis Screen Nonreactive Nonreactive [facility] 04/08/2025 11:4 1 AM EDT 04/08/2025 11:41 AM EDT us Generic External Data Provider LAB BLOOD ORDERAB LES Final Result Performing Organization Address [facility]/ZIP Co de Phone Number [facility] [address] [place] [phone] * HIV-1/2 Antigen and Antibodies, Fourth Generation, with Reflexes (04/08/2025 11:41 AM EDT) HIV AB/AG Nonreactive Nonreactive [facility] Comment:HIV-1 p24 Ag and/or HIV-1/HIV-2 Ab not detected.A test result that is nonreactive does not exclude thepossibility of exposure to or infection with HIV-1 and/orHIV-2. Nonreactive results in this assay for individualswith prior exposure to HIV-1 and/or HIV-2 may be due toantigen and antibody levels that are below the limit ofdetection of this assay.The [employer] HIV Ag/Ab Combo assay result andsupplemental assay results should be interpreted inconjunction with the patient's clinical presentation,history and other laboratory results. If the results areinconsistent with clinical evidence, additional testing issuggested to confirm the result. 04/08/2025 11:4 1 AM EDT 04/08/2025 11:41 AM EDT us Generic External Data Provider LAB BLOOD ORDERAB LES Final Result Performing Organization Address City/[facility]/ZIP Co de Phone Number [facility] [address] [place] [phone] * Bacterial Vaginosis (04/08/2025 10:29 AM EDT) Pathologist [facility] TRICHOMONAS VAGINALIS DETECTION BY PCR NOT DETECTED Not Detect [facility] BACTERIAL VAGINOSIS DETECTION BY PCR NEGATIVE Negative [facility] Comment:The BV organism targ ets of the Xpert Xpress MVP test can becommensal in women; Xpert Xpress MVP positive results forbacterial vaginosis should be considered in conjunction withother clinical and patient information to determine thedisease status. Organisms that are not detected by the XpertXpress MVP test have also been reported to be associatedwith BV and aerobic vaginitis.The Xpert Xpress MVP test performance has not been evaluatedin patients under the age of 14. MARY ANN GROUP DETECTION BY PCR NOT DETECTED Not Detect [facility] Mary Ann glab krusei PCR NOT DETECTED Not Detect [facility] 04/08/2025 10:2 9 AM EDT 04/08/2025 1:01 PM EDT us Generic External Data Provider LAB MICROBIOLOGY - GENERAL ORDERABLES Final Result [facility] [address] [place] [phone] [phone] * Chlamydia/N. Gonorrhoeae RNA, TMA, Urogenitial (04/08/2025 10:29 AM EDT) Pathologist [facility] CT PCR NOT DETECTED Not Detect. [facility] Comment:A not detected test result does not exclude the possibilityof infection because test results can be affected byimproper specimen collection, concurrent antibiotic therapy,or the number of organisms in the specimen which may bebelow the sensitivity of the test. As with many diagnostictests, results from the Xpert CT/NG assay should beinterpreted in conjunction with other laboratory andclinical data available to the clinician.Xpert CT/NG performance has not been evaluated in patientsless than 14 years of age. The assay should not be used forthe evaluationof suspected sexual abuse or for other medico-legalindications. Additional testing is recommended in anycircumstance when false positive or false negative resultscould lead to adverse medical, social or psychologicalconsequences. NG PCR NOT DETECTED Not Detect. [facility] Comment:A not detected test result does not exclude the possibilityof infection because test results can be affected byimproper specimen collection, concurrent antibiotic therapy,or the number of organisms in the specimen which may bebelow the sensitivity of the test. As with many diagnostictests, results from the Xpert CT/NG assay should beinterpreted in conjunction with other laboratory andclinical data available to the clinician.Xpert CT/NG performance has not been evaluated in patientsless than 14 years of age. The assay should not be used forthe evaluationof suspected sexual abuse or for other medico-legalindications. Additional testing is recommended in anycircumstance when false positive or false negative resultscould lead to adverse medical, social or psychologicalconsequences. 04/08/2025 10:2 9 AM EDT 04/08/2025 1:01 PM EDT us Generic External Data Provider LAB MICROBIOLOGY - GENERAL ORDERABLES Final Result Performing Organization Address City/State/[facility] Co de Phone Number [facility] [address] [place] [address] [phone] * BI Mammogram Screening Tomosynthesis Bilateral (04/02/2025 11:40 AM EDT) Anatomical Region Laterality Modality Breast Bilateral Mammography 04/02/2025 11:4 0 AM EDT Narrative 04/17/2025 10:52 PM EDT [facility] [address] [place] [address] Mammography Report Signed Patient: Fanny Armstrong MR#: [id number] 66 : 1980 Acct:[id number] Age/Sex: 44 / F ADM Date: 04/02/25 Loc: HO.MAMMO Attending Dr: Artie Zelaya MD Ordering Physician: Artie Zelaya MD Results: 1Negative Date of Service: 04/02/25 Follow Up: 1 Year From Orig inal Mammogram Procedure(s): MM tomosynthesis screening BI Accession Number(s): [id number] cc: Artie Zelaya MD EXAMINATION: MM SCREENING DIGITAL BREAST TOMOSYNTHESIS, BILATERAL CLINICAL INFORMATION: Screening. Asymptomatic. COMPARISON: Mammography: Comparison is made with available priors TECHNIQUE: Digital breast mammography with tomosynthesis is performed in both the craniocaudal and mediolateral oblique views along with computer-aided detection (CAD). FINDINGS: There are scattered areas of fibroglandular density (ACR BI-RADS breast composition Category b). Bilateral nipple rings. There are no significant masses, abnormal calcifications, or other abnormalities. MM/MM tomosynthesis screening BI IMPRESSION: No mammographic evidence of malignancy. ASSESSMENT: BI-RADS BI-RADS 1 - Negative RECOMMENDATION: Routine annual mammography screening. 1 year F/U This examination should not preclude the clinical evaluation of a suspicious palpable abnormality. This patient's information was entered into a reminder system with a target due date for their next mammogram. Electronically signed by: Rosalba Whyte DO 04/17/2025 10:49 PM EDT Dictated By: Rosalba Whyte DO Signed By: <Electronically signed by Rosalba Whyte DO in OV> 04/17/25 2249 DD/ 1140 TD/TT: 04/02/25 1200 Bandoleer Packer: Procedure Note Donotuseinterpreter, Image - 04/17/2025 [facility] [address] [place] [address] [place] [address] Mammography Report Signed Patient: Fanny Armstrong [facility]#: [id number] 66 : 1980Acct:[id number] Age/Sex: 44 / FADM Date: 04/02/25 Loc: JOSE.MAMMO Attending Dr: Artie Zelaya MD Ordering Physician: Artie Zelaya MDResults: 1Negative Date of Service: 04/02/25Follow Up: 1 Year From Orig inal Mammogram Procedure(s): MM tomosynthesis screening BI Accession Number(s): [id number] cc: NameArtie MD EXAMINATION: MM SCREENING DIGITAL BREAST TOMOSYNTHESIS, BILATERAL CLINICAL INFORMATION: Screening. Asymptomatic. COMPARISON: Mammography: Comparison is made with available priors TECHNIQUE: Digital breast mammography with tomosynthesis is performed in both the craniocaudal and mediolateral oblique views along with computer-aided detection (CAD). FINDINGS: There are scattered areas of fibroglandular density (ACR BI-RADS breast composition Category b). Bilateral nipple rings. There are no significant masses, abnormal calcifications, or other abnormalities. MM/MM tomosynthesis screening BI IMPRESSION: No mammographic evidence of malignancy. ASSESSMENT: BI-RADS BI-RADS 1 - Negative RECOMMENDATION: Routine annual mammography screening. 1 year F/U This examination should not preclude the clinical evaluation of a suspicious palpable abnormality. This patient's information was entered into a reminder system with a target due date for their next mammogram. Electronically signed by: Rosalba Whyte DO 04/17/2025 10:49 PM EDT Dictated By: Rosalba Whyte DO Signed By: <Electronically signed by Rosalba Whyte DO in OV> 04/17/25 2249 DD/ 1140 TD/TT: 04/02/25 1200 Bandoleer Packer: Artie Zelaya MD [facility] BI PROCEDURES Edited Result - Final * (ABNORMAL) CBC auto differential (03/06/2025 8:09 AM EDT) White Blood Count 6.4 4.8 - 10.8 X10*3/uL [facility] Red Blood Count 4.70 4.20 - 5.50 X10*6/uL [facility] Hemoglobin 13.8 12.0 - 16.0 g/dl [facility] Hematocrit 40.5 37.0 - 47.0 % [facility] Mean Corpuscular Volume 86.2 80.0 - 98.0 fL [facility] Mean Corpuscular Hemoglobin 29.4 27.0 - 33.0 pg [facility] Mean Corpuscular HGB Conc 34.1 31.0 - 35.0 g/dl [facility] Red Cell Distribution Width 12.3 11.0 - 16.0 % [facility] Platelet Count 326 160 - 400 X10*3/uL [facility] Mean Platelet Volume 8.4(L) 9.4 - 12.3 fL [facility] Neutrophils Percent Auto 47.2 45 - 73 % [facility] Imm Gran Pct Auto 0.5(H) 0.0 - 0.4 % [facility] Lymphocytes Percent Auto 37.8 20 - 40 % [facility] Monocytes Percent Auto 12.0(H) 2 - 11 % [facility] Eosinophils Percent Auto 1.9 0 - 4 % [facility] Basophils Percent Auto 0.6 0 - 2 % [facility] NRBC Pct Auto 0.0 0.0 - 0.2 /100WBC [facility] Neutrophils Absolute Auto 3.0 2.0 - 8.3 x10*3/uL [facility] Imm Gran Abs Auto 0.03 0.00 - 0.03 X10*3/uL [facility] Lymphocytes Absolute Auto 2.4 1.2 - 4.9 X10*3/uL [facility] Monocytes Absolute Auto 0.8 0.1 - 1.2 X10*3/uL [facility] Eosinophils Absolute Auto 0.1 0.0 - 0.4 X10*3/uL [facility] Basophils Absolute Auto 0.0 0.0 - 0.2 X10*3/uL [facility] NRBC Abs Auto 0.000 0.0 - 0.012 X10*3/uL [facility] Blood Venous blood specimen / Unknown 03/06/2025 8:09 AM EDT 03/06/2025 8:09 AM EDT us Artie Zelaya MD LAB BLOOD ORDERABLES Final Resul t [facility] [address] [place] [phone] * Hemoglobin A1c (03/06/2025 8:09 AM EDT) Hemoglobin A1c 5.7 <6.0 % [facility] Comment:Hemoglobin A1C Refer ence Range Adults: 4.8 - 6.0 % Non diabetic: < 6.0 % Goal: < 7.0 %Additional Action Suggested: > 8.0 %Note: Hemoglobin A1c results are invalid for patients with abnormal amounts of HbF. Blood transfusions may impact the HbA1c concentration in the patient sample. Estimated Average Glucose 117 mg/dL [facility] Comment:eAG = Estimated ave rage glucose which is %A1C expressed asaverage glucose, using the formula of the [id number] Glucose study (ADAG), Diabetes Care, Vol.31,#8,May. 2007 Blood Venous blood specimen / Unknown 03/06/2025 8:09 AM EDT 03/06/2025 8:09 AM EDT us Artie Name LAB BLOOD ORDERABLES Final Resul t [facility] [address] [place] [phone] * (ABNORMAL) Lipid Panel, Standard (03/06/2025 8:09 AM EDT) Triglycerides 65 <150 mg/dL [facility] Comment:Desirable Triglyceri de: less than 150 mg/dLBorderline High Triglyceride 150-199 mg/dLHigh Triglyceride: 200-499 mg/dLVery High Triglyceride: greater than or equal to 5OO mg/dL Cholesterol 147 <200 mg/dL [facility] Comment:Desirable Cholestero l: less than 200 mg/dLBorderline High Cholesterol: 200-239 mg/dLHigh Cholesterol: greater than 239 mg/dL LDL Cholesterol Calculated 101(H) <100 mg/dL [facility] Comment:Desirable LDL: less than 100 mg/dLNear Optimal/Above Optimal LDL: 110- 129 mg/dLBorderline High LDL: 130-159 mg/dLHigh LDL: 160-189 mg/dLVery High LDL: greater than or equal to 190 mg/dL HDL Cholesterol 33(L) >40 mg/dL [facility] Comment:Desirable HDL: great er than 40 mg/dL Note: This HDL assay may give artificially low results in patients with liver disease. Blood Venous blood specimen / Unknown 03/06/2025 8:09 AM EDT 03/06/2025 8:09 AM EDT us Artie Name MD LAB BLOOD ORDERABLES Final Resul t [facility] [address] [place] [phone] [phone] * (ABNORMAL) Comprehensive Metabolic Panel (03/06/2025 8:09 AM EDT) Sodium 139 135 - 145 mmol/L [facility] Potassium 4.1 3.3 - 5.1 mmol/L [facility] Chloride 107 96 - 108 mmol/L [facility] Carbon Dioxide 25 22 - 29 mmol/L [facility] Anion Gap 11(L) 12 - 20 [facility] Urea Nitrogen (BUN) 8(L) 9 - 16 mg/dL [facility] Creatinine, Serum 0.66 0.5 - 1.4 mg/dL [facility] Estimated Glomerular Filt Rate >60 [facility] Comment:Chronic Kidney Disea se: Estimated GFR < 60 mL/min/[id number] Kidney Disease: Estimated GFR < 15 mL/min/1.73m2 Glucose 102 60 - 115 mg/dL [facility] Calcium 9.1 8.4 - 10.2 mg/dL [facility] Bilirubin, Total 0.5 0.0 - 1.0 mg/dL [facility] Aspartate Amino Transferase 36(H) 5 - 31 U/L [facility] Alanine Aminotransferase 51(H) 0 - 31 U/L [facility] Total Protein 6.8 6.5 - 8.0 g/dL [facility] Albumin Level 3.8 3.5 - 5.0 g/dL [facility] Alkaline Phosphatase 44 39 - 117 U/L [facility] Blood Venous blood specimen / Unknown 03/06/2025 8:09 AM EDT 03/06/2025 8:09 AM EDT Artie Zelaya MD LAB BLOOD ORDERABLES Final Resul t Performing Organization Address City/[facility]/ZIP Co de Phone Number [facility] [address] [place] [phone] * Hepatitis C Antibody (08/02/2022 9:54 AM [...] of detection of this assay. The [employer] HIV Ag/Ab Combo assay result and supplemental assay results should be interpreted in conjunction with the patient's clinical presentation, history and other laboratory results. If the results are inconsistent with clinical evidence, additional testing is suggested to confirm the result. 08/02/2022 9:54 AM EDT Sheyla Mendoza HISTORICAL/NON ORDERABLE LABS Fi nal Result Performing Organization Address City/[facility]/ZIP Co de Phone Number CONVERT[facility] LEGACY LABS * HM PAP/HPV (10/12/2020) Pap Smear 1. NILM 1. NILM HPV Not Detected Undetected, Indeterminat e, Quantitative , Not Detected Sheyla Mendoza HEALTH MAINTENANCE Final Result from Last 3 Months or Most Recently Relevant to Health Maintenance Insurance [employer] [id number] , [address] [place] [address] * Guarantor: Fanny Armstrong Account Type Relation to Patient Date of Phone Billing Address Personal/Family Self [address] [place] [address] * Guarantor: Fanny Armstrong Account Type Relation to Patient Date of Phone Billing Address Personal/Family Self [address] [place] [address] * Guarantor: Fanny Armstrong Account Type Relation to Patient Date of Phone Billing Address Personal/Family Self [address] [place] [address] Care Teams First Breaker Feeder Relationship Specialty Start Date End Date Name, MD Artie [address] [place] [phone] PCP - General Family Medicine 01/11/16
== END 2025-05-28 09:32 | disposition home or self-care (01) ==
LOC: HO.US 09:31
PROVIDERS: PCP Internal Medicine Geriatric Medicine; Visit Provider Internal Medicine Geriatric Medicine
DX: R74.01 Elevation of levels of liver transaminase levels (principal)
CPT/HCPCS: 76705; 76981

== ENCOUNTER → 2025-05-28 09:32 | Outpatient (BNV) | payer OTHER, SELFPAY | PROVIDERS: PCP Internal Medicine Geriatric Medicine; Visit Provider Radiology Diagnostic Radiology | DX: R74.01 Elevation of levels of liver transaminase levels (principal) | CPT/HCPCS: 76705 ==

== ENCOUNTER 2025-06-11 08:44 | Outpatient (AMB) | payer OTHER, SELFPAY ==
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
[2025-06-11 08:48] VITALS: BP 117/55; PULSE 81; RESP 16; O2SAT 94; BMI 50.7
--- OUTSIDE RECORDS SUMMARY | 2025-06-11 09:18 | XMS_ITS | Clinical Summary ---
Author Organization [facility] Address [address] [place] [phone] Phone Care Team Providers Care Water Meter Mechanic Name Role Phone Unavailable Primary Care Provider [...] (1 - 3-dose SCD M series) 2009 Influenza Vaccines (#1) 2025 COVID-19 Vaccine ( - 2023-2 5 season) 2025 HIB Vaccines Aged Out No longer [...]
--- OUTSIDE RECORDS SUMMARY | 2025-06-11 09:18 | XMS_ITS | Encounter Summary ---
Author Organization [employer] Address [address] [facility] [address] [facility] [address] [place] [address] Care Team Providers Care Steamer Gum Candy Name Role Phone Name, Artie PEREZ Primary Care Provider [phone] Reason for Visit * Reason Onset Date Comments appt 02/1702/27/2024 Encounter Details Date Type Department Care Team ([facility] Contact Info) Description 02/27/2024 Telephone [facility] MEDICINE [address] [place], [place] [phone] Name, MD Artie [address] [place] [address] appt 02/17 Social History Tobacco Use Types Packs/Day Years Used Date Smoking Tobacco: Some Days Cigarettes Alcohol Use Standard Drinks/Week Comments Not Currently 0 (1 standard drink = 0.6 oz pur e alcohol) Depression Answer Date Recorded Patient Health Questionnaire-9 Score 24 02/13/2024 Patient Health Questionnaire-9 Score 24 02/13/2024 Last PHQ-9: Questionnaire Data Not on file 0 02/13/2024 Housing Stability Answer Date Recorded What is your housing situation today? I have jada rawls 07/24/[address] you li ve. Do you have problems with any of the following? None of the above 07/24/2023 Food Insecurity Answer Date Recorded Within the past 12 months, y ou worried that your food would run out before you got money to buy more: Sometimes True 2023 Within the past 12 months,th e food you bought just didn't last and you didn't have enough money to get more: Sometimes True 02/04/2024 Transportation Answer Date Recorded In the past 12 months, has l ack of transportation kept you from medical appts, meetings, work or from getting things needed for daily living? No 07/24/2023 Utilities Answer Date Recorded In the past 12 months, has t he electric, gas, oil or water company threatened to shut off services in your home? No 07/24/2023 Depression Answer Date Recorded Patient Health Questionnaire-2 Score 6 02/13/2024 Comments Unknown Sex and Gender Information Value Date Recorded Sex Assigned at Female 08/06/2022 10:17 AM EDT Legal Sex Female 10:17 AM EDT Gender Identity Female 08/06/2022 10:17 AM EDT Sexual Orientation Straight 08/06/2022 10 :17 AM EDT documented as of this encounter Miscellaneous Notes * Telephone Encounter - Clint Griffin - 02/27/2024 4:49 PM EDT Tc from pt requested to cancel [facility] appt for tomorrow jingle writer advised pt to call back tomorrow to reschedule. documented in this encounter Plan of Treatment Not on file documented as of this encounter Visit Diagnoses Not on filedocumented in this encounter Additional Health Concerns Assessment Noted Time PHQ-9 Depression Total Score: 24 024 9:40 AM EDT documented as of this encounter Care Teams Steamer Gum Candy Relationship Specialty Start Date End Date Name, MD Artie [address] [place] [address] PCP - General Family Medicine 01/11/16 documented as of this encounter
--- OUTSIDE RECORDS SUMMARY | 2025-06-11 09:18 | XMS_ITS | Encounter Summary ---
Author Organization [email or web address] Address [address] [place] [address] Care Team Providers Care Ibm Websphere Portal Developer Name Role Phone Name, Artie PEREZ Primary Care Provider [phone] Reason for Visit * Reason Onset Date Comments Nurse Triage 02/15/2025 Encounter Details Date Type Department Care Team ([facility] Contact Info) Description 02/15/2025 Telephone [facility]INE [address] [place], [place] [phone] Name, MD Artie [address] [place] [address] Nurse Triage Social History Tobacco Use Types Packs/Day Years [...] encounter Miscellaneous Notes * Telephone Encounter - Lucrecia Bhagat RN - 02/15/2025 9:28 AM EDT Triage call Pt reports upper abdominal pain when eating. Pt feels this is associated with gastric surgery 3 years ago. Pt reports alot of heart burn, unable to drink adequate liquids due to work and urinary frequency neg for burning with urination or other sx. Neg for fever. Pt is advised to obtaintums, maalox or mylanta OTC and take according to bottle directions. Pt is also advised to hydrate before and after work and during breaks. Pt agrees with home care advised. Pt last BM 02/13/25 normalstool no constipation. Pt agrees with disposition. Pt is scheduled to see PCP 03/05/25 for physical Pt will wait to see Provider then. No further questions offered. Protocol Used: Abdominal Pain - Upper (Adult) Protocol-Based Disposition: See in Office or Video Visit within 2 Weeks Positive Triage Question: * Abdominal pain is a chronic symptom (recurrent or ongoing AND lasting > 4 weeks) * All higher-acuity triage questions were negative Care Advice Discussed: * Reassurance and Education - Stomach Pain * Antacid Medicine * Drink Clear Fluids * Diet * Reasons To Call Back - Severe pain present over 1 hour - Constant pain present over 2 hours - Moderate pains come and go for more than 24 hours - Mild pains come and go for more than 72 hours - You become worse * Telephone Encounter - Shyam Asher - 02/15/2025 8:53 AM EDT Symptom: Abdominal Pain - Female - Not Outcome: Schedule an urgent appointment (within 4 hours) or talk to a nurse or provider soon Reason: Getting worse The caller accepted this outcome. Pt reports could be due to gastric surgery that was done about 3 years . Pain happens after she eats documented in this encounter Plan of Treatment Not on file documented as of this encounter Visit Diagnoses Not on filedocumented in this encounter Additional Health Concerns Assessment Noted Time PHQ-9 Depression Total Score: 24 024 9:40 AM EDT documented as of this encounter Care Teams Ibm Websphere Portal Developer Relationship Specialty Start Date End Date Name, MD Artie [address] [place] [address] PCP - General Family Medicine 01/11/16 documented as of this encounter
--- OUTSIDE RECORDS SUMMARY | 2025-06-11 09:18 | XMS_ITS | Clinical Summary ---
Author Organization [employer] [facility] Address [address] [place] [address] Care Team Providers Care Supervisor Offset Plate Preparation Name Role Phone Name, Artie PEREZ Primary Care Provider [phone] Surgical History Surgery Date Site/Laterality Comments APPENDECTOMY age 10 PROCEDURE: HISTORICAL APPENDECTOMY TUBAL LIGATION 2007 PROCEDURE: HISTORICAL TUBAL LIGATION Medical History Medical History Date Comments Bipolar affective disorder ( CMS/HCC V24, CMS/HCC V28) 07/14/2009 DX:Bipolar affective disorde r ([facility]) Elevated rheumatoid factor 06/05/2009 DX:El evated rheumatoid [...] 09/05/2022 Social Influencers of Health Screening 09/05/2022 Depression Screening 10/07/2024 COVID-19 Vaccine (1 - 2023-2 5 season) 2025 Influenza Vaccine (#1) 2025 5, 10/11/2014 HIB [...] age to complete this topic Care Teams Supervisor Offset Plate Preparation Relationship Specialty Start Date End Date Name, MD Artie [address] [place], [place] PCP - General 06/26/11
--- OUTSIDE RECORDS SUMMARY | 2025-06-11 09:18 | XMS_ITS | Encounter Summary ---
Author Organization [employer] Address [address] [facility] [address] [place] [address] Care Team Providers Care Duck Farmer Name Role Phone Name, Artie PEREZ Primary Care Provider [phone] Reason for Visit * Reason Onset Date Comments call back requets 06/09/2025 Encounter Details Date Type Department Care Team ([facility] Contact Info) Description 06/09/2025 Telephone [facility]ICINE [address] [place], [place] [phone] Name, MD Artie [address] [place] [address] call back requets Social History Tobacco Use Types Packs/Day Years [...] encounter Miscellaneous Notes * Telephone Encounter - Susana Doll RN - 06/10/2025 4:55 PM EDT Call returned to pt re: message below. No answer, v/m left to return call to [facility] team nurses. * Telephone Encounter - Josephine Murphy - 06/09/2025 9:13 AM EDT Tc from pt requesting call back to discuss Weight loss and knew early breastfeeding care specialist Contact pt at [phone] documented in this encounter Plan of Treatment Not on file documented as of this encounter Visit Diagnoses Not on filedocumented in this encounter Additional Health Concerns Assessment Noted Time PHQ-9 Depression Total Score: 24 025 10:56 AM EDT documented as of this encounter Care Teams Duck Farmer Relationship Specialty Start Date End Date Name, MD Artie [address] [place] [address] PCP - General Family Medicine 01/11/16 documented as of this encounter
--- OUTSIDE RECORDS SUMMARY | 2025-06-11 09:18 | XMS_ITS | Clinical Summary ---
Author Organization [employer] Address [address] [place] [address] [address] [place] [address] Care Team Providers Care Strategic Business Development Name Role Phone Name, Artie PEREZ Primary Care Provider [phone] Allergies Active Allergy Reactions Criticality Noted Date [...] and Suicidal. Fanny has been in a group home unit since 2019, apartment is not up to health code. She has been working with [employer] since 2019 without any success. Living in group home with her 16 y/o son. During IBH [...] the context of Ptn facing eviction from group home unit, suicidal attempt last week, lack of support, stress relationship with family and multiple stressful situations experienced in the group home. PLAN: (check all that apply) Behavioral Health Integration Plan Internal Follow up with [facility] Patient Self Plan Patient to utilize skills provided in intervention , Patient to reach out to [facility] team as needed, Comply with medication , and Patient to reach out to [facility] as needed Rectal bleeding 11/15/2014 DJD (degenerative joint disease) of knee 015 BARTOLOME (obstructive sleep apnea) 04/13/2014 Severe obesity 01/18/2014 Tension headache 06/29/2010 Elevated rheumatoid factor 06/05/2009 Encounters Date Type Department Care Team Description 06/09/2025 Telephone [facility] [address] [place] [phone] Artie Zelaya MD call back requets 06/08/2025 Telephone [facility] [address] [place] [phone] Liborio Iqbal [place] oct recalls 05/18/2025 Telephone [facility] [address] [place] [phone] Artie Zelaya MD Call Back Request 04/27/2025 Refill [facility] [address] [place] [address] Artie Zelaya MD Bipolar affective disorder, remission status unspecified (CMS/HCC) 04/05/2025 11:15 AM EDT Office Visit [facility] [address] [place] [phone] Artie Zelaya MD Bipolar affective disorder, remission status unspecified ([facility]/HCC) (Primary Dx); BARTOLOME (obstructive sleep apnea); Transaminitis 04/05/2025 Travel 03/17/2025 9:00 AM EDT Office Visit [facility] [address] [place] [phone] Adrianna Smart MD Sprain of costal cartilage, initial encounter (Primary Dx); Left leg pain from Last 3 Months Immunizations Immunization Administration [...] Pap Smear 10/12/2023 10/12/2020 COVID-19 Vaccine ( season) 2025 09/03/2023, 11/25/2021, 11/15/2021, Additional history exists Influenza [...] Procedure Name Priority Date/Time Associated Diagnosis Comments US ABDOMEN WILSON W ELASTOGRAPHY Routine 05/28/2025 9:52 AM EDT Transaminitis HIV 1/2 ANTIGEN/ANTIBODY, FOURTH GENERATION W/RFL Routine [...] C ANTIBODY Routine 08/02/2022 9:54 AM EDT HM PAP/HPV Routine 10/12/2020 from Last 3 Months or Most Recently Relevant to Health Maintenance Results * US ABDOMEN WILSON W ELASTOGRAPHY (05/28/2025 9:52 AM EDT) Anatomical Region Laterality Modality Abdomen Ultrasound 05/28/2025 9:52 AM EDT Narrative 05/28/2025 12:20 PM EDT [address] [address] Ultrasound Report Signed Patient: Fanny Armstrong MR#: [id number] 66 : 1980 Acct:[id number] Age/Sex: 44 / F ADM Date: 05/28/25 Loc: HO.US Attending Dr: Artie Zelaya MD Ordering Physician: Artie Zelaya MD Date of Service: 05/28/25 Procedure(s): US abdomen wilson w elastography Accession Number(s): [id number] cc: NameArtie MD EXAMINATION: US ABDOMEN LIMITED WITH LIVER ELASTOGRAPHY CLINICAL INFORMATION: Transaminitis, fatty liver. COMPARISON: CT abdomen and pelvis 01/12/2021. Ultrasound abdomen with elastography 12/05/2016. TECHNIQUE: Real-time imaging of the abdominal viscera. Noninvasive ultrasound liver fibrosis assessment is performed using Leo ElastPQ point quantification shear wave elastography (2D-SWE) with a C5-2 MHz transducer. Multiple elastography samples are obtained. FINDINGS: PANCREAS: The visualized pancreatic head and body are normal in appearance. The remainder of the pancreas is obscured from visualization by the overlying bowel gas. LIVER: The liver demonstrates normal size, contour and demonstrates diffusely increased echogenicity. No suspicious focal lesion or intrahepatic biliary duct dilatation. There is an echogenic oval 0.8 x 0.9 x 0.9 cm lesion most likely a hemangioma. This was present in 2016. The right lobe measures 16.5 cm in length. The left lobe measures 12.0 cm in length. Portal flow is towards the liver (hepatopetal). Shear wave liver elastography median stiffness is 1.59 m/s (reference: normal median stiffness is 1.3 m/s or less). IQR/median stiffness to assess sampling precision is 0.11 (reference: good quality data set is IQR/median stiffness of 0.15 or less). GALLBLADDER: The gallbladder is physiologically distended without evidence of stones, sludge, polyps, wall thickening or pericholecystic fluid. There is probable adenomyomatosis of the gallbladder wall. COMMON BILE DUCT: Normal in caliber measuring 0.4 cm in diameter. RIGHT KIDNEY: No hydronephrosis. No renal calculi or focal parenchymal lesions. The kidney measures 11.3 cm in maximum dimension. There is minimal pelvic fullness, nonspecific. FREE FLUID: None. US/US abdomen wilson w elastography IMPRESSION: 1. Mild diffusely increased hepatic echogenicity, most likely on the basis of steatosis. No suspicious focal lesion. Stable 0.9 cm hyperechoic right hepatic lobe hemangioma. 2. Liver elastography: In the absence of other known clinical signs, measurements rule out compensated advanced chronic liver disease. If there are known clinical signs, further testing may be needed for confirmation. 3. Adenomyomatosis of the gallbladder wall. Gallbladder otherwise normal. 4. No biliary abnormality. REFERENCE: Society of Radiologists in Ultrasound Liver Stiffness Thresholds (2019): LIVER STIFFNESS THRESHOLDS: *Liver Stiffness equal or less than 1.3 m/s: High probability of being normal. *Liver Stiffness less than 1.7 m/s: In the absence of other known clinical signs, rules out compensated advanced chronic liver disease. *Liver Stiffness 1.7-2.1 m/s: Suggestive of compensated advanced chronic liver disease but need further test for confirmation. *Liver Stiffness over 2.1 m/s: Rules in compensated advanced chronic liver disease. *Liver Stiffness over 2.4 m/s: Suggestive of clinically significant portal hypertension. QUALITY OF DATA SET: *IQR/Median value equal or less than 0.15 implies a quality data set. *IQR/Median value over 0.15 implies a poor quality data set. SIGNIFICANT CHANGE FROM PRIOR EXAM: Significant change if liver stiffness measurement is 10% or greater from prior exam. OTHER CONSIDERATIONS: The stage of liver fibrosis may be overestimated in the setting of acute hepatitis, liver inflammation, elevated liver function tests, hepatic vascular congestion, obstructive cholestasis, non-fasting state, and infiltrative diseases such as amyloidosis and lymphoma. In some patients with NAFLD, the liver stiffness thresholds for compensated advanced chronic liver disease may be lower. In causes other than viral hepatitis and NAFLD, liver stiffness thresholds are not well established. Electronically signed by: Farooq Conner MD 05/28/2025 12:18 PM EDT Dictated By: Farooq Conner MD Signed By: <Electronically signed by Farooq Conner MD in OV> 05/28/25 1218 DD/ 0952 TD/TT: 05/28/25 1014 Bundle Packer: Procedure Note Donotuseinterpreter, Image - 05/28/[address] [address] Ultrasound Report Signed Patient: Fanny Armstrong [facility]#: [id number] 66 : 1980Acct:[id number] Age/Sex: 44 / FADM Date: 05/28/25 Loc: HO.US Attending Dr: Artie Zelaya MD Ordering Physician: Artie Zelaya MD Date of Service: 05/28/25 Procedure(s): US abdomen wilson w elastography Accession Number(s): [id number] cc: Artie Zelaya MD EXAMINATION: US ABDOMEN LIMITED WITH LIVER ELASTOGRAPHY CLINICAL INFORMATION: Transaminitis, fatty liver. COMPARISON: CT abdomen and pelvis 01/12/2021. Ultrasound abdomen with elastography 12/05/2016. TECHNIQUE: Real-time imaging of the abdominal viscera. Noninvasive ultrasound liver fibrosis assessment is performed using Leo ElastPQ point quantification shear wave elastography (2D-SWE) with a C5-2 MHz transducer. Multiple elastography samples are obtained. FINDINGS: PANCREAS: The visualized pancreatic head and body are normal in appearance. The remainder of the pancreas is obscured from visualization by the overlying bowel gas. LIVER: The liver demonstrates normal size, contour and demonstrates diffusely increased echogenicity. No suspicious focal lesion or intrahepatic biliary duct dilatation. There is an echogenic oval 0.8 x 0.9 x 0.9 cm lesion most likely a hemangioma. This was present in 2017. The right lobe measures 16.5 cm in length. The left lobe measures 12.0 cm in length. Portal flow is towards the liver (hepatopetal). Shear wave liver elastography median stiffness is 1.59 m/s (reference: normal median stiffness is 1.3 m/s or less). IQR/median stiffness to assess sampling precision is 0.11 (reference: good quality data set is IQR/median stiffness of 0.15 or less). GALLBLADDER: The gallbladder is physiologically distended without evidence of stones, sludge, polyps, wall thickening or pericholecystic fluid. There is probable adenomyomatosis of the gallbladder wall. COMMON BILE DUCT: Normal in caliber measuring 0.4 cm in diameter. RIGHT KIDNEY: No hydronephrosis. No renal calculi or focal parenchymal lesions. The kidney measures 11.3 cm in maximum dimension. There is minimal pelvic fullness, nonspecific. FREE FLUID: None. US/US abdomen wilson w elastography IMPRESSION: 1. Mild diffusely increased hepatic echogenicity, most likely on the basis of steatosis. No suspicious focal lesion. Stable 0.9 cm hyperechoic right hepatic lobe hemangioma. 2. Liver elastography: In the absence of other known clinical signs, measurements rule out compensated advanced chronic liver disease. If there are known clinical signs, further testing may be needed for confirmation. 3. Adenomyomatosis of the gallbladder wall. Gallbladder otherwise normal. 4. No biliary abnormality. REFERENCE: Society of Radiologists in Ultrasound Liver Stiffness Thresholds (2019): LIVER STIFFNESS THRESHOLDS: *Liver Stiffness equal or less than 1.3 m/s: High probability of being normal. *Liver Stiffness less than 1.7 m/s: In the absence of other known clinical signs, rules out compensated advanced chronic liver disease. *Liver Stiffness 1.7-2.1 m/s: Suggestive of compensated advanced chronic liver disease but need further test for confirmation. *Liver Stiffness over 2.1 m/s: Rules in compensated advanced chronic liver disease. *Liver Stiffness over 2.4 m/s: Suggestive of clinically significant portal hypertension. QUALITY OF DATA SET: *IQR/Median value equal or less than 0.15 implies a quality data set. *IQR/Median value over 0.15 implies a poor quality data set. SIGNIFICANT CHANGE FROM PRIOR EXAM: Significant change if liver stiffness measurement is 10% or greater from prior exam. OTHER CONSIDERATIONS: The stage of liver fibrosis may be overestimated in the setting of acute hepatitis, liver inflammation, elevated liver function tests, hepatic vascular congestion, obstructive cholestasis, non-fasting state, and infiltrative diseases such as amyloidosis and lymphoma. In some patients with NAFLD, the liver stiffness thresholds for compensated advanced chronic liver disease may be lower. In causes other than viral hepatitis and NAFLD, liver stiffness thresholds are not well established. Electronically signed by: Farooq Conner MD 05/28/2025 12:18 PM EDT Dictated By: Farooq Conner MD Signed By: <Electronically signed by Farooq Conner MD in OV> 05/28/25 1218 DD/ 0952 TD/TT: 05/28/25 1014 Bundle Packer: us Artie CASANOVA PROCEDURES Final Result * Syphilis Screen (04/08/2025 11:41 AM EDT) Syphilis Screen Nonreactive Nonreactive [facility] 04/08/2025 11:4 1 AM EDT 04/08/2025 11:41 AM EDT Generic External Data Provider LAB BLOOD ORDERAB LES Final Result Performing Organization Address City/[facility]/ZIP Co de Phone Number [facility] [address] [place] [phone] * HIV-1/2 Antigen and Antibodies, Fourth Generation, with Reflexes (04/08/2025 11:41 AM EDT) Pathologist [facility] HIV AB/AG Nonreactive Nonreactive [facility] Comment:HIV-1 p24 Ag and/or HIV-1/HIV-2 Ab not detected.A test result that is nonreactive does not exclude thepossibility of exposure to or infection with HIV-1 and/orHIV-2. Nonreactive results in this assay for individualswith prior exposure to HIV-1 and/or HIV-2 may be due toantigen and antibody levels that are below the limit ofdetection of this assay.The [employer] HIV Ag/Ab Combo assay result andsupplemental assay results should be interpreted inconjunction with the patient's clinical presentation,history and other laboratory results. If the results areinconsistent with clinical evidence, additional testing issuggested to confirm the result. 04/08/2025 11:4 1 AM EDT 04/08/2025 11:41 AM EDT Generic External Data Provider LAB BLOOD ORDERAB LES Final Result Performing Organization Address City/[facility]/ZIP Co de Phone Number [facility] [address] [place] [address] [phone] * Bacterial Vaginosis (04/08/2025 10:29 AM EDT) Pathologist [facility] TRICHOMONAS VAGINALIS DETECTION BY PCR NOT DETECTED Not Detect [facility] BACTERIAL VAGINOSIS DETECTION BY PCR NEGATIVE Negative [facility] Comment:The BV organism targ ets [...] DETECTION BY PCR NOT DETECTED Not Detect [facility] Mary Ann glab krusei PCR NOT DETECTED Not Detect [facility] 04/08/2025 10:2 9 AM EDT 04/08/2025 1:01 PM EDT us Generic External Data Provider LAB MICROBIOLOGY - GENERAL ORDERABLES Final Result [facility] [address] [place] [phone] * Chlamydia/N. Gonorrhoeae RNA, TMA, Urogenitial (04/08/2025 10:29 AM EDT) Pathologist [facility] CT PCR NOT DETECTED Not Detect. [facility] Comment:A not detected test result [...] psychologicalconsequences. NG PCR NOT DETECTED Not Detect. [facility] Comment:A not detected test result [...] GENERAL ORDERABLES Final Result Performing Organization Address City/State/[facility] Co de Phone Number [facility] [address] [place] [phone] * BI Mammogram Screening Tomosynthesis Bilateral (04/02/2025 11:40 AM EDT) Anatomical Region Laterality Modality Breast Bilateral Mammography 04/02/2025 11:4 0 AM EDT Narrative 04/17/2025 10:52 PM EDT [facility] [address] [place] [address] Mammography Report Signed Patient: Fanny Armstrong MR#: [id number] 66 : 1980 Acct:[id number] Age/Sex: 44 / F ADM Date: 04/02/25 Loc: BELTRAN Attending Dr: Artie Zelaya MD Ordering Physician: Artie Zelaya MD Results: 1Negative Date of Service: 04/02/25 Follow Up: 1 Year From Orig inal Mammogram Procedure(s): MM tomosynthesis screening BI Accession Number(s): [id number] cc: Artie Zelaya MD EXAMINATION: MM SCREENING [...] Rosalba Whyte DO 04/17/2025 10:49 PM EDT RP Dictated By: Rosalba Whyte DO Signed By: <Electronically signed by Rosalba Whyte DO in OV> 04/17/25 2249 DD/ 1140 TD/TT: 04/02/25 1200 Bundle Packer: Procedure Note Donotuseinterpreter, Image - [facility]/17/20[facility] [address] [place], [place] [address] Mammography Report Signed Patient: Fanny Armstrong [facility]#: [id number] 66 : 1980Acct:[id number] Age/Sex: 44 / FADM Date: 04/02/25 Loc: HO.MAMMO Attending Dr: Artie Zelaya MD Ordering Physician: Artie Zelaya MDResults: 1Negative Date of Service: 04/02/25Follow Up: 1 Year From Orig inal Mammogram Procedure(s): MM tomosynthesis screening BI Accession Number(s): [id number] cc: Artie Zelaya MD EXAMINATION: MM SCREENING [...] Rosalba Whyte DO 04/17/2025 10:49 PM EDT RP Dictated By: Rosalba Whyte DO Signed By: <Electronically signed by Rosalba Whyte DO in OV> 04/17/25 2249 DD/ 1140 TD/TT: 04/02/25 1200 Bundle Packer: us Artie Zelaya MD IMG BI PROCEDURES Edited Result - Final * Hemoglobin A1c (03/06/2025 8:09 AM EDT) Hemoglobin A1c 5.7 <6.0 % [facility] Comment:Hemoglobin A1C Refer ence Range Adults: 4.8 - 6.0 % Non diabetic: < 6.0 % Goal: < 7.0 %Additional Action Suggested: > 8.0 %Note: Hemoglobin A1c results are invalid for patients with abnormal amounts of HbF. Blood transfusions may impact the HbA1c concentration in the patient sample. Estimated Average Glucose 117 mg/dL [facility] Comment:eAG = Estimated ave rage glucose which is %A1C expressed asaverage glucose, using the formula of the F2W-MkahxelQlilrfa Glucose study (ADAG), Diabetes Care, Vol.31,#8,May. 2007 Blood Venous blood specimen / Unknown 03/06/2025 8:09 AM EDT 03/06/2025 8:09 AM EDT us Artie Zelaya MD LAB BLOOD ORDERABLES Final Resul t [facility] [address] [place] [phone] * (ABNORMAL) Lipid Panel, Standard (03/06/2025 8:09 AM EDT) Triglycerides 65 <150 mg/dL [facility] Comment:Desirable Triglyceri de: less than 150 mg/dLBorderline High Triglyceride 150-199 mg/dLHigh Triglyceride: 200-499 mg/dLVery High Triglyceride: greater than or equal to 5OO mg/dL Cholesterol 147 <200 mg/dL [facility] Comment:Desirable Cholestero l: less than 200 mg/dLBorderline High Cholesterol: 200-239 mg/dLHigh Cholesterol: greater than 239 mg/dL LDL Cholesterol Calculated 101(H) <100 mg/dL [facility] Comment:Desirable LDL: less than 100 mg/dLNear Optimal/Above Optimal LDL: 110- 129 mg/dLBorderline High LDL: 130-159 mg/dLHigh LDL: 160-189 mg/dLVery High LDL: greater than or equal to 190 mg/dL HDL Cholesterol 33(L) >40 mg/dL [facility] Comment:Desirable HDL: great er than 40 mg/dL Note: This HDL assay may give artificially low results in patients with liver disease. Blood Venous blood specimen / Unknown 03/06/2025 8:09 AM EDT 03/06/2025 8:09 AM EDT us Artie Zelaya MD LAB BLOOD ORDERABLES Final Resul t Performing Organization Address [facility]/ZIP Co de Phone Number [facility] [address] [place] [phone] * Hepatitis C Antibody (08/02/2022 9:54 [...] of detection of this assay. The [employer] HIV Ag/Ab Combo assay result and supplemental assay results should be interpreted in conjunction with the patient's clinical presentation, history and other laboratory results. If the results are inconsistent with clinical evidence, additional testing is suggested to confirm the result. 08/02/2022 9:5 4 AM EDT Sheyla Mendoza HISTORICAL/NON ORDERABLE LABS Fi nal Result CONVERTED LEGACY LABS * PAP/HPV (10/12/2020) Pap Smear 1. NILM 1. NILM HPV Not Detected Undetected, Indeterminat e, Quantitative , Not Detected Sheyla Mendoza HEALTH MAINTENANCE Final Result from Last 3 Months or Most Recently Relevant to Health Maintenance Insurance [facility] * Guarantor: Fanny Armstrong Account Type Relation to Patient Date of Phone Billing Address Personal/Family Self [address] [place] [address] * Guarantor: Fanny Armstrong Account Type Relation to Patient Date of Phone Billing Address Personal/Family Self [address] [place] [address] * Guarantor: Fanny Armstrong Account Type Relation to Patient Date of Phone Billing Address Personal/Family Self [address] [place] [address] Care Teams Strategic Business Development Relationship Specialty Start Date End Date Name, MD Artie [address] [place] [address] PCP - General Family Medicine 01/11/16
--- OUTSIDE RECORDS SUMMARY | 2025-06-11 09:18 | XMS_ITS | Encounter Summary ---
Author Organization [employer] Address [address] [place] [address] Care Team Providers Care Business Unit Controller Name Role Phone Name, Artie PEREZ Primary Care Provider [phone] Reason for Visit * Reason Onset Date Comments oct recalls 06/08/2025 Encounter Details Date Type Department Care Team ([facility] Contact Info) Description 06/08/2025 Telephone [facility] [address] [place], [place] [phone] Liborio Iqbal [place] oct recalls Social History Tobacco Use Types Packs/Day Years [...] encounter Miscellaneous Notes * Telephone Encounter - Josephine Murphy - 06/09/2025 9:17 AM EDT Tc from pt retuning call. Insecticide Mixer advised there is nothing available at the moment, will forward a message to [place]. * Telephone Encounter - Liborio Iqbal [place] - 06/08/2025 1:44 PM EDT Telephone call to patient to schedule a recall appointment. No answer, Left voicemail to return call to clinic.. Recall letter sent. Visit type: Follow up Appointment notes: follow u p Month due: July With: Name Please schedule appointment above if patient returns call documented in this encounter Plan of Treatment Not on file documented as of this encounter Visit Diagnoses Not on filedocumented in this encounter Additional Health Concerns Assessment Noted Time PHQ-9 Depression Total Score: 24 025 10:56 AM EDT documented as of this encounter Care Teams Business Unit Controller Relationship Specialty Start Date End Date Name, MD Artie [address] [place] [address] PCP - General Family Medicine 01/11/16 documented as of this encounter
== END 2025-06-11 09:26 | disposition home or self-care (01) ==
LOC: HO.PMC 08:45
PROVIDERS: PCP Internal Medicine Geriatric Medicine; Referring Provider Internal Medicine Geriatric Medicine; Visit Provider Nurse Practitioner Family
DX: M54.51 Vertebrogenic low back pain (principal); M43.17 Spondylolisthesis, lumbosacral region; M47.815 Spondylosis without myelopathy or radiculopathy, thoracolumbar region; M51.369 Other intervertebral disc degeneration, lumbar region without mention of lumbar back pain or lower extremity pain; E66.01 Morbid (severe) obesity due to excess calories; Z68.43 Body mass index [BMI] 50.0-59.9, adult
CPT/HCPCS: 99204

== ENCOUNTER → 2025-06-11 08:44 | Outpatient (BNVA) | payer OTHER, SELFPAY | PROVIDERS: PCP Internal Medicine Geriatric Medicine; Referring Provider Internal Medicine Geriatric Medicine; Visit Provider Nurse Practitioner Family | DX: M54.51 Vertebrogenic low back pain (principal); M51.369 Other intervertebral disc degeneration, lumbar region without mention of lumbar back pain or lower extremity pain; M43.17 Spondylolisthesis, lumbosacral region; M47.815 Spondylosis without myelopathy or radiculopathy, thoracolumbar region; E66.01 Morbid (severe) obesity due to excess calories; Z68.43 Body mass index [BMI] 50.0-59.9, adult; F17.210 Nicotine dependence, cigarettes, uncomplicated; G47.33 Obstructive sleep apnea (adult) (pediatric); Z99.89 Dependence on other enabling machines and devices; Z13.89 Encounter for screening for other disorder ==

== ENCOUNTER 2025-08-06 08:10 | Outpatient (AMB) | payer OTHER, SELFPAY ==
--- OUTSIDE RECORDS SUMMARY | 2025-08-06 08:17 | XMS_ITS | Clinical Summary ---
Author Organization [employer] Address [address] [place] [address] 7t [place] [address] Care Team Providers Care Raise Driller Name Role Phone Name, Artie PEREZ Primary Care Provider [phone] Allergies Active Allergy Reactions Criticality Noted Date [...] 45 g 2 03/05/20 25 026 Active nicotine (Nicoderm CQ) 14 MG/24HR patch Place 1 patch on the skin 1 (one) time each day at the same time. 42 patch 06/15/20 25 Active nicotine (Nicoderm CQ) 7 MG/24HR patch Place 1 patch on the skin 1 (one) time each day at the same time. 14 patch 06/15/20 25 Active nicotine polacrilex (Commit) 2 MG lozenge Dissolve 1 lozenge (2 mg) in the mouth if needed for smoking cessation. 100 lozenge 06/15/20 25 Active SUMAtriptan (Imitrex) 50 MG tablet Take 1 tablet (50 mg) by mouth 1 (one) time if needed for migraine for up to 1 dose. May repeat dose once in 2 hours if no relief. Do not exceed 2 doses in 24 hours. 9 tablet 1 06/15/20 25 Active fluticasone (Flonase Allergy Relief) 50 MCG/ACT nasal spray Administer 1 spray into each nostril Once per day. Shake gently. Before first use, prime pump. After use, clean tip and replace cap. 16 g 12 06/15/20 026 Active Blood Pressure kit 1 each 2 times daily. 1 kit 06/15/20 25 026 Active ARIPiprazole (Abilify) 10 MG tabletIndicatio ns:Bipolar affective disorder, remission status unspecified (CMS/HCC) ([facility]) TAKE 1 TABLET BY MOUTH EVERY DAY FOR MOOD STABILITY 30 tablet 06/23/20 25 Active buPROPion SR (Wellbutrin SR) 150 MG 12 hr tabletIndicatio ns:Bipolar affective disorder, remission status unspecified (CMS/HCC) ([facility]) TAKE 1 TABLET BY MOUTH EVERY DAY FOR 3 DAYS, THEN TAKE 1 TABLET BY MOUTH TWICE DAILY. DO NOT BREAK, CRUSH, DISSOLVE OR CHEW. 60 tablet 2 07/16/20 25 Active buPROPion SR (Wellbutrin SR) 150 MG 12 hr tabletIndicatio ns:Bipolar affective disorder, remission status unspecified (CMS/HCC) ([facility]) Take 1 tablet by mouth x 3 days THEN one tablet by mouth twice daily. Do not crush, chew, or split. 60 tablet 2 03/05/20 25 025 Discontinued Active Problems Problem Noted Date Diagnosed Date Pulmonary embolism 06/15/2025 Chronic low back pain 06/15/2025 Tobacco dependence 06/15/2025 Bipolar disorder 04/05/2025 SANNA (generalized anxiety disorder) [...] recurrent major depressive disorder, without psychotic features ([facility]) 01/12/2016 Overview (02/01/2023): In hospital 04/14 Assessment & Plan (02/14/2024 9:50 AM EDT): PROGRESS NOTE: ID: Fanny is a 43 y.o. straight-identified cis-female with previous documented hx of Depression, Anxiety, Self Harm, and Suicide Ideation services including OP Psychotherapy psychopharmacology who presents for Anxiety, Depression, and Suicidal. Fanny has been in a senior living unit since 2019, apartment is not up to health code. She has been working with [employer] since 2019 without any success. Living in senior living with her 16 y/o son. During IBH [...] the context of Ptn facing eviction from senior living unit, suicidal attempt last week, lack of support, stress relationship with family and multiple stressful situations experienced in the senior living. PLAN: (check all that apply) Behavioral Health Integration Plan Internal Follow up with [facility] Patient Self Plan Patient to utilize skills provided in intervention , [facility] as [facility], Comply with medication , and Patient to reach out to [facility] as needed Rectal bleeding 11/15/2014 DJD (degenerative joint disease) of knee 015 BARTOLOME (obstructive sleep apnea) 04/13/2014 Severe obesity ([facility]) 01/18/2014 Tension headache 06/29/2010 Elevated rheumatoid factor 06/05/2009 Encounters Date Type Department Care Team Description 07/16/2025 Refill [facility] MEDICINE [address] [place] [address] Artie Zelaya MD Bipolar affective disorder, remission status unspecified ([facility]) (HCC) 06/23/2025 Telephone [facility] MEDICINE [address] [place] [phone] Artie Zelaya MD Medication Question 06/23/2025 Refill [facility] MED & PEDS [address] [place], [place] [phone] Artie Zelaya MD Bipolar affective disorder, remission status unspecified ([facility]) 06/16/2025 Telephone [facility] MEDICINE [address] [place] [phone] Artie Zelaya MD 06/15/2025 8:40 AM EDT Office Visit [facility] [address] [place] [phone] Ben Tamez MD Acute non-recurrent sinusitis, unspecified location (Primary Dx); Elevated blood pressure reading in office without diagnosis of hypertension; Tobacco dependence; Viral URI 06/15/2025 Travel 06/09/[address] [address] Artie Zelaya MD call back requets 06/08/[address] [address] Liborio Iqbal [place] oct recalls 05/18/[address] [address] Artie Zelaya MD Call Back Request from Last 3 Months Immunizations Immunization Administration [...] Sign Reading Time Taken Comments Blood Pressure 157/80 06/15/2025 8:38 AM EDT Pulse 80 06/15/2025 8:38 AM EDT Temperature 37.1 C (98.8 F) 06/15/2025 8:38 AM EDT Respiratory Rate 18 06/15/2025 8:38 AM EDT Oxygen Saturation 98% 06/15/2025 8:38 AM EDT Inhaled Oxygen Concentration - - Weight 132 kg (290 lb 9.6 oz) 06/15/2025 8:38 AM EDT Height 160 cm (5' 3 ) 04/05/2025 11:18 AM EDT Body Mass Index 51.48 04/05/2025 11:18 AM EDT Plan of Treatment [...] 03/30/2022 Mammogram 04/02/2026 04/02/2025, 04/15/2023 Tobacco Screening 06/15/2026 06/15/2025 Lipid Panel 03/06/2030 03/06/2025, 12/0 05/2022, 03/30/2022 [...] Procedure Name Priority Date/Time Associated Diagnosis Comments POCT INFLUENZA B (ID NOW RAPID MOLECULAR) Routine 06/15/2025 9:00 AM EDT Viral URI POCT INFLUENZA A (ID NOW RAPID MOLECULAR) Routine 06/15/2025 9:00 AM EDT Viral URI POCT RAPID COVID ANTIGEN Routine 06/15/2025 9:00 AM EDT Viral URI US ABDOMEN WILSON W ELASTOGRAPHY Routine 05/28/2025 9:52 AM EDT Transaminitis HIV 1/2 ANTIGEN/ANTIBODY, FOURTH GENERATION W/RFL Routine 04/08/2025 11:41 AM EDT BI MAMMOGRAM SCREENING TOMOSYNTHESIS BILATERAL [...] Recently Relevant to Health Maintenance Results * Influenza B (ID NOW Rapid Molecular) (06/15/2025 9:00 AM EDT) Influenza B Negative Negative, Indeterminate [facility] Swab 06/15/2025 9:00 AM EDT Ben Tamez MD POINT OF CARE TEST ENTER/EDIT OR DERABLES Final Result [facility] [address] [place] [phone] * Influenza A (ID NOW Rapid Molecular) (06/15/2025 9:00 AM EDT) Influenza A Negative Negative, Indeterminate [facility] Swab 06/15/2025 9:00 AM EDT us Ben Tamez MD POINT OF CARE TEST ENTER/EDIT OR DERABLES Final Result Performing Organization Address [facility] de Phone Number [facility] [address] [place] [phone] * POCT Rapid COVID Ag (06/15/2025 9:00 AM EDT) Rapid COVID Ag Negative [facility] Swab 06/15/2025 9:00 AM EDT us Ben Tamez MD POINT OF CARE TEST ENTER/EDIT OR DERABLES Final Result Performing Organization Address [facility] Number [facility] [address] [place] [phone] * US ABDOMEN WILSON W ELASTOGRAPHY (05/28/2025 9:52 AM EDT) Anatomical Region Laterality Modality Abdomen Ultrasound 05/28/2025 9:52 AM EDT Narrative 05/28/2025 12:20 PM EDT [address] [address] Ultrasound Report Signed Patient: Fanny Armstrong MR#: [id number] 66 : 1980 Acct:[id number] Age/Sex: 44 / F ADM Date: 05/28/25 Loc: HO.US Attending Dr: Artie Zelaya MD Ordering Physician: Artie Zelaya MD Date of Service: 05/28/25 Procedure(s): US abdomen wilson w elastography Accession Number(s): [id number] cc: Artie Zelaya MD EXAMINATION: US ABDOMEN [...] 05/28/25 1218 DD/ 0952 TD/TT: 05/28/25 1014 Diamond Saw Operator: Procedure Note Donotuseinterpreter, Image - 05/28/[address] [address] Ultrasound Report Signed Patient: Fanny Armstrong [facility]#: [id number] 66 : 1980Acct:[id number] Age/Sex: 44 / FADM Date: 05/28/25 Loc: HO.US Attending Dr: Artie Zelaya MD Ordering Physician: Artie Zelaya MD Date of Service: 05/28/25 Procedure(s): US abdomen wilson w elastography Accession Number(s): [id number] cc: Artie Zelaya MD EXAMINATION: US ABDOMEN [...] 05/28/25 1218 DD/ 0952 TD/TT: 05/28/25 1014 Diamond Saw Operator: us Artie Garcia PEREZ [facility] US PROCEDURES Final Result * HIV-1/2 Antigen and Antibodies, Fourth Generation, with Reflexes (04/08/2025 11:41 AM EDT) HIV AB/AG Nonreactive Nonreactive [facility] Comment:HIV-1 p24 Ag and/or HIV-1/HIV-2 Ab not detected.A test result that is nonreactive does not exclude thepossibility of exposure to or infection with HIV-1 and/orHIV-2. Nonreactive results in this assay for individualswith prior exposure to HIV-1 and/or HIV-2 may be due toantigen and antibody levels that are below the limit ofdetection of this assay.The [employer] HIV Ag/Ab Combo assay result andsupplemental assay results should be interpreted inconjunction with the patient's clinical presentation,history and other laboratory results. If the results areinconsistent with clinical evidence, additional testing issuggested to confirm the result. 04/08/2025 11:4 1 AM EDT 04/08/2025 11:41 AM EDT us Generic External Data Provider LAB BLOOD ORDERAB LES Final Result [facility] [address] [place] [phone] * BI Mammogram Screening Tomosynthesis Bilateral (04/02/2025 11:40 AM EDT) Anatomical Region Laterality Modality Breast Bilateral Mammography 04/02/2025 11:4 0 AM EDT Narrative 04/17/2025 10:52 PM EDT [address] [place] [address] Mammography Report Signed Patient: Fanny Armstrong MR#: [id number] [birth year] : 1980 Acct:[id number] Age/Sex: 44 / F ADM Date: 04/02/25 Loc: HO.MAMMO Attending Dr: Artie Zelaya MD Ordering Physician: Artie Zelaya MD Results: 1Negative Date of Service: 04/02/25 Follow Up: 1 Year From [facility] Mammogram Procedure(s): MM tomosynthesis screening BI Accession Number(s): [id number] cc: Artie Zelaya MD EXAMINATION: MM SCREENING [...] 04/17/25 2249 DD/ 1140 TD/TT: 04/02/25 1200 Diamond Saw Operator: Procedure Note Donotuseinterpreter, Image - 04/17/2025 [facility] [address] [place] [address] Mammography Report Signed Patient: Fanny Armstrong [facility]#: [id number] 66 : 1980Acct:[id number] Age/Sex: 44 / FADM Date: 04/02/25 Loc: HO.MAMMO Attending Dr: Artie Zelaya MD Ordering Physician: Artie Zelaya MDResults: 1Negative Date of Service: 04/02/25Follow Up: 1 Year From Orig ina Mammogram Procedure(s): MM tomosynthesis screening BI Accession Number(s): [id number] cc: Artie Zelaya MD EXAMINATION: MM SCREENING [...] 04/17/25 2249 DD/ 1140 TD/TT: 04/02/25 1200 Diamond Saw Operator: us Alva Name IMG BI PROCEDURES Edited Result - Final * Hemoglobin A1c (03/06/2025 8:09 AM EDT) Hemoglobin A1c 5.7 <6.0 % [facility] Comment:Hemoglobin A1C Refer ence Range Adults: 4.8 - 6.0 % Non diabetic: < 6.0 % Goal: < 7.0 %Additional Action Suggested: > 8.0 %Note: Hemoglobin A1c results are invalid for patients with abnormal amounts of HbF. Blood transfusions may impact the HbA1c concentration in the patient sample. Estimated Average Glucose 117 mg/dL [facility] Comment:eAG = Estimated ave rage glucose which is %A1C expressed asaverage glucose, using the formula of the A6C-VsqpkflHyljobu Glucose study (ADAG), Diabetes Care, Vol.31,#8,May. 2007 Blood Venous blood specimen / Unknown 03/06/2025 8:09 AM EDT 03/06/2025 8:09 AM EDT us Artie Zelaya MD LAB BLOOD ORDERABLES Final Resul t [facility] [address] [place] [phone] * (ABNORMAL) Lipid Panel, Standard (03/06/2025 8:09 AM EDT) Triglycerides 65 <150 mg/dL [facility] Comment:Desirable Triglyceri de: less than 150 mg/dLBorderline High Triglyceride 150-199 mg/dLHigh Triglyceride: 200-499 mg/dLVery High Triglyceride: greater than or equal to 5OO mg/dL Cholesterol 147 <200 mg/dL [facility] Comment:Desirable Cholestero l: less than 200 mg/dLBorderline High Cholesterol: 200-239 mg/dLHigh Cholesterol: greater than 239 mg/dL LDL Cholesterol Calculated 101(H) <100 mg/dL [facility] Comment:Desirable LDL: less than 100 mg/dLNear Optimal/Above Optimal LDL: 110- 129 mg/dLBorderline High LDL: 130-159 mg/dLHigh LDL: 160-189 mg/dLVery High LDL: greater than or equal to 190 mg/dL HDL Cholesterol 33(L) >40 mg/dL [facility] Comment:Desirable HDL: great er than 40 mg/dL Note: This HDL assay may give artificially low results in patients with liver disease. Blood Venous blood specimen / Unknown 03/06/2025 8:09 AM EDT 03/06/2025 8:09 AM EDT us Artie Zelaya MD LAB BLOOD ORDERABLES Final Resul t [facility] [address] [place] [phone] * Hepatitis C Antibody (08/02/2022 9:54 [...] of detection of this assay. The [employer] HIV Ag/Ab Combo assay result and supplemental [...] Most Recently Relevant to Health Maintenance Insurance [facility] , [address] [place] [id number] * Guarantor: Fanny Armstrong Account Type Relation to Patient Date of Phone Billing Address Personal/Family Self [address] [facility] [address] [place] [address] * Guarantor: Fanny Armstrong Account Type Relation to Patient Date of Phone Billing Address Personal/Family Self [address] [facility] [address] [place] [address] * Guarantor: Fanny Armstrong Account Type Relation to Patient Date of Phone Billing Address Personal/Family Self [address] [facility] [facility] [address] [place] [address] Care Teams Raise Driller Relationship Specialty Start Date End Date Name, MD Artie [address] [place] [phone] PCP - General Family Medicine 01/11/16
--- OUTSIDE RECORDS SUMMARY | 2025-08-06 08:17 | XMS_ITS | Clinical Summary ---
Author Organization [facility] Address [address] [place] [phone] Phone Care Team Providers Care Merchandise Support Associate Name Role Phone Unavailable Primary Care Provider [...] Vaccines (#1) 2025 COVID-19 Vaccine ( - 2024-2 6 season) 2025 HIB Vaccines Aged Out No [...]
--- OUTSIDE RECORDS SUMMARY | 2025-08-06 08:17 | XMS_ITS | Encounter Summary ---
Author Organization [employer] Address [address] [facility] 7t [place] [address] Care Team Providers Care Angle Shear Operator Name Role Phone Name, Artie PEREZ Primary Care Provider [phone] Reason for Visit * Reason Onset Date Comments appt 02/1702/27/2024 Encounter Details Date Type Department Care Team ([facility] Contact Info) Description 02/27/2024 Telephone [facility] MEDICINE [address] [place], [place] [phone] Name, MD Artie [address] [place] [address] appt 02/17 Social History Tobacco Use Types [...] EDT Tc from pt requested to cancel [facility] health appt for tomorrow senior underwriter advised pt to call back tomorrow to reschedule. documented in this encounter Plan of Treatment Not on file documented as of this encounter Visit Diagnoses Not on filedocumented in this encounter Additional Health Concerns Assessment Noted Time PHQ-9 Depression Total Score: 24 024 9:40 AM EDT documented as of this encounter Care Teams Angle Shear Operator Relationship Specialty Start Date End Date Name, MD Artie [address] [place] [address] PCP - General Family Medicine 01/11/16 documented as of this encounter
--- OUTSIDE RECORDS SUMMARY | 2025-08-06 08:17 | XMS_ITS | Encounter Summary ---
Author Organization [employer] Address [address] [place] [address] 7t [place] [address] Care Team Providers Care Coffee Sommelier Name Role Phone Name, Artie PEREZ Primary Care Provider [phone] Reason for Visit * Reason Onset Date Comments Nurse Triage 02/15/2025 Encounter Details Date Type Department Care Team ([facility] Contact Info) Description 02/15/2025 Telephone [facility] MEDICINE [address] [place], [place] [phone] Name, MD Artie [address] [place] [address] Nurse Triage Social History Tobacco Use Types [...] documented as of this encounter Care Teams Coffee Sommelier Relationship Specialty Start Date End Date Name, MD Artie [address] [place] [address] PCP - General Family Medicine 01/11/16 documented as of this encounter
--- NOTE | 2025-08-06 10:19 | MHC.OFFVISWM ---
VS Expanded 08/06/25 10:30 Height 5 ft 3.5 in Weight 290 lb 2 oz BMI 50.6 Body Fat % 50.2 Body Fat Mass 145.8 Fat Free Mass 144.4 Visceral Fat Rating 18 Body Water % 35.6 Body Water Mass 103.2 Basal Metabolic Rate/Score 2,086 Intake Visit Reasons: [employer] BMI 51.4 Allergies ibuprofen (From Motrin) Allergy (Unknown, Verified 08/06/25 10:20) Hives, swelling Medication List - Last Reconciled 08/06/25 by Parker Ortiz MD acetaminophen (Pain Relief Extra Strength (acetaminophen)) 1,000 mg PO Q8H PRN apixaban (Eliquis DVT-PE Treat 30D Start) 5 mg PO BID aripiprazole (Abilify) 2 mg PO BEDTIME lidocaine 5% leave on most painful area for up to 12 hrs topically daily; 30 days oseltamivir 75 mg PO BID valacyclovir (Valtrex) 500 mg PO BID PRN 3 days HPI HPI [employer] BMI 51.4: Details: Start time: 10.00am, End time: 10.57am ?I spent 52 minutes speaking with the patient on the phone plus an additional 5 minutes reviewing and updating records for a total of 57 minutes HPI Comments Details: Previous weight loss efforts: Wakes up: 5am, Sleeps: 1am, takes afternoon naps Breakfast: skips Lunch: 11am-12pm (crackers, or food at work) Dinner: 6pm (fast foods, or in microwave) Snacks: 8pm (banana, popcorn) Exercise: none Beverages: Coffee: one, Tea: none, Soda: Energy drinks (Monster x1/d), Juice: 2-3/wk, ETOH: none PFSH Medical History (Updated 08/06/25 @ 10:25 by Parker Ortiz MD) Bipolar 1 disorder Anxiety Depression Acute vaginitis Vaginal itching Malpositioned intrauterine device (IUD) Callus of foot CPAP (continuous positive airway pressure) dependence Morbid obesity with BMI of 45.0-49.9, adult DVT (deep venous thrombosis) Hx of blood clots Hx of herpes simplex infection Hx of insomnia History of major depression Hx of anxiety disorder Surgical History Hx of appendectomy Hx of tubal ligation Family History Maternal Grandmother History of breast cancer Maternal Aunt History of breast cancer Social History Household Members: Children Housing: Apartment Are you a primary resident care director to a significant other at home: No Do you presently have visiting nurse or other home services: No Alcohol intake: current Alcohol intake frequency: holidays/special occasions only Patient Tobacco Use Status: Current someday Tobacco user service: No Current occupational status: employed Female Reproductive History Menstrual Age of Menarche: 13 Telehealth Telehealth Telehealth Platform: Telephone Location of provider rendering services: practice address Location of patient: address on file Patient Identification confirmed using: Name, : Yes Telehealth method: voice only Patient verbally consented to treatment: Yes Patient verbally consented to billing insurance company: Yes Patient informed of any privacy concerns related to visit: Yes Minutes spent on Phone/Video with Pt.: 57 Assessment & Plan Assessment & Plan (1) Morbid obesity with BMI of 50.0-59.9, adult: Code(s): E66.01 - Morbid (severe) obesity due to excess calories; Z68.43 - Body mass index [BMI] 50.0-59.9, adult Category: Medical Plan: 1.? Plan for lap sleeve gastrectomy. If diaphragmatic or ventral hernias are present at time of surgery, these will be repaired laparoscopically as well. I emphasized the importance of close follow-up, adherence to instructions and good communication. The surgery does not replace the need to change your lifestlyle which is the cause of the obesity problem. The surgery provides the motivation to try again to change your lifestyle, it reduces the appetite and make the transition to a better lifestyle easier and doubles the amount of weight you would lose compared to doing the lifestyle change without the surgery. You will need to be on a liquid diet with protein shakes for 2 weeks before surgery to maximize weight loss and boost your nutritional status to recover better from surgery and also for the first two weeks after surgery to let the stomach heal before we introduce other foods. After the first 2 weeks we will introduce protein bars and soft foods like scrambled eggs, cottage cheese and yogurt and after the 6th week will introduce meat, fish and cooked vegetables in small amounts. Over time you should be able to eat everything in small amounts. Side effects like nausea, vomiting, heartburn or abdominal pain are not common in the practice unless you are not following in the practice. This operation requires lifetime commitment to following in our practice and communication with me. You will much less weight and experience side effects if you don?t communicate or not following in the practice. Complications are rare and in our practice is about 1/10 of the national average. However, you can develop bleeding that may require transfusion (hasn?t happened for year in the practice), you may from complications (we did not have any deaths in the practice) and infections. Infections are usually a result of breakdown in communication or not understanding or following directions correctly. They are difficult to treat, they can happen during the first 6 weeks, they may require to be in the hospital for weeks or even months, not being able to eat by mouth and you may have drains and surgeries to try and correct the issue. Other risks and complications include possible conversion to an open procedure, leaks, small bowel obstruction, blood clots, cardiac, or pulmonary complications, as long term care social worker complications such as ulcers, insufficient weight loss and vitamin deficiencies. 2. Nutritional counseling. Start with one premade PURE protein (buy at [employer] or [employer] ([employer])) shake (4oz of Pure protein shake mixed with 4oz almond milk) at 6am-8am, one Pure protein bar at 9am-11am, another premade PURE protein shake (mix 4oz of Pure protein shake mixed with 4oz low fat unsweetened almond milk each) at 12pm-2pm, another Pure protein bar at 3pm-5pm,?dinner at 6pm (10 forks of protein and 10 forks of salad/vegetables) and one more Pure protein bar at 8pm-10pm. If hungry, you may have another HALF Pure protein bar at 11pm to midnight. So you do 2 protein shakes, 3 protein bars and one meal per day. Meal to include lean meat (beef, fish, pork, turkey, chicken), or romanian yogurt, or egg whites, or beans with a salad with olive oil and fruits (berries, pears, apples, kiwi). Avoid salt, breads, potatoes, rice, pasta, desserts. 3. Each shake would be drunk slowly, like coffee in a period of 2 hours. 4. Cut each bar in 4 pieces and eat each piece in 30min ?to make each bar last 2 hours. 5. I emphasized the importance of measuring accurately the food portion and measure it when serving the food in plate 6. The meal portions include 10 full-size forks of meat and 10 full-size forks of salad. You always eat the meat portion but you can replace up to 5 forks for salad/vegetables with rice, potatoes or pasta, or a fruit ?if you like. The less you do it the better weight loss will be. 7. One full-size fork is what it can be scooped on the fork without falling aside and not what can be bit with the fork. Use regular forks like those you find in a typical restaurant. 8.? Please buy the body composition scale we discussed and send me weight measurements as soon as possible and then once a week. Always include your diet and exercise plan. 9. Start walking outside daily, tracking calories with a goal of 300 calories per day, daily. Goal is to burn 2000 calories per week on exercise, which means either 300 calories daily, or 400 calories 5 days per week, or 500 calories 4 days per week, or 650 calories 3 days per week. 10. The best choice would be to purchase a stationary bike at home that can track calories. If you get one, start stationary bike at a resistance level of 0.0 Increase level by 1.0 every 3 min to a max level of 6.0. Stay at this level for 3 min and then return to level 0.0 and repeat same steps until 300 calories are burned. Goal is to burn 2000 calories per week on exercise 11.?It is important of avoiding and for at least 18 months postoperatively and has been discussed at the infosession. 12. Goal is to lose at least 1.5-2lbs per week 13. Goal to lose 10% of your weight before surgery, which is about 30lbs. Ultimate weight goal: 260lbs before surgery 14. Please follow the diet plan exactly without any change. If you don't like something about the plan or you feel hungry you need to communicate with me so I can help you revise the plan. You should not change the plan yourself 15. To be scheduled for EGD to assess the stomach's anatomy. The possibility of biopsies was discussed. Patient needs to avoid use of NSAIDs and aspirin for 1 week prior to EGD. You must be on liquids only the day before your endoscopy. Risks of perforation and bleeding was discussed with the patient. This will be an outpatient procedure with IV sedation. Orders: Orders Complete Blood Count Auto Diff Today E66.01 - Morbid (severe) obesity due to excess calories, I82.462 - Acute embolism and thrombosis of left calf muscular vein, Z68.43 - Body mass index [BMI] 50.0-59.9, adult Zinc Today E66.01 - Morbid (severe) obesity due to excess calories, I82.462 - Acute embolism and thrombosis of left calf muscular vein, Z68.43 - Body mass index [BMI] 50.0-59.9, adult C Reactive Protein Today E66.01 - Morbid (severe) obesity due to excess calories, I82.462 - Acute embolism and thrombosis of left calf muscular vein, Z68.43 - Body mass index [BMI] 50.0-59.9, adult Vitamin B1 Today E66.01 - Morbid (severe) obesity due to excess calories, I82.462 - Acute embolism and thrombosis of left calf muscular vein, Z68.43 - Body mass index [BMI] 50.0-59.9, adult Vitamin A Today E66.01 - Morbid (severe) obesity due to excess calories, I82.462 - Acute embolism and thrombosis of left calf muscular vein, Z68.43 - Body mass index [BMI] 50.0-59.9, adult TSH reflex Free T4 Today E66.01 - Morbid (severe) obesity due to excess calories, I82.462 - Acute embolism and thrombosis of left calf muscular vein, Z68.43 - Body mass index [BMI] 50.0-59.9, adult Ferritin Today E66.01 - Morbid (severe) obesity due to excess calories, I82.462 - Acute embolism and thrombosis of left calf muscular vein, Z68.43 - Body mass index [BMI] 50.0-59.9, adult Vitamin D 25-OH Total Today E66.01 - Morbid (severe) obesity due to excess calories, I82.462 - Acute embolism and thrombosis of left calf muscular vein, Z68.43 - Body mass index [BMI] 50.0-59.9, adult US abdomen comp w elastography Today E66.01 - Morbid (severe) obesity due to excess calories, I82.462 - Acute embolism and thrombosis of left calf muscular vein, Z68.43 - Body mass index [BMI] 50.0-59.9, adult FL upper GI w air Today E66.01 - Morbid (severe) obesity due to excess calories, I82.462 - Acute embolism and thrombosis of left calf muscular vein, Z68.43 - Body mass index [BMI] 50.0-59.9, adult Insulin Today E66.01 - Morbid (severe) obesity due to excess calories, I82.462 - Acute embolism and thrombosis of left calf muscular vein, Z68.43 - Body mass index [BMI] 50.0-59.9, adult Hemoglobin A1c Today E66.01 - Morbid (severe) obesity due to excess calories, I82.462 - Acute embolism and thrombosis of left calf muscular vein, Z68.43 - Body mass index [BMI] 50.0-59.9, adult H Pylori Breath Test Today E66.01 - Morbid (severe) obesity due to excess calories, I82.462 - Acute embolism and thrombosis of left calf muscular vein, Z68.43 - Body mass index [BMI] 50.0-59.9, adult Lipid Panel Today E66.01 - Morbid (severe) obesity due to excess calories, I82.462 - Acute embolism and thrombosis of left calf muscular vein, Z68.43 - Body mass index [BMI] 50.0-59.9, adult IRON PROFILE Today E66.01 - Morbid (severe) obesity due to excess calories, I82.462 - Acute embolism and thrombosis of left calf muscular vein, Z68.43 - Body mass index [BMI] 50.0-59.9, adult Comprehensive Met. Panel Today E66.01 - Morbid (severe) obesity due to excess calories, I82.462 - Acute embolism and thrombosis of left calf muscular vein, Z68.43 - Body mass index [BMI] 50.0-59.9, adult Vitamin B12 and Folate Today E66.01 - Morbid (severe) obesity due to excess calories, I82.462 - Acute embolism and thrombosis of left calf muscular vein, Z68.43 - Body mass index [BMI] 50.0-59.9, adult XR chest 2V Today E66.01 - Morbid (severe) obesity due to excess calories, I82.462 - Acute embolism and thrombosis of left calf muscular vein, Z68.43 - Body mass index [BMI] 50.0-59.9, adult ECG 12 lead EKG Today E66.01 - Morbid (severe) obesity due to excess calories, I82.462 - Acute embolism and thrombosis of left calf muscular vein, Z68.43 - Body mass index [BMI] 50.0-59.9, adult Referrals Nutrition/Dietitian Referral E66.01 - Morbid (severe) obesity due to excess calories, I82.462 - Acute embolism and thrombosis of left calf muscular vein, Z68.43 - Body mass index [BMI] 50.0-59.9, adult Behavioral Health Referral E66.01 - Morbid (severe) obesity due to excess calories, I82.462 - Acute embolism and thrombosis of left calf muscular vein, Z68.43 - Body mass index [BMI] 50.0-59.9, adult
[2025-08-06 10:30] VITALS: BMI 50.6
== END 2025-08-06 10:58 | disposition home or self-care (01) ==
LOC: HO.HBS 08:10
PROVIDERS: PCP Internal Medicine Geriatric Medicine; Visit Provider Surgery
DX: E66.01 Morbid (severe) obesity due to excess calories (principal); Z68.43 Body mass index [BMI] 50.0-59.9, adult
CPT/HCPCS: 99204

== ENCOUNTER 2025-09-08 09:10 | Outpatient (REF) | payer OTHER, SELFPAY ==
--- NOTE | ~2025-09-08 | XR_ITS ---
EXAMINATION: XR CHEST 2 VIEWS HISTORY: E66.01 - Morbid (severe) obesity due to excess calories COMPARISON: Comparison is made with the prior examination dated 05/15/2021. FINDINGS: PA and lateral views of the chest are submitted. The lungs are expanded and clear. There is no pleural effusion, pneumothorax, or pulmonary vascular congestion. The heart is normal in size. There is mild degenerative disc disease of the spine. XR/XR chest 2V IMPRESSION: No acute cardiopulmonary abnormality. Electronically signed by: Juanito Cabrera MD 09/08/2025 10:39 AM SARA
[2025-09-08 09:27] LABS: MANUAL DIFF FLAG NO
--- NOTE | 2025-09-08 09:34 | ECG_ITS ---
Test Reason : E66.01 Blood Pressure : */* mmHG Vent. Rate : 66 BPM Atrial Rate : 66 BPM P-R Int : 156 ms QRS Dur : 70 ms QT Int : 364 ms P-R-T Axes : -10 55 19 degrees QTcB Int : 381 ms Normal sinus rhythm Low voltage QRS Borderline ECG When compared with ECG of 06-Aug-2024 11:26, No significant change was found Referred By: Parker Ortiz Electronically Signed By: MARK BARRERA
[2025-09-08 09:42] LABS: Hematocrit 44.1 % (37.0-47.0); Hemoglobin 14.7 g/dl (12.0-16.0); Imm Gran Abs Auto 0.06 X10*3/uL (0.00-0.03); Imm Gran Pct Auto 0.8 % (0.0-0.4); Lymphocytes Absolute Auto 2.4 X10*3/uL (1.2-4.9); Mean Corpuscular HGB Conc 33.3 g/dl (31.0-35.0); Mean Corpuscular Hemoglobin 29.3 pg (27.0-33.0); Mean Corpuscular Volume 87.8 fL (80.0-98.0); NRBC Abs Auto 0.000 X10*3/uL (0.0-0.012); NRBC Pct Auto 0.0 /100WBC (0.0-0.2); Platelet Count 339 X10*3/uL (160-400); Red Blood Count 5.02 X10*6/uL (4.20-5.50); White Blood Count 7.6 X10*3/uL (4.8-10.8)
[2025-09-08 09:48] LABS: Hemoglobin A1C 152.2267 umol/L
--- OUTSIDE RECORDS SUMMARY | 2025-09-08 09:51 | XMS_ITS | Clinical Summary ---
Author Organization [employer] Address [address] [facility] 7t [place] [address] Care Team Providers Care Automotive Leasing Sales Representative Name Role Phone Name, Artie PEREZ Primary Care Provider Allergies Active Allergy Reactions Criticality Noted Date [...] 45 g 2 5 03/05/20 26 Active nicotine (Nicoderm CQ) 14 MG/24HR patch Place 1 patch on the skin 1 (one) time each day at the same time. 42 patch 5 Active nicotine (Nicoderm CQ) 7 MG/24HR patch Place 1 patch on the skin 1 (one) time each day at the same time. 14 patch 5 Active nicotine polacrilex (Commit) 2 MG lozenge Dissolve 1 lozenge (2 mg) in the mouth if needed for smoking cessation. 100 lozenge 5 Active SUMAtriptan (Imitrex) 50 MG tablet Take 1 tablet (50 mg) by mouth 1 (one) time if needed for migraine for up to 1 dose. May repeat dose once in 2 hours if no relief. Do not exceed 2 doses in 24 hours. 9 tablet 1 5 Active fluticasone (Flonase Allergy Relief) 50 MCG/ACT nasal spray Administer 1 spray into each nostril Once per day. Shake gently. Before first use, prime pump. After use, clean tip and replace cap. 16 g 12 5 06/15/20 26 Active Blood Pressure kit 1 each 2 times daily. 1 kit 5 06/15/20 26 Active ARIPiprazole (Abilify) 10 MG tabletIndication s:Bipolar affective disorder, remission status unspecified (CMS/HCC) ([facility]) TAKE 1 TABLET BY MOUTH EVERY DAY FOR MOOD STABILITY 30 tablet 5 Active buPROPion SR (Wellbutrin SR) 150 MG 12 hr tabletIndication s:Bipolar affective disorder, remission status unspecified (CMS/HCC) ([facility]) TAKE 1 TABLET BY MOUTH EVERY DAY FOR 3 DAYS, THEN TAKE 1 TABLET BY MOUTH TWICE DAILY. DO NOT BREAK, CRUSH, DISSOLVE OR CHEW. 60 tablet 2 5 Active Active Problems Problem Noted Date [...] recurrent major depressive disorder, without psychotic features ([facility]) 01/12/2016 Overview (02/01/2023): In hospital 04/14 Assessment & Plan (02/14/2024 9:50 AM EDT): PROGRESS NOTE: ID: Fanny is a 43 y.o. straight-identified cis-female with previous documented hx of Depression, Anxiety, Self Harm, and Suicide Ideation services including OP Psychotherapy psychopharmacology who presents for Anxiety, Depression, and Suicidal. Fanny has been in a chcf unit since 2019, apartment is not up to health code. She has been working with [employer] since 2019 without any success. Living in chcf with her 16 y/o son. During IBH [...] the context of Ptn facing eviction from chcf unit, suicidal attempt last week, lack of support, stress relationship with family and multiple stressful situations experienced in the chcf. PLAN: (check all that apply) Behavioral Health Integration Plan Internal Follow up with [facility] Patient Self Plan Patient to utilize skills provided in intervention , Patient to reach out to HHC team as needed, Comply with medication , and Patient to reach out to [facility] as needed Rectal bleeding 11/15/2014 DJD (degenerative joint disease) of knee 015 BARTOLOME (obstructive sleep apnea) 04/13/2014 Severe obesity ([facility]) 01/18/2014 Tension headache 06/29/2010 Elevated rheumatoid factor 06/05/2009 Encounters Date Type Department Care Team Description 09/08/2025 Orders Only GENERIC EXTERNAL DATA DEPARTMENT Provider, Generic External Data 07/16/2025 Refill [facility] [address] [place] [address] Artie Zelaya MD Bipolar affective disorder, remission status unspecified ([facility]) (HCC) 06/23/2025 Telephone [facility] [address] [place] [address] Artie Zelaya MD Medication Question 06/23/2025 Refill [facility] [address] [place], [place] [phone] Artie Zelaya MD Bipolar affective disorder, remission status unspecified ([facility]) 06/16/2025 Telephone [facility] [address] [place] [address] Artie Zelaya MD 06/15/2025 8:40 AM EDT Office Visit [facility] [address] [place] [address] Ben Tamez MD Acute non-recurrent sinusitis, unspecified location (Primary Dx); Elevated blood pressure reading in office without diagnosis of hypertension; Tobacco dependence; Viral URI 06/15/2025 Travel 06/09/2025 Telephone [facility] [address] [place], [place] [phone] Artie Zelaya MD call back requets from Last 3 Months Immunizations Immunization Administration [...] is your housing situation today? I have jadainna rawls 02/25/[address] you [...] 03/05/2026 03/05/2025 Diabetes: Hemoglobin A1C 03/06/2026 025, 03/06/2025, 09/13/2022, Additional history exists Mammogram 04/02/2026 04/02/2025, 04/15/2023 Tobacco Screening 06/15/2026 [...] Date/Time Associated Diagnosis Comments HEMOGLOBIN A1C Routine 09/08/2025 9:25 AM EST CBC WITH AUTO DIFFERENTIAL Routine 09/08/2025 9:25 AM EST POCT INFLUENZA B (ID NOW RAPID MOLECULAR) Routine 06/15/2025 9:00 AM EDT Viral URI POCT INFLUENZA A (ID NOW RAPID MOLECULAR) Routine 06/15/2025 9:00 AM EDT Viral URI POCT RAPID COVID ANTIGEN Routine 06/15/2025 9:00 AM EDT Viral URI HIV 1/2 ANTIGEN/ANTIBODY, FOURTH GENERATION W/RFL Routine 04/08/2025 11:41 AM EDT BI MAMMOGRAM SCREENING TOMOSYNTHESIS BILATERAL Routine 04/02/2025 11:40 AM EDT Encounter for screening mammogram for malignant neoplasm of breast LIPID PANEL, STANDARD Routine 03/06/2025 8:09 AM EDT Pulmonary embolism, unspecified chronicity, unspecified pulmonary embolism type, unspecified whether acute cor pulmonale present (CMS/HCC) Morbid obesity (CMS/HCC) EMMIE HISTORICAL HEPATITIS C ANTIBODY Routine 08/02/2022 9:54 AM EDT HM PAP/HPV Routine 10/12/2020 from Last 3 Months or Most Recently Relevant to Health Maintenance Results * (ABNORMAL) CBC auto differential (09/08/2025 9:25 AM EST) White Blood Count 7.6 4.8 - 10.8 X10*3/uL [facility] Red Blood Count 5.02 4.20 - 5.50 X10*6/uL [facility] Hemoglobin 14.7 12.0 - 16.0 g/dl [facility] Hematocrit 44.1 37.0 - 47.0 % [facility] Mean Corpuscular Volume 87.8 80.0 - 98.0 fL [facility] Mean Corpuscular Hemoglobin 29.3 27.0 - 33.0 pg [facility] Mean Corpuscular HGB Conc 33.3 31.0 - 35.0 g/dl [facility] Red Cell Distribution Width 12.6 11.0 - 16.0 % [facility] Platelet Count 339 160 - 400 X10*3/uL [facility] Mean Platelet Volume 8.4(L) 9.4 - 12.3 fL [facility] Neutrophils Percent Auto 55.9 45 - 73 % [facility] Imm Gran Pct Auto 0.8(H) 0.0 - 0.4 % [facility] Lymphocytes Percent Auto 31.5 20 - 40 % [facility] Monocytes Percent Auto 9.6 2 - 11 % [facility] Eosinophils Percent Auto 1.7 0 - 4 % [facility] Basophils Percent Auto 0.5 0 - 2 % [facility] NRBC Pct Auto 0.0 0.0 - 0.2 /100WBC [facility] Neutrophils Absolute Auto 4.3 2.0 - 8.3 x10*3/uL [facility] Imm Gran Abs Auto 0.06(H) 0.00 - 0.03 X10*3/uL [facility] Lymphocytes Absolute Auto 2.4 1.2 - 4.9 X10*3/uL [facility] Monocytes Absolute Auto 0.7 0.1 - 1.2 X10*3/uL [facility] Eosinophils Absolute Auto 0.1 0.0 - 0.4 X10*3/uL [facility] Basophils Absolute Auto 0.0 0.0 - 0.2 X10*3/uL [facility] NRBC Abs Auto 0.000 0.0 - 0.012 X10*3/uL [facility] 09/08/2025 9:25 AM EST 09/08/2025 9:25 AM EST us Generic External Data Provider LAB BLOOD ORDERAB LES Final Result [facility] [address] [place] [phone] * Hemoglobin A1c (09/08/2025 9:25 AM EST) Hemoglobin A1c 5.9 <6.0 % [facility] Comment:Hemoglobin A1C Refer ence Range Adults: 4.8 - 6.0 % Non diabetic: < 6.0 % Goal: < 7.0 %Additional Action Suggested: > 8.0 %Note: Hemoglobin A1c results are invalid for patients with abnormal amounts of HbF. Blood transfusions may impact the HbA1c concentration in the patient sample. Estimated Average Glucose 123 mg/dL [facility] Comment:eAG = Estimated ave rage glucose which is %A1C expressed asaverage glucose, using the formula of the Z6I-ElboyyhPicqgxj Glucose study (ADAG), Diabetes Care, Vol.31,#8,May. 2007 09/08/2025 9:25 AM EST 09/08/2025 9:25 AM EST us Generic External Data Provider LAB BLOOD ORDERAB LES Final Result Performing Organization Address [facility]/ZIP Co de Phone Number [facility] [address] [place] [phone] * Influenza B (ID NOW Rapid Molecular) (06/15/2025 9:00 AM EDT) Pathologist [facility] Influenza B Negative Negative, Indeterminate [facility] Swab 06/15/2025 9:00 AM EDT Ben Tamez MD POINT OF CARE TEST ENTER/EDIT OR DERABLES Final Result Performing Organization Address [facility] Co de Phone Number [facility] [address] [place] [phone] * Influenza A (ID NOW Rapid Molecular) (06/15/2025 9:00 AM EDT) Pathologist [facility] Influenza A Negative Negative, Indeterminate [facility] Swab 06/15/2025 9:00 AM EDT Ben Tamez MD POINT OF CARE TEST ENTER/EDIT OR DERABLES Final Result Performing Organization Address [facility] Co de Phone Number [facility] [address] [place] [address] [phone] * POCT Rapid COVID Ag (06/15/2025 9:00 AM EDT) Rapid COVID Ag Negative [facility] Swab 06/15/2025 9:00 AM EDT Ben Tamez MD POINT OF CARE TEST ENTER/EDIT OR DERABLES Final Result Performing Organization Address [facility] Co de Phone Number [facility] [address] [place] [address] [phone] * HIV-1/2 Antigen and Antibodies, Fourth Generation, with Reflexes (04/08/2025 11:41 AM EDT) HIV AB/AG Nonreactive Nonreactive [facility] Comment:HIV-1 p24 Ag and/or HIV-1/HIV-2 Ab not detected.A test result that is nonreactive does not exclude thepossibility of exposure to or infection with HIV-1 and/orHIV-2. Nonreactive results in this assay for individualswith prior exposure to HIV-1 and/or HIV-2 may be due toantigen and antibody levels that are below the limit ofdetection of this assay.The [employer] HIV Ag/Ab Combo assay result andsupplemental assay results should be interpreted inconjunction with the patient's clinical presentation,history and other laboratory results. If the results areinconsistent with clinical evidence, additional testing issuggested to confirm the result. 04/08/2025 11:4 1 AM EDT 04/08/2025 11:41 AM EDT us Generic External Data Provider LAB BLOOD ORDERAB LES Final Result [facility] [address] [place] [phone] * BI Mammogram Screening Tomosynthesis Bilateral (04/02/2025 11:40 AM EDT) Anatomical Region Laterality Modality Breast Bilateral Mammography 04/02/2025 11:4 0 AM EDT Narrative 04/17/2025 10:52 PM EDT [facility] [address] [place] [address] Mammography Report Signed Patient: Fanny Armstrong MR#: [id number] 66 : 1980 Acct:[id number] Age/Sex: 44 / F ADM Date: 04/02/25 Loc: [facility] Attending Dr: Artie Zelaya MD Ordering Physician: Artie Zelaya MD Results: 1Negative Date of Service: 04/02/25 Follow Up: 1 Year From Orig inal Mammogram Procedure(s): MM tomosynthesis screening BI Accession Number(s): [id number] cc: Artie Zelaya MD EXAMINATION: MM SCREENING [...] 04/17/25 2249 DD/ 1140 TD/TT: 04/02/25 1200 C++ Professor: Procedure Note Donotuseinterpreter, Image - 04/17/2025 [facility] [address] [place] [address] Mammography Report Signed Patient: Fanny Armstrong [facility]#: [id number] 66 : 1980Acct:[id number] Age/Sex: 44 / FADM Date: 04/02/25 Loc: HO.MAMMO Attending Dr: Artie Zelaya MD Ordering Physician: Artie Zelaya MDResults: 1Negative Date of Service: 04/02/25Follow Up: 1 Year From Orig inal Mammogram Procedure(s): MM tomosynthesis screening BI Accession Number(s): [id number] cc: Artie Zelaya MD EXAMINATION: MM SCREENING [...] 04/17/25 2249 DD/ 1140 TD/TT: 04/02/25 1200 C++ Professor: us Artie Name MD [facility]ANOVA BI PROCEDURES Edited Result - Final * (ABNORMAL) Lipid Panel, Standard (03/06/2025 8:09 AM EDT) Triglycerides 65 <150 mg/dL [facility] Comment:Desirable Triglyceri de: less than 150 mg/dLBorderline High Triglyceride 150-199 mg/dLHigh Triglyceride: 200-499 mg/dLVery High Triglyceride: greater than or equal to 5OO mg/dL Cholesterol 147 <200 mg/dL [facility] Comment:Desirable Cholestero l: less than 200 mg/dLBorderline High Cholesterol: 200-239 mg/dLHigh Cholesterol: greater than 239 mg/dL LDL Cholesterol Calculated 101(H) <100 mg/dL [facility] Comment:Desirable LDL: less than 100 mg/dLNear Optimal/Above Optimal LDL: 110- 129 mg/dLBorderline High LDL: 130-159 mg/dLHigh LDL: 160-189 mg/dLVery High LDL: greater than or equal to 190 mg/dL HDL Cholesterol 33(L) >40 mg/dL [facility] Comment:Desirable HDL: great er than 40 mg/dL Note: This HDL assay may give artificially low results in patients with liver disease. Blood Venous blood specimen / Unknown 03/06/2025 8:09 AM EDT 03/06/2025 8:09 AM EDT Artie Zelaya MD LAB BLOOD ORDERABLES Final Resul t Performing Organization Address City/[facility]/ZIP Co de Phone Number [facility] [address] [place] [address] [phone] * Hepatitis C Antibody (08/02/2022 9:54 [...] of detection of this assay. The [employer] HIV Ag/Ab Combo assay result and supplemental assay results should be interpreted in conjunction with the patient's clinical presentation, history and other laboratory results. If the results are inconsistent with clinical evidence, additional testing is suggested to confirm the result. 08/02/2022 9:54 AM EDT us Sheyla Mendoza HISTORICAL/NON ORDERABLE LABS Fi nal Result CONVERTED LEGACY LABS * HM PAP/HPV (10/12/2020) Pap Smear 1. NILM 1. NILM HPV Not Detected Undetected, Indeterminat e, Quantitative , Not Detected Sheyla Mendoza HEALTH MAINTENANCE Final Result from Last 3 Months or Most Recently Relevant to Health Maintenance Insurance [facility] , [address] [place] [phone] Care Teams Automotive Leasing Sales Representative Relationship Specialty Start Date End Date Name, MD Artie [address] [place] [phone] PCP - General Family Medicine 01/11/16
--- OUTSIDE RECORDS SUMMARY | 2025-09-08 09:51 | XMS_ITS | Clinical Summary ---
Author Organization [facility] Address [address] [place] [phone] Phone Care Team Providers Care Latex Caster Name Role Phone Unavailable Primary Care Provider [...]
--- OUTSIDE RECORDS SUMMARY | 2025-09-08 09:52 | XMS_ITS | Encounter Summary ---
Author Organization [employer] Address [address] [facility] 7t [place] [address] Care Team Providers Care Tobacco Curer Name Role Phone Name, Artie PEREZ Primary Care Provider [phone] Reason for Visit * Reason Onset Date Comments appt 02/1702/27/2024 Encounter Details Date Type Department Care Team ([facility] Contact Info) Description 02/27/2024 Telephone [facility] [address] [place], [place] [phone] Name, MD Artie [address] [place] [address] appt 02/17 Social History Tobacco Use Types [...] EDT Tc from pt requested to cancel [facility] appt for tomorrow remote mortgage underwriter advised pt to call back tomorrow to reschedule. documented in this encounter Plan of Treatment Not on file documented as of this encounter Visit Diagnoses Not on filedocumented in this encounter Additional Health Concerns Assessment Noted Time PHQ-9 Depression Total Score: 24 024 9:40 AM EDT documented as of this encounter Care Teams Tobacco Curer Relationship Specialty Start Date End Date Name, MD Artie [address] [place] [address] PCP - General Family Medicine 01/11/16 documented as of this encounter
--- OUTSIDE RECORDS SUMMARY | 2025-09-08 09:52 | XMS_ITS | Encounter Summary ---
Author Organization [employer] Address [address] [facility] [address] [place] [address] Care Team Providers Care Package Sorter Name Role Phone Name, Artie PEREZ Primary Care Provider [phone] Encounter Details Date Type Department Care Team ([facility] Contact Info) Description 09/08/2025 Orders Only GENERIC EXTERNAL DATA DEPARTMENT Provider, Generic External Data Social History Tobacco Use Types Packs/Day Years [...] AM EDT documented as of this encounter Plan of Treatment Not on file documented as of this encounter Procedures Procedure Name Priority Date/Time Associated Diagnosis Comments CBC WITH AUTO DIFFERENTIAL Routine 09/08/2025 9:25 AM EST HEMOGLOBIN A1C Routine 09/08/2025 9:25 AM EST documented in this encounter Results * Hemoglobin A1c (09/08/2025 9:25 AM EST) Hemoglobin A1c 5.9 <6.0 % [facility] Comment:Hemoglobin A1C Refer ence Range Adults: 4.8 - 6.0 % Non diabetic: < 6.0 % Goal: < 7.0 %Additional Action Suggested: > 8.0 %Note: Hemoglobin A1c results are invalid for patients with abnormal amounts of HbF. Blood transfusions may impact the HbA1c concentration in the patient sample. Estimated Average Glucose 123 mg/dL [facility] Comment:eAG = Estimated ave rage glucose which is %A1C expressed asaverage glucose, using the formula of the X9D-MzyffddQjxnsoz Glucose study (ADAG), Diabetes Care, Vol.31,#8,May. 2007 09/08/2025 9:25 AM EST 09/08/2025 9:25 AM EST us Generic External Data Provider LAB BLOOD ORDERAB LES Final Result [facility] [address] [place] [phone] * (ABNORMAL) CBC auto differential (09/08/2025 9:25 AM EST) White Blood Count 7.6 4.8 - 10.8 X10*3/uL [facility] Red Blood Count 5.02 4.20 - 5.50 X10*6/uL [facility] Hemoglobin 14.7 12.0 - 16.0 g/dl [facility] Hematocrit 44.1 37.0 - 47.0 % [facility] Mean Corpuscular Volume 87.8 80.0 - 98.0 fL [facility] Mean Corpuscular Hemoglobin 29.3 27.0 - 33.0 pg [facility] Mean Corpuscular HGB Conc 33.3 31.0 - 35.0 g/dl [facility] Red Cell Distribution Width 12.6 11.0 - 16.0 % [facility] Platelet Count 339 160 - 400 X10*3/uL [facility] Mean Platelet Volume 8.4(L) 9.4 - 12.3 fL [facility] Neutrophils Percent Auto 55.9 45 - 73 % [facility] Imm Gran Pct Auto 0.8(H) 0.0 - 0.4 % [facility] Lymphocytes Percent Auto 31.5 20 - 40 % [facility] Monocytes Percent Auto 9.6 2 - 11 % [facility] Eosinophils Percent Auto 1.7 0 - 4 % [facility] Basophils Percent Auto 0.5 0 - 2 % [facility] NRBC Pct Auto 0.0 0.0 - 0.2 /100WBC [facility] Neutrophils Absolute Auto 4.3 2.0 - 8.3 x10*3/uL [facility] Imm Gran Abs Auto 0.06(H) 0.00 - 0.03 X10*3/uL [facility] Lymphocytes Absolute Auto 2.4 1.2 - 4.9 X10*3/uL [facility] Monocytes Absolute Auto 0.7 0.1 - 1.2 X10*3/uL [facility] Eosinophils Absolute Auto 0.1 0.0 - 0.4 X10*3/uL [facility] Basophils Absolute Auto 0.0 0.0 - 0.2 X10*3/uL [facility] NRBC Abs Auto 0.000 0.0 - 0.012 X10*3/uL [facility] 09/08/2025 9:25 AM EST 09/08/2025 9:25 AM EST us Generic External Data Provider LAB BLOOD ORDERAB LES Final Result [facility] [address] [place] [phone] documented in this encounter Visit Diagnoses Not on filedocumented in this encounter Additional Health Concerns Assessment Noted Time PHQ-9 Depression Total Score: 24 03/05/ 025 10:56 AM EDT documented as of this encounter Care Teams Package Sorter Relationship Specialty Start Date End Date Name, MD Artie [address] [place] [address] PCP - General Family Medicine 01/11/16 documented as of this encounter
--- OUTSIDE RECORDS SUMMARY | 2025-09-08 09:52 | XMS_ITS | Encounter Summary ---
Author Organization [employer] Address [address] [facility] [address]t [place] [address] Care Team Providers Care Final Installer Inspector Name Role Phone Name, Artie PEREZ Primary Care Provider [phone] Reason for Visit * Reason Onset Date Comments Nurse Triage 02/15/2025 Encounter Details Date Type Department Care Team ([facility] Contact Info) Description 02/15/2025 Telephone [facility] [address] [place], [place] [phone] Name, MD Artie [address] [place] [address] Nurse Triage Social History Tobacco Use Types [...] documented as of this encounter Care Teams Final Installer Inspector Relationship Specialty Start Date End Date Name, MD Artie [address] [place] [address] PCP - General Family Medicine 01/11/16 documented as of this encounter
[2025-09-08 11:04] LABS: Alanine Aminotransferase 46 U/L (0-31); Albumin Level 4.2 g/dL (3.5-5.0); Alkaline Phosphatase 51 U/L (39-117); Anion Gap 11 (12-20); Aspartate Amino Transferase 34 U/L (5-31); Blood Urea Nitrogen 12 mg/dL (9-16); Calcium 9.4 mg/dL (8.4-10.2); Carbon Dioxide 25 mmol/L (22-29); Chloride 109 mmol/L (96-108); Cholesterol 158 mg/dL (<200); Estimated Glomerular Filt Rate > 60; HDL Cholesterol 38 mg/dL (>40); Iron 59 mcg/dL (30-160); Percent Iron Saturation 22 % (15-50); Potassium 4.3 mmol/L (3.3-5.1); Sodium 141 mmol/L (135-145); Total Iron Binding Capacity 265 mcg/dL (228-428); Total Protein 7.7 g/dL (6.5-8.0); Triglycerides 76 mg/dL (<150); Unsaturated Iron Binding 206 ug/dL
[2025-09-08 11:08] LABS: Ferritin 56 ng/mL (10-250)
[2025-09-08 11:35] LABS: Folate 9.9 ng/mL (> or = 4.0); Vitamin B12 747 pg/mL (200-900)
== END 2025-09-08 09:11 | disposition home or self-care (01) ==
LOC: HO.LAB 09:10
PROVIDERS: PCP Internal Medicine Geriatric Medicine; Visit Provider Surgery
DX: I82.462 Acute embolism and thrombosis of left calf muscular vein (principal); E66.01 Morbid (severe) obesity due to excess calories; Z68.43 Body mass index [BMI] 50.0-59.9, adult; Z13.29 Encounter for screening for other suspected endocrine disorder; Z13.0 Encounter for screening for diseases of the blood and blood-forming organs and certain disorders involving the immune mechanism; Z13.1 Encounter for screening for diabetes mellitus
CPT/HCPCS: 36415; 71046; 80053; 80061; 82306; 82607; 82728; 82746; 83036; 83525; 83540; 84425; 84443; 84590; 84630; 85025; 86140; 93005

== ENCOUNTER → 2025-09-08 09:30 | Outpatient (BNV) | payer OTHER, SELFPAY | PROVIDERS: PCP Internal Medicine Geriatric Medicine; Visit Provider Radiology Diagnostic Radiology | DX: E66.01 Morbid (severe) obesity due to excess calories (principal); Z68.43 Body mass index [BMI] 50.0-59.9, adult | CPT/HCPCS: 71046 ==

== ENCOUNTER → 2025-09-08 09:34 | Outpatient (BNV) | payer OTHER, SELFPAY | PROVIDERS: PCP Internal Medicine Geriatric Medicine; Visit Provider Internal Medicine | DX: E66.01 Morbid (severe) obesity due to excess calories (principal) | CPT/HCPCS: 93010 ==

== ENCOUNTER 2025-10-06 10:49 | Outpatient (AMB) | payer OTHER, SELFPAY ==
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
--- OUTSIDE RECORDS SUMMARY | 2025-10-06 12:14 | XMS_ITS | Clinical Summary ---
Author Organization [facility] Address [address] [place] [id number] Phone Care Team Providers Care Management Specialist Name Role Phone Unavailable Primary Care Provider [...]
--- OUTSIDE RECORDS SUMMARY | 2025-10-06 12:14 | XMS_ITS | Encounter Summary ---
Author Organization [employer] Address [address] [facility] [address] [place] [address] Care Team Providers Care Photography Sales Associate Name Role Phone Name, Artie PEREZ Primary Care Provider [phone] Reason for Visit * Reason Onset Date Comments appt 02/1702/27/2024 Encounter Details Date Type Department Care Team ([facility] Contact Info) Description 02/27/2024 Telephone [facility] [address] [place], [place] [phone] Name, MD Artie [address] [place] [address] appt 02/17 Social History Tobacco Use Types [...] EDT Tc from pt requested to cancel [facility] [employer] health appt for tomorrow display card writer advised pt to call back tomorrow to reschedule. documented in this encounter Plan of Treatment Upcoming Encounters Date Type Department Care Team (Late st Contact Info) Description 11/17/2025 9:30 AM EST Office Visit [facility] [address] [place] [address] Name, MD Artie [address] [place] [address] documented as of this encounter Visit Diagnoses Not on filedocumented in this encounter Additional Health Concerns Assessment Noted Time PHQ-9 Depression Total Score: 24 024 9:40 AM EDT documented as of this encounter Care Teams Photography Sales Associate Relationship Specialty Start Date End Date Name, MD Artie [address] [place] [phone] PCP - General Family Medicine 01/11/16 documented as of this encounter
--- OUTSIDE RECORDS SUMMARY | 2025-10-06 12:14 | XMS_ITS | Encounter Summary ---
Author Organization [employer] Address [address] [facility] [address] [place] [address] Care Team Providers Care Hydraulic Controls Technician Name Role Phone Name, Artie PEREZ Primary Care Provider [phone] Encounter Details Date Type Department Care Team (Latest Contact Info) Description 09/08/2025 Results Follow-Up [facility] [address] [place], [place] [phone] Name, MD Artie [address] [place] [address] CBC auto differential, Hemoglobin A1c, Comprehensive Metabolic Panel, Additional followed-up results: 8 Social History Tobacco Use Types Packs/Day Years [...] as of this encounter Plan of Treatment Upcoming Encounters Date Type Department Care Team (Late st Contact Info) Description 11/17/2025 9:30 AM EST Office Visit [facility] [address] [place] [phone] Name, MD Artie [address] [place] [address] documented as of this encounter Visit Diagnoses Not on filedocumented in this encounter Additional Health Concerns Assessment Noted Time PHQ-9 Depression Total Score: 24 025 10:56 AM EDT documented as of this encounter Care Teams Hydraulic Controls Technician Relationship Specialty Start Date End Date NameArtie MD [address] [place] [phone] PCP - General Family Medicine 01/11/16 documented as of this encounter
--- OUTSIDE RECORDS SUMMARY | 2025-10-06 12:14 | XMS_ITS | Clinical Summary ---
Author Organization [employer] Address [address] [place] [address] [address] [place] [address] Care Team Providers Care Transfer Specialist Name Role Phone Name, Artie PEREZ Primary Care Provider [phone] Allergies Active Allergy Reactions Criticality Noted Date Comments Ibuprofen Hives 03/31/2009 Other reaction(s): Hives/Urticaria Medications * This document contains information received from the source organization and may not represent a complete record from that organization. apixaban (Eliquis) 5 MG tablet Take 1 tablet (5 mg) by mouth 2 times daily. 60 tablet 11 09/23/2025 9:00 AM EST 5 Active mometasone (Elocon) 0.1 % ointment [...] doses in 24 hours. 9 tablet 1 09/23/2025 9:00 AM EST 5 Active fluticasone (Flonase Allergy Relief) 50 [...] s:Bipolar affective disorder, remission status unspecified (CMS/HCC) ([facility]) TAKE 1 TABLET BY MOUTH EVERY DAY FOR MOOD STABILITY 30 tablet 5 Active buPROPion SR (Wellbutrin SR) 150 MG 12 hr tabletIndication s:Bipolar affective disorder, remission status unspecified (CMS/HCC) ([facility]) TAKE 1 TABLET BY MOUTH EVERY DAY FOR 3 DAYS, THEN TAKE 1 TABLET BY MOUTH TWICE DAILY. DO NOT BREAK, CRUSH, DISSOLVE OR CHEW. 60 tablet 2 09/23/2025 9:00 AM EST 5 Active gabapentin (Neurontin) 100 MG capsule Take 1 capsule (100 mg) by mouth at bedtime for 7 days, THEN 1 capsule (100 mg) 2 times daily for 7 days, THEN 1 capsule (100 mg) 3 times daily. 111 capsule 1 09/23/2025 9:00 AM EST 5 11/06/19 26 Active ergocalciferol (Vitamin D2) 1.25 MG (38641 UT) capsuleIndicatio ns:Vitamin D Deficiency Take 1 capsule (1.25 mg) by mouth 1 (one) time per week. 8 capsule 09/23/2025 9:00 AM EST 5 11/18/19 26 Active Active Problems Problem Noted Date Diagnosed [...] recurrent major depressive disorder, without psychotic features ([facility]) 01/12/2016 Overview (02/01/2023): In hospital 04/14 Assessment & Plan (02/14/2024 9:50 AM EDT): PROGRESS NOTE: ID: Fanny is a 43 y.o. straight-identified cis-female with previous documented hx of Depression, Anxiety, Self Harm, and Suicide Ideation MH services including OP Psychotherapy psychopharmacology who presents for Anxiety, Depression, and Suicidal. Fanny has been in a care home unit since 2019, apartment is not up to health code. She has been working with [employer] since 2019 without any success. Living in care home with her 16 y/o son. During [...] the context of Ptn facing eviction from care home unit, suicidal attempt last week, lack of support, stress relationship with family and multiple stressful situations experienced in the care home. PLAN: (check all that apply) Behavioral Health Integration Plan Internal Follow up with [facility] Patient Self Plan Patient to utilize skills provided in intervention , Patient to reach out to [facility] team as needed, Comply with medication , and Patient to reach out to [facility] as needed Rectal bleeding 11/15/2014 DJD (degenerative joint disease) of knee 015 BARTOLOME (obstructive sleep apnea) 04/13/2014 Severe obesity (CMS/HCC) 01/18/2014 Tension headache 06/29/2010 Elevated rheumatoid factor 06/05/2009 Encounters Date Type Department Care Team Description 09/09/2025 10:00 AM EST Office Visit [facility] [address] [place] [address] Artie Zelaya MD Chronic bilateral low back pain with right-sided sciatica (Primary Dx); Severe episode of recurrent major depressive disorder, without psychotic features (CMS/HCC) (HCC); Morbid obesity (CMS/HCC) ([facility]); Vitamin D deficiency; Encounter for immunization 09/09/2025 Travel 09/08/2025 Travel 09/08/2025 Telephone [facility] [address] [place] [address] Artie Zelaya MD Appointment 09/08/2025 Results Follow-Up [facility] [address] [place] [address] Artie Zelaya MD CBC auto differential, Hemoglobin A1c, Comprehensive Metabolic Panel, Additional followed-up results: 8 09/08/2025 Orders Only GENERIC EXTERNAL DATA DEPARTMENT Provider, Generic External Data 07/16/2025 Refill [facility] [address] [place] [address] Artie Zelaya MD Bipolar affective disorder, remission status unspecified (CMS/HCC) ([facility]) from Last 3 Months Immunizations Immunization Administration Dates Next Due Influenza Injectable Quadriv alant Preservative Free IIV4 MDCK 08/09/2022 Influenza injectable quadriv alent IIV4 with preservative 07/21/2019,07/25/2018,06/28/2017 Influenza injectable quadriv alent preservative free 07/16/2023,09/03/2022,01/12/2016 Influenza, IIV3, injectable 06/15/2015, 5 Influenza, seasonal, injecta ble, preservative free 09/09/2025 Moderna Covid-19 Vaccine 12+ 11/15/2021 PPD Test 03/07/2015,05/27/2013 Pfizer Covid-19 Vaccine 12+ 09/03/2023 Pfizer Covid-19 Vaccine 12+ jay-sucrose (Banks Cap) 11/25/2021 Pneumococcal Conjugate PCV 20 09/09/2025 TD (adult), 2 Lf tetanus tox oid, [...] Sign Reading Time Taken Comments Blood Pressure 120/82 09/09/2025 10:12 AM EST Pulse 75 09/09/2025 10:12 AM EST Temperature 36.3 C (97.3 F) 09/09/2025 10:12 AM EST Respiratory Rate 12 09/09/2025 10:12 AM EST Oxygen Saturation 98% 09/09/2025 10:12 AM EST Inhaled Oxygen Concentration - - Weight 134 kg (296 lb 6.4 oz) 09/09/2025 10:12 A M EST Height 160 cm (5' 3 ) 09/09/2025 10:12 AM EST Body Mass Index 52.5 09/09/2025 10:12 AM EST Plan of Treatment Upcoming Encounters Date Type Department Care Team (Late st Contact Info) Description 11/17/2025 9:30 AM EST Office Visit [facility] [address] [place] [phone] Name, MD Artie [address] [place] [address] Health Maintenance Due Date Last Done Comments Family Planning (PISQ) 1997 HPV Vaccines (1 - 3-dose series) 1997 Hepatitis B Vaccines (1 of 3 - 19+ 3-dose series) 2001 Pap Smear 10/12/2023 10/12/2020 COVID-19 Vaccine ( season) 2025 09/03/2023, 11/25/2021, 11/15/2021, Additional history exists Depression Monitoring 09/05/2025 03/05/2025, 025 Cervical Cancer Screening 10/12/2025 HPV/Cotest 10/12/2025 10/12/2020 SDOH Screening 02/25/2026 02/25/2025 Alcohol/Substance Use Screening 03/05/2026 03/05/2025 Mammogram 04/02/2026 04/02/2025, 04/15/2023 Diabetes: Hemoglobin A1C 09/08/2026 025, 03/06/2025, 09/13/2022, Additional history exists Disability Screening 09/08/2026 09/08/2025 Tobacco Screening 09/09/2026 09/09/2025 Lipid Panel 09/08/2030 09/08/2025, 0510/2024, 09/13/2022, Additional history exists DTaP/Tdap/Td Vaccines (3 - Td or Tdap) 06/12/2032 06/12/2022, 12/06/2009 Zoster Vaccines (1 of 2) 2032 RSV Patients and Patients Aged 60 years or older (1 - 1-dose 75+ series) 2057 Hepatitis C Screening Completed 08/02/2022, 022 HIV Screening Completed 04/08/2025, 07/08, 08/02/2022 Influenza Vaccine Completed 09/09/2025, , 09/03/2022, Additional history exists Pneumococcal Vaccine: Pediatrics (0 to 5 Years) and At-Risk Patients (6 to 49) Years Completed 09/09/2025 HIB Vaccines Aged Out No longer eligi [...] Procedure Name Priority Date/Time Associated Diagnosis Comments XR CHEST 2 VIEWS Routine 09/08/2025 10:0 0 AM EST VITAMIN B1 Routine 09/08/2025 9:25 AM EST VITAMIN A Routine 09/08/2025 9:25 AM EST ZINC Routine 09/08/2025 9:25 AM EST VITAMIN B12/FOLATE, SERUM PANEL Routine 09/08/2025 9:25 AM EST INSULIN Routine 09/08/2025 9:25 AM EST TSH W/REFLEX TO FT4 Routine 09/08/2025 9 :25 AM EST VITAMIN D,25-OH,TOTAL,IA Routine 09/08/2025 9:25 AM EST FERRITIN Routine 09/08/2025 9:25 AM EST LIPID PANEL, STANDARD Routine 09/08/2025 9:25 AM EST C-REACTIVE PROTEIN Routine 09/08/2025 9: 25 AM EST IRON AND TOTAL IRON BINDING CAPACITY Routine 09/08/2025 9:25 AM EST COMPREHENSIVE METABOLIC PANEL Routine 09/08/2025 9:25 AM EST HEMOGLOBIN A1C Routine 09/08/2025 9:25 AM EST CBC WITH AUTO DIFFERENTIAL Routine 09/08/2025 9:25 AM EST HIV 1/2 ANTIGEN/ANTIBODY, FOURTH GENERATION W/RFL Routine 04/08/2025 11:41 AM EDT BI MAMMOGRAM SCREENING TOMOSYNTHESIS BILATERAL Routine 04/02/2025 11:40 AM EDT Encounter for screening mammogram for malignant neoplasm of breast ZZZ HISTORICAL HEPATITIS C ANTIBODY Routine 08/02/2022 9:54 AM EDT HM PAP/HPV Routine 10/12/2020 from Last 3 Months or Most Recently Relevant to Health Maintenance Results * XR Chest 2 Views (09/08/2025 10:00 AM EST) Anatomical Region Laterality Modality Chest Radiographic Manda ging 09/08/2025 10:0 0 AM EST Narrative 09/08/2025 10:42 AM EST [address] [address] XRay Report Signed Patient: Fanny Armstrong MR#: [id number] 66 : 1980 Acct:[id number] Age/Sex: 44 / F ADM Date: 09/08/25 Loc: HO.LAB Attending Dr: Parker Ortiz MD Ordering Physician: Parker Ortzi MD Date of Service: 09/08/25 Procedure(s): XR chest 2V Accession Number(s): [id number] cc: Name,Artie PEREZ; Parker Ortiz MD Reason for Exam: E66.01 - Morbid (severe) obesity due to excess calories EXAMINATION: XR CHEST 2 VIEWS HISTORY: E66.01 - Morbid (severe) obesity due to excess calories COMPARISON: Comparison is made with the prior examination dated 05/15/2021. FINDINGS: PA and lateral views of the chest are submitted. The lungs are expanded and clear. There is no pleural effusion, pneumothorax, or pulmonary vascular congestion. The heart is normal in size. There is mild degenerative disc disease of the spine. XR/XR chest 2V IMPRESSION: No acute cardiopulmonary abnormality. Electronically signed by: Juanito Cabrera MD 09/08/2025 10:39 AM EST Dictated By: Juanito Cabrera MD Signed By: <Electronically signed by Juanito Cabrera MD in OV> 09/08/25 1039 DD/ 1000 TD/TT: 09/08/25 1003 Spool Winder: Procedure Note Donotuseinterpreter, Image - 09/08/[address] [address] XRay Report Signed Patient: Fanny Armstrong [facility]#: [id number] 66 : 1980Acct:[id number] Age/Sex: 44 / FADM Date: 09/08/25 Loc: HO.LAB Attending Dr: Parker Ortiz MD Ordering Physician: Parker Ortiz MD Date of Service: 09/08/25 Procedure(s): XR chest 2V Accession Number(s): [id number] cc: Name,Artie PEREZ; Parker Ortiz MD Reason for Exam: E66.01 - Morbid (severe) obesity due to excess calories EXAMINATION: XR CHEST 2 VIEWS HISTORY: E66.01 - Morbid (severe) obesity due to excess calories COMPARISON: Comparison is made with the prior examination dated 05/15/2021. FINDINGS: PA and lateral views of the chest are submitted. The lungs are expanded and clear. There is no pleural effusion, pneumothorax, or pulmonary vascular congestion. The heart is normal in size. There is mild degenerative disc disease of the spine. XR/XR chest 2V IMPRESSION: No acute cardiopulmonary abnormality. Electronically signed by: Juanito Cabrera MD 09/08/2025 10:39 AM EST Dictated By: Juanito Cabrera MD Signed By: <Electronically signed by Juanito Cabrera MD in OV> 09/08/25 1039 DD/ 1000 TD/TT: 09/08/25 1003 Spool Winder: [facility] External Provider IMG XR PROCEDURES Final Result * (ABNORMAL) Vitamin D, 25-Hydroxy, Total, Immunoassay (09/08/2025 9:25 AM EST) Vitamin D 25-OH Total 7.8(L) >30 ng/mL [facility] Comment: Health Based Reference Values*< 20 ng/mL Rlwyiibqp26-04 ng/mL Insufficient> 30 ng/mL Sufficient*Juan DAVIS. N Engl J Med. 2007;357:266-280There is no well-established upper level of normal vitamin Dlevels. Some laboratories use 50 ng/mL as an upper limit ofnormal. However, toxicity is patient-dependent and may occurat any level. Careful correlation with the patient'spresentation is necessary and, if there is concern forvitamin D toxicity, treatment should be consideredirrespective of the serum level.Care must be taken in interpreting Vitamin D results fromdifferent laboratories and methodologies. Published datademonstrated that results from patients undergoinghemodialysis may show a negative bias when tested withvarious automated 25-OH vitamin D assays when compared toLC-MS/MS.When testing samples from patients whose predominant form ofVitamin D is Vitamin D2, such as patients receiving VitaminD2 supplementation, results that are subtherapeutic shouldbe confirmed with another method such as LC-MS/MS. 09/08/2025 9:25 AM EST 09/08/2025 9:25 AM EST Generic External Data Provider LAB BLOOD ORDERAB LES Final Result Performing Organization Address [facility]/ZIP Co de Phone Number [facility] [address] [place] [phone] * Vitamin B12 (Cobalamin) and Folate Panel, Serum (09/08/2025 9:25 AM EST) Vitamin B12 747 200 - 900 pg/mL [facility] Comment:NORMAL 200-900 PG/ML INDETERMINATE 160-199 PG/ML DEFICIENT < 160 PG/ML Folate 9.9 > or = 4.0 ng/mL [facility] Comment:Reference Values:> o r = 4.0 ng/mL< 4.0 ng/mL suggests folate deficiency Methotrexate, aminopterin and folinic acid(leucovorin) are chemotherapeutic agents whose molecularstructures are similar to folate; therefore, the Architectfolate assay cannot be used for patients using these drugs. 09/08/2025 9:25 AM EST 09/08/2025 9:25 AM EST us Generic External Data Provider LAB BLOOD ORDERAB LES Final Result Performing Organization Address [facility]/ZIP Co de Phone Number [facility] [address] [place] [phone] * TSH with Reflex to Free T4 (09/08/2025 9:25 AM EST) TSH reflex Free T4 0.97 0.32 - 4.0 uIU/mL [facility] 09/08/2025 9:25 AM EST 09/08/2025 9:25 AM EST us Generic External Data Provider LAB BLOOD ORDERAB LES Final Result [facility] [address] [place] [phone] [phone] * (ABNORMAL) CBC auto differential (09/08/2025 9:25 AM EST) Pathologist [facility] White Blood Count 7.6 4.8 - 10.8 X10*3/uL [facility] Red Blood Count 5.02 4.20 - 5.50 X10*6/uL [facility] Hemoglobin 14.7 12.0 - 16.0 g/dl [facility] Hematocrit 44.1 37.0 - 47.0 % [facility] Mean Corpuscular Volume 87.8 80.0 - 98.0 fL [facility] Mean Corpuscular Hemoglobin 29.3 27.0 - 33.0 pg [facility] Mean Corpuscular HGB Conc 33.3 31.0 - 35.0 g/dl [facility] Red Cell Distribution Width 12.6 11.0 - 16.0 % [facility] Platelet Count 339 160 - 400 X10*3/uL [facility] Mean Platelet Volume 8.4(L) 9.4 - 12.3 fL [facility] Neutrophils Percent Auto 55.9 45 - 73 % [facility] Imm Gran Pct Auto 0.8(H) 0.0 - 0.4 % [facility] Lymphocytes Percent Auto 31.5 20 - 40 % [facility] Monocytes Percent Auto 9.6 2 - 11 % [facility] Eosinophils Percent Auto 1.7 0 - 4 % [facility] Basophils Percent Auto 0.5 0 - 2 % [facility] NRBC Pct Auto 0.0 0.0 - 0.2 /100WBC [facility] Neutrophils Absolute Auto 4.3 2.0 - 8.3 x10*3/uL [facility] Imm Gran Abs Auto 0.06(H) 0.00 - 0.03 X10*3/uL [facility] Lymphocytes Absolute Auto 2.4 1.2 - 4.9 X10*3/uL [facility] Monocytes Absolute Auto 0.7 0.1 - 1.2 X10*3/uL [facility] Eosinophils Absolute Auto 0.1 0.0 - 0.4 X10*3/uL [facility] Basophils Absolute Auto 0.0 0.0 - 0.2 X10*3/uL [facility] NRBC Abs Auto 0.000 0.0 - 0.012 X10*3/uL [facility] 09/08/2025 9:25 AM EST 09/08/2025 9:25 AM EST us Generic External Data Provider LAB BLOOD ORDERAB LES Final Result Performing Organization Address [facility] Co de Phone Number [facility] [address] [place] [phone] * Iron And Total Iron Binding Capacity (09/08/2025 9:25 AM EST) Iron 59 30 - 160 mcg/dL [facility] Total Iron Binding Capacity 265 228 - 428 mcg/dL [facility] Percent Iron Saturation 22 15 - 50 % [facility] Unsaturated Iron Binding 206 ug/dL [facility] 09/08/2025 9:25 AM EST 09/08/2025 9:25 AM EST us Generic External Data Provider LAB BLOOD ORDERAB LES Final Result Performing Organization Address [facility] Co de Phone Number [facility] [address] [place] [phone] * Insulin (09/08/2025 9:25 AM EST) Insulin 25 2 - 29 uU/mL [facility] Comment:This test was perfor med using the Piedra chemiluminescentmethod. Values obtained from different assay methods cannot beused interchangeably. This insulin assay shows a possiblecross-reactivity with antibodies generated against insulin(immunoreactive insulin and some patients treated withbovine or porcine insulin). Insulin levels may be measuredlower in patients with insulin autoimmune syndrome orfamilial high pro-insulinemia. 09/08/2025 9:25 AM EST 09/08/2025 9:25 AM EST us Generic External Data Provider LAB BLOOD ORDERAB LES Final Result Performing Organization Address City/[facility]/ZIP Co de Phone Number [facility] [address] [place] [phone] * Zinc (09/08/2025 9:25 AM EST) Zinc 80 60 - 130 mcg/dL [facility] Comment:This test was develo ped and its analytical performancecharacteristics have been determined by [employer] [place], [place]. It hasnot been cleared or approved by the U.S. Food and DrugAdministration. This assay has been validated pursuantto the CLIA regulations and is used for clinicalpurposes.THIS TEST WAS PERFORMED AT:[id number] [place] [id number] BRANTLEY MD,PHD 09/08/2025 9:25 AM EST 09/08/2025 9:25 AM EST us Generic External Data Provider LAB BLOOD ORDERAB LES Final Result Performing Organization Address City/[facility]/ZIP Co de Phone Number [facility] [address] [place] [phone] * Vitamin A (09/08/2025 9:25 AM EST) Pathologist [facility] Vitamin A (Retinol) 49 38 - 98 mcg/dL [facility] Comment:Vitamin supplementat ion within 24 hours prior toblood draw may affect the accuracy of the results.This test was developed and its analytical performancecharacteristics have been determined by [employer] [place], [place]. It hasnot been cleared or approved by the U.S. Food and DrugAdministration. This assay has been validated pursuantto the CLIA regulations and is used for clinicalpurposes.THIS TEST WAS PERFORMED AT:[employer]/[facility] [place] [id number] BRANTLEY MD,PHD 09/08/2025 9:25 AM EST 09/08/2025 9:25 AM EST Generic External Data Provider LAB BLOOD ORDERAB LES Final Result Performing Organization Address City/[facility]/ZIP Co de Phone Number [facility] [address] [place] [address] [phone] * (ABNORMAL) C-reactive Protein (09/08/2025 9:25 AM EST) [facility] C Reactive Protein 0.63(H) < or = 0.50 mg/dL [facility] 09/08/2025 9:25 AM EST 09/08/2025 9:25 AM EST Generic External Data Provider LAB BLOOD ORDERAB LES Final Result Performing Organization Address City/[facility]/ZIP Co de Phone Number [facility] [address] [place] [phone] * Vitamin B1 (09/08/2025 9:25 AM EST) [facility] Vitamin B1 15 8 - 30 nmol/L [facility] Comment:Vitamin supplementat ion within 24 hours prior toblood draw may affect the accuracy of the results.This test was developed and its analytical performancecharacteristics have been determined by [employer] [place], [place]. It hasnot been cleared or approved by the U.S. Food and DrugAdministration. This assay has been validated pursuantto the CLIA regulations and is used for clinicalpurposes.THIS TEST WAS PERFORMED AT:[employer]/[facility] [place] [id number] BRANTLEY MD,PHD 09/08/2025 9:25 AM EST 09/08/2025 9:25 AM EST us Generic External Data Provider LAB BLOOD ORDERAB LES Final Result Performing Organization Address [facility]/ZIP Co de Phone Number [facility] [address] [place] [address] [phone] * Hemoglobin A1c (09/08/2025 9:25 AM EST) Pathologist [facility] Hemoglobin A1c 5.9 <6.0 % [facility] Comment:Hemoglobin A1C Refer ence Range Adults: 4.8 - 6.0 % Non diabetic: < 6.0 % Goal: < 7.0 %Additional Action Suggested: > 8.0 %Note: Hemoglobin A1c results are invalid for patients with abnormal amounts of HbF. Blood transfusions may impact the HbA1c concentration in the patient sample. Estimated Average Glucose 123 mg/dL [facility] Comment:eAG = Estimated ave rage glucose which is %A1C expressed asaverage glucose, using the formula of the [id number]-[id number] Glucose study (ADAG), Diabetes Care, Vol.31,#8,Aug. 2007 09/08/2025 9:25 AM EST 09/08/2025 9:25 AM EST Generic External Data Provider LAB BLOOD ORDERAB LES Final Result Performing Organization Address [facility] Co de Phone Number [facility] [address] [place] [phone] * Ferritin (09/08/2025 9:25 AM EST) Pathologist [facility] Ferritin 56 10 - 250 ng/mL [facility] 09/08/2025 9:25 AM EST 09/08/2025 9:25 AM EST Generic External Data Provider LAB BLOOD ORDERAB LES Final Result Performing Organization Address City/[facility] Co de Phone Number [facility] [address] [place] [phone] * (ABNORMAL) Lipid Panel, Standard (09/08/2025 9:25 AM EST) [facility] Triglycerides 76 <150 mg/dL [facility] Comment:Desirable Triglyceri de: less than 150 mg/dLBorderline High Triglyceride 150-199 mg/dLHigh Triglyceride: 200-499 mg/dLVery High Triglyceride: greater than or equal to 5OO mg/dL Cholesterol 158 <200 mg/dL [facility] Comment:Desirable Cholestero l: less than 200 mg/dLBorderline High Cholesterol: 200-239 mg/dLHigh Cholesterol: greater than 239 mg/dL LDL Cholesterol Calculated 105(H) <100 mg/dL [facility] Comment:Desirable LDL: less than 100 mg/dLNear Optimal/Above Optimal LDL: 110- 129 mg/dLBorderline High LDL: 130-159 mg/dLHigh LDL: 160-189 mg/dLVery High LDL: greater than or equal to 190 mg/dL HDL Cholesterol 38(L) >40 mg/dL [facility] Comment:Desirable HDL: great er than 40 mg/dL Note: This HDL assay may give artificially low results in patients with liver disease. 09/08/2025 9:25 AM EST 09/08/2025 9:25 AM EST us Generic External Data Provider LAB BLOOD ORDERAB LES Final Result Performing Organization Address City/[facility]/ZIP Co de Phone Number [facility] [address] [place] [phone] * (ABNORMAL) Comprehensive Metabolic Panel (09/08/2025 9:25 AM EST) Pathologist [facility] Sodium 141 135 - 145 mmol/L [facility] Potassium 4.3 3.3 - 5.1 mmol/L [facility] Chloride 109(H) 96 - 108 mmol/L [facility] Carbon Dioxide 25 22 - 29 mmol/L [facility] Anion Gap 11(L) 12 - 20 [facility] Urea Nitrogen (BUN) 12 9 - 16 mg/dL [facility] Creatinine, Serum 0.72 0.5 - 1.4 mg/dL [facility] Estimated Glomerular Filt Rate >60 [facility] Comment:Chronic Kidney Disea se: Estimated GFR < 60 mL/min/[id number] Kidney Disease: Estimated GFR < 15 mL/min/1.73m2 Glucose 102 60 - 115 mg/dL [facility] Calcium 9.4 8.4 - 10.2 mg/dL [facility] Bilirubin, Total 0.4 0.0 - 1.0 mg/dL [facility] Aspartate Amino Transferase 34(H) 5 - 31 U/L [facility] Alanine Aminotransferase 46(H) 0 - 31 U/L [facility] Total Protein 7.7 6.5 - 8.0 g/dL [facility] Albumin Level 4.2 3.5 - 5.0 g/dL [facility] Alkaline Phosphatase 51 39 - 117 U/L [facility] 09/08/2025 9:25 AM EST 09/08/2025 9:25 AM EST us Generic External Data Provider LAB BLOOD ORDERAB LES Final Result [facility] [address] [place] [phone] * HIV-1/2 Antigen and Antibodies, Fourth Generation, with Reflexes (04/08/2025 11:41 AM EDT) HIV AB/AG Nonreactive Nonreactive [facility] Comment:HIV-1 p24 Ag and/or HIV-1/HIV-2 Ab not detected.A test result that is nonreactive does not exclude thepossibility of exposure to or infection with HIV-1 and/orHIV-2. Nonreactive results in this assay for individualswith prior exposure to HIV-1 and/or HIV-2 may be due toantigen and antibody levels that are below the limit ofdetection of this assay.The [employer] HIV Ag/Ab Combo assay result andsupplemental assay results should be interpreted inconjunction with the patient's clinical presentation,history and other laboratory results. If the results areinconsistent with clinical evidence, additional testing issuggested to confirm the result. 04/08/2025 11:4 1 AM EDT 04/08/2025 11:41 AM EDT us Generic External Data Provider LAB BLOOD ORDERAB LES Final Result Performing Organization Address City/State/[facility] Co de Phone Number [facility] [address] [place] [phone] * BI Mammogram Screening Tomosynthesis Bilateral (04/02/2025 11:40 AM EDT) Anatomical Region Laterality Modality Breast Bilateral Mammography 04/02/2025 11:4 0 AM EDT Narrative 04/17/2025 10:52 PM EDT [address] [place] [address] Mammography Report Signed Patient: Fanny Armstrong MR#: [id number] 66 : 1980 Acct:[id number] Age/Sex: 44 / F ADM Date: 04/02/25 Loc: HO.MAMMO Attending Dr: Artie Zelaya MD Ordering Physician: Artie Zelaya MD Results: 1Negative Date of Service: 04/02/25 Follow Up: 1 Year From Orig ina Mammogram Procedure(s): MM tomosynthesis screening BI Accession Number(s): [id number] cc: Artie Zelaya MD EXAMINATION: MM SCREENING [...] 04/17/25 2249 DD/ 1140 TD/TT: 04/02/25 1200 Spool Winder: Procedure Note Donotuseinterpreter, Image - 04/17/2025 [facility] [address] [address] Mammography Report Signed Patient: Fanny Armstrong [facility]#: [id number] 66 : 1980Acct:[id number] Age/Sex: 44 / FADM Date: 04/02/25 Loc: [facility]AMMO Attending Dr: Artie Zelaya MD Ordering Physician: Artie Zelaya MDResults: 1Negative Date of Service: 04/02/25Follow Up: 1 Year From Orig ina Mammogram Procedure(s): MM tomosynthesis screening BI Accession Number(s): [id number] cc: Artie Zelaya MD EXAMINATION: MM SCREENING [...] their next mammogram. Electronically signed by: Rosalba Whyet DO 04/17/2025 10:49 PM EDT RP Dictated By: Rosalba Whyte DO Signed By: <Electronically signed by Rosalba Whyte DO in OV> 04/17/25 2249 DD/ 1140 TD/TT: 04/02/25 1200 Spool Winder: Artie CASANOVA BI PROCEDURES Edited Result - Final * Hepatitis C Antibody (08/02/2022 9:54 AM [...] of detection of this assay. The [employer] HIV Ag/Ab Combo assay result and supplemental [...] Recently Relevant to Health Maintenance Insurance [facility] , [address] [place] [address] Care Teams Transfer Specialist Relationship Specialty Start Date End Date Name, MD Artie [address] [place] [phone] PCP - General Family Medicine 01/11/16
--- OUTSIDE RECORDS SUMMARY | 2025-10-06 12:14 | XMS_ITS | Encounter Summary ---
Author Organization [employer] Address [address] [place] [address] [address] [place] [address] Care Team Providers Care Estimator And Drafter Name Role Phone Name, Artie PEREZ Primary Care Provider [phone] Reason for Visit * Reason Onset Date Comments Nurse Triage 02/15/2025 Encounter Details Date Type Department Care Team ([facility] Contact Info) Description 02/15/2025 Telephone [facility] [address] [place], [place] [phone] Name, MD Artie [address] [place] [address] Nurse Triage Social History Tobacco Use Types [...] Description 11/17/2025 9:30 AM EST Office Visit [facility] [address] [place] [phone] Name, MD Artie [address] [place] [address] documented as of this encounter Visit Diagnoses Not on filedocumented in this encounter Additional Health Concerns Assessment Noted Time PHQ-9 Depression Total Score: 24 024 9:40 AM EDT documented as of this encounter Care Teams Estimator And Drafter Relationship Specialty Start Date End Date Name, MD Artie [address] [place] [phone] PCP - General Family Medicine 01/11/16 documented as of this encounter
--- OUTSIDE RECORDS SUMMARY | 2025-10-06 12:15 | XMS_ITS | Clinical Summary ---
Author Organization [employer] [facility] Address [address] [place] [address] Security Officer Name Role Phone Name, Artie PEREZ Primary Care Provider [phone] Surgical History Surgery Date Site/Laterality Comments APPENDECTOMY age 10 PROCEDURE: HISTORICAL APPENDECTOMY TUBAL LIGATION 2007 PROCEDURE: HISTORICAL TUBAL LIGATION Medical History Medical History Date Comments Bipolar affective disorder ( CMS/HCC V24, CMS/HCC V28) 07/14/2009 DX:Bipolar affective disorde r ([facility]) Elevated rheumatoid factor 06/05/2009 DX:El evated rheumatoid [...] Cervical Cancer Screening: P ap Smear 12/19/2003 HPV Vaccines (1 - 3-dose SCD M series) 2009 DTaP,Tdap,and Td Vaccines (2 - Td or Tdap) 12/07/2019 12/06/2009 Depression Screening 10/07/2024 COVID-19 Vaccine (1 - 2024-2 6 season) 2025 Influenza Vaccine (#1) 2025 5, 10/11/2014 RSV Immunization Adult Patients (1 - 1-dose 75+ series) 2057 HIB Vaccines Aged Out No longer eligi [...] age to complete this topic Care Teams Court Security Officer Relationship Specialty Start Date End Date Name, MD Artie [address] [place], [place] PCP - General 06/26/11
== END 2025-10-06 14:12 | disposition home or self-care (01) ==
LOC: HO.HBST 10:49
PROVIDERS: PCP Internal Medicine Geriatric Medicine; Visit Provider Counselor Mental Health
DX: F43.9 Reaction to severe stress, unspecified (principal); F39 Unspecified mood [affective] disorder; Z71.89 Other specified counseling
CPT/HCPCS: 90837